=== PATIENT | female | born 1945 | race African-American/Black ===

== ENCOUNTER 2018-07-13 09:32 | Inpatient (IN) | payer MEDICARE, MEDICAID ==
[2018-07-13] VITALS (13 sets, daily range): BP systolic 98–134; BP diastolic 43–71
[~2018-07-13] VITALS: Ht 170.2 cm; Wt 46.8 kg
--- NOTE | 2018-07-13 | NUR ---
NURSE NOTES: more awake and alert at this time, blood sugar 124 and on insulin drip at 1.5 units/hr, on algorithm 2,urine output improved
--- NOTE | 2018-07-13 09:40 | NUR ---
ED Nurse Note: Pt BIBA from [facility] due to ALOC since this morning. According to EMS, pt is nonverbal but is able to sit up usually. Pt skin warm to touch. On continuous O2 via NC at 2lpm. Hx of DM and schizo. Pt presents in the ER calm and looking lethargic.
[2018-07-13] MEDS ORDERED: AMLODIPINE BESY10 MG ORAL (09:44)
[2018-07-13] MEDS ORDERED: MULTIVITAMINS1 EAC2 ORAL (09:44)
[2018-07-13] MEDS ORDERED: GLIPIZIDE5 MG ORAL (09:44)
[2018-07-13] MEDS ORDERED: FLEET ENEMA133 ML RECTAL (09:44)
[2018-07-13] MEDS ORDERED: KLONOPIN1 MG ORAL (09:44)
[2018-07-13] MEDS ORDERED: GLUCAGON HCL1 MG IJ (09:44)
[2018-07-13] MEDS ORDERED: SEROQUEL50 MG ORAL (09:44)
[2018-07-13] MEDS ORDERED: CATAPRES0.1 MG ORAL (09:44)
[2018-07-13] MEDS ORDERED: ASPIR-LOW81 MG ORAL (09:44)
[2018-07-13] MEDS ORDERED: COLACE100 MG ORAL (09:44)
[2018-07-13] MEDS ORDERED: BISACODYL5 MG ORAL (09:44)
[2018-07-13] MEDS ORDERED: SENNA8.6 M2 PO (09:44)
[2018-07-13] MEDS ORDERED: MILK OF MA400 MG/51 ORAL (09:44)
[2018-07-13] MEDS ORDERED: LEXAPRO10 MG ORAL (09:44)
[2018-07-13] MEDS ORDERED: BENZTROPINE ME0.5 MG PO (09:44)
[2018-07-13] MEDS ORDERED: ACETAMINOPHEN325 M1 ORAL (09:44)
--- NOTE | 2018-07-13 09:49 | Emergency Room Report ---
History of Present Illness General Chief Complaint: Altered Mental Status Source: Medical Record, EMS Present Illness HPI Patient has multiple medical problems including dementia currently stays at a long-term. Patient apparently is nonverbal but is able to smile. Patient today was noted to be more confused than usual. Be dehydrated with dry mucous membranes. Patient appear to be staring off into space. No further history is available as time. Symptoms noted to be highly severe patient was brought here further evaluation. There is no advanced directive on this patient. Patient's primary care physician is Dr. Dave Dugan.No other modifying factors. No other associated signs and symptoms. No other complaints were noted. Allergies: Coded Allergies: No Known Allergies (Unverified , 07/13/18) Patient History Past Medical History: DM, HTN, CAD, psych hx - Schizophren, other - Dysphagia Past Surgical History: unable to obtain Social History Narrative staying in long-term Last Menstrual Period: n/a Now: No Reviewed Nursing Documentation: PMH: Agreed; PSxH: Agreed Nursing Documentation-PMH Hx Cardiac Problems: Yes Hx Hypertension: Yes Hx Diabetes: Yes History Of Psychiatric Problem: Yes - schizophrenia Hx Neurological Problems: Yes - dysphagia Review of Systems All Other Systems: limited - Poor mental status Physical Exam Vital Signs Date Time Temp Pulse Resp B/P (MAP) Pulse Ox O2 Delivery O2 Flow Rate FiO2 07/13/18 09:29 98.2 106 16 136/74 97 Room Air 07/13/18 09:32 2.0 Sp02 EP Interpretation: reviewed, normal General Appearance: mild distress, thin, other - Staring off into space. Appears ill. unable to answer questions., Chronically Ill Head: atraumatic Eyes: bilateral eye normal inspection ENT: normal ENT inspection, hearing grossly normal, dry mucus membranes Neck: normal inspection, supple, no bony tend Respiratory: normal inspection, lungs clear, normal breath sounds, no respiratory distress, no retraction, no wheezing Cardiovascular #1: regular rate, rhythm, no edema Gastrointestinal: soft, decreased bowel sounds Genitourinary: no CVA tenderness Musculoskeletal: normal inspection, back normal Neurologic: other - Unable to full assess, appears generally confused Psychiatric: depressed affect Skin: warm/dry Procedures Critical Care Time Critical Care Time Patient had a critical medical condition which untreated could potentially result in life or limb threatening injury. Total critical care time excluding procedures was approximately 65 minutes. Medical Decision Making Diagnostic Impression: Primary Impression: Altered mental status Additional Impressions: Hyperglycemia Severe sepsis Dehydration Hypernatremia ER Course Patient presents emergency department today with acute altered mental status. Difficult considerations include acute electrolyte abnormality, acute infection , acute CVA just to name a few.Given the severity of the patient's presentation I felt this is a highly complex patient. This patient required extensive workup. Patient's laboratory workup shows evidence of severely elevated glucose. Lactic acid level and white blood cell count also elevated as well as elevated sodium. This is consistent with severe hypernatremia. Patient was started on fluid boluses for hydration patient appears to be severely dehydrated. Patient was also started an insulin drip because of the elevated glucose. Patient was started on IV antibiotics as well. Zosyn was ordered. Blood cultures were obtained. Patient will be admitted for further treatment. Case was discussed in detail with Dr. Bryant. Labs Test 07/13/18 10:10 07/13/18 10:37 07/13/18 11:20 White Blood Count 14.1 K/UL (4.8-10.8) Red Blood Count 5.37 M/UL (4.20-5.40) Hemoglobin 14.3 G/DL (12.0-16.0) Hematocrit 46.9 % (37.0-47.0) Mean Corpuscular Volume 87 FL (80-99) Mean Corpuscular Hemoglobin 26.6 PG (27.0-31.0) Mean Corpuscular Hemoglobin Concent 30.4 G/DL (32.0-36.0) Red Cell Distribution Width 13.0 % (11.6-14.8) Platelet Count 398 K/UL (150-450) Mean Platelet Volume 6.9 FL (6.5-10.1) Neutrophils (%) (Auto) % (45.0-75.0) Lymphocytes (%) (Auto) % (20.0-45.0) Monocytes (%) (Auto) % (1.0-10.0) Eosinophils (%) (Auto) % (0.0-3.0) Basophils (%) (Auto) % (0.0-2.0) Differential Total Cells Counted 100 Neutrophils % (Manual) 91 % (45-75) Lymphocytes % (Manual) 6 % (20-45) Monocytes % (Manual) 3 % (1-10) Eosinophils % (Manual) 0 % (0-3) Basophils % (Manual) 0 % (0-2) Band Neutrophils 0 % (0-8) Platelet Estimate Adequate Platelet Morphology Normal Hypochromasia 1+ Urine Color Pale yellow Urine Appearance Slightly cloudy Urine pH 5 (4.5-8.0) Urine Specific [place] 1.015 (1.005-1.035) Urine Protein 1+ (NEGATIVE) Urine Glucose (UA) 4+ (NEGATIVE) Urine Ketones Negative (NEGATIVE) Urine Blood 2+ (NEGATIVE) Urine Nitrite Negative (NEGATIVE) Urine Bilirubin Negative (NEGATIVE) Urine Urobilinogen Normal MG/DL (0.0-1.0) Urine Leukocyte Esterase Negative (NEGATIVE) Urine RBC 0-2 /HPF (0 - 2) Urine WBC 0-2 /HPF (0 - 2) Urine Squamous Epithelial Cells Few /LPF (NONE/OCC) Urine Bacteria Many /HPF (NONE) Sodium Level 157 MMOL/L (136-145) Potassium Level 4.2 MMOL/L (3.5-5.1) Chloride Level 118 MMOL/L (98-107) Carbon Dioxide Level 26 MMOL/L (21-32) Anion Gap 13 mmol/L (5-15) Blood Urea Nitrogen 74 mg/dL (7-18) Creatinine 2.0 MG/DL (0.55-1.30) Estimat Glomerular Filtration Rate mL/min (>60) Glucose Level 852 MG/DL (74-106) Calcium Level 10.4 MG/DL (8.5-10.1) Total Bilirubin 0.4 MG/DL (0.2-1.0) Aspartate Amino Transf (AST/SGOT) 68 U/L (15-37) Alanine Aminotransferase (ALT/SGPT) 36 U/L (12-78) Alkaline Phosphatase 42 U/L (46-116) Troponin I 0.000 ng/mL (0.000-0.056) Pro-B-Type Natriuretic Peptide 658 pg/mL (0-125) Total Protein 8.9 G/DL (6.4-8.2) Albumin 2.6 G/DL (3.4-5.0) Globulin 6.3 g/dL Albumin/Globulin Ratio 0.4 (1.0-2.7) Lipase 58 U/L (73-393) Lactic Acid Level 4.60 mmol/L (0.4-2.0) EKG Diagnostic Results Rate: tachycardiac Rhythm: NSR ST Segments: no acute changes Rhythm Strip Diag. Results EP Interpretation: yes Rate: 115 Rhythm: NSR, no PVC's, no ectopy Chest X-Ray Diagnostic Results Chest X-Ray Diagnostic Results : Chest X-Ray Ordered: Yes # of Views/Limited/Complete: 1 View Indication: Chest Pain EP Interpretation: Yes Interpretation: no consolidation, no effusion, no pneumothorax, no acute cardiopulmonary disease Impression: No acute disease Electronically Signed by: Electronically signed by Avelino Wells MD CT/MRI/US Diagnostic Results CT/MRI/US Diagnostic Results : Imaging Test Ordered: CT head: Negative Last Vital Signs Date Time Temp Pulse Resp B/P (MAP) Pulse Ox O2 Delivery O2 Flow Rate FiO2 07/13/18 09:32 98.2 113 18 131/78 97 Nasal Cannula 2.0 Status: improved Disposition: ADMITTED INPATIENT Condition: Critical Avelino Wells MD Jul 13, 2018 09:49
--- NOTE | 2018-07-13 10:15 | NUR ---
ED Nurse Note: Pt went down to CT.
[2018-07-13 10:19] LABS: HEMATOCRIT 46.9 % (37.0-47.0); HEMOGLOBIN 14.3 G/DL (12.0-16.0); MEAN CORPUSCULAR VOLUME 87 FL (80-99); PLATELET COUNT 398 K/UL (150-450); RED BLOOD COUNT 5.37 M/UL (4.20-5.40); WHITE BLOOD COUNT 14.1 K/UL (4.8-10.8)
--- NOTE | 2018-07-13 10:27 | NUR ---
ED Nurse Note: Pt came back from CT.
--- NOTE | 2018-07-13 10:33 | NUR ---
ED Nurse Note: Xray at the bedside.
[2018-07-13 10:37] LABS: ANION GAP 13 mmol/L (5-15); BLOOD UREA NITROGEN 74 mg/dL (7-18); CALCIUM 10.4 MG/DL (8.5-10.1); CARBON DIOXIDE 26 MMOL/L (21-32); CHLORIDE 118 MMOL/L (98-107); POTASSIUM 4.2 MMOL/L (3.5-5.1); SODIUM 157 MMOL/L (136-145)
[2018-07-13 10:43] LABS: APPEARANCE,URINE SLIGHTLY CLOUDY; BILIRUBIN, URINE NEGATIVE (NEGATIVE); COLOR,URINE PALE YELLOW; GLUCOSE, URINE (UA) 4+ (NEGATIVE); KETONES,URINE NEGATIVE (NEGATIVE); LEUKOCYTE ESTERASE ,URINE NEGATIVE (NEGATIVE); NITRITE,URINE NEGATIVE (NEGATIVE); PH,URINE 5 (4.5-8.0); PROTEIN,URINE 1+ (NEGATIVE); UROBILINOGEN,URINE NORMAL MG/DL (0.0-1.0)
[2018-07-13 10:45] LABS: ALANINE AMINOTRANSFERASE 36 U/L (12-78); ALBUMIN 2.6 G/DL (3.4-5.0); ALBUMIN/GLOBULIN RATIO 0.4 (1.0-2.7); ALKALINE PHOSPHATASE 42 U/L (46-116); ASPARTATE AMINO TRANSFERASE 68 U/L (15-37); BILIRUBIN,TOTAL 0.4 MG/DL (0.2-1.0)
--- NOTE | 2018-07-13 10:50 | NUR ---
ED Nurse Note: Notified pharmacy of insulin drip order. Awaiting for med to arrive.
--- NOTE | 2018-07-13 10:55 | Diagnostic Imaging Report ---
Indications: Altered mental status Technique: Spiral acquisitions obtained through the brain. Angled axial and coronal 5 x 5 mm slices were reconstructed. Total dose length product 1397.2 mGycm. CTDI vol(s) 70.38 mGy. Dose reduction achieved using automated exposure control Comparison: None. Findings: There is age-related enlargement of the ventricles and extra axial CSF spaces. There is periventricular deep white matter low-attenuation, consistent with chronic ischemic changes. No acute intracranial hemorrhage or edema, mass effect, nor midline shift. Visualized orbits and sinuses are unremarkable. The calvarium is intact, hyperostotic. There is some encephalomalacia of the left cerebellar hemisphere. Likely old lacunar infarct is seen in the left posterior internal capsule extending into the hippocampus. Impression: Chronic and age-related changes as described, including evidence of old infarcts Negative for acute intracranial bleed or mass effect The CT scanner at [facility] is accredited by the [employer] and the scans are performed using protocols designed to limit radiation exposure to as low as reasonably achievable to attain images of sufficient resolution adequate for diagnostic evaluation.
--- NOTE | 2018-07-13 10:59 | NUR ---
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
[2018-07-13] MEDS ORDERED: Insulin Rate Change 1 Each MISC PRN (11:30)
[2018-07-13] MEDS ORDERED: Insulin Human Regular 100units/ml 3ml IV PRN ×4 (11:30→18:15)
[2018-07-13] MEDS ORDERED: Albuterol/Ipratropium 3ml neb HHN PRN (11:30)
[2018-07-13] MEDS ORDERED: Miralax 17gm pkt ORAL PRN (11:30)
[2018-07-13] MEDS ORDERED: LORazepam Inj 2mg/ml 1ml IV PRN (11:30)
[2018-07-13] MEDS ORDERED: Morphine Sulfate 4mg/ml Inj (IV USE ONLY) IVP PRN (11:30)
[2018-07-13] MEDS ORDERED: Nitroglycerin Subl 0.4mg tab SL PRN (11:30)
--- NOTE | 2018-07-13 12:02 | NUR ---
ED Nurse Note: Lactic acid reflex sent to lab.
--- NOTE | 2018-07-13 12:08 | NUR ---
ED Nurse Note: Gave telephone report to MARYBETH Davis.
--- NOTE | 2018-07-13 12:10 | NUR ---
ED Nurse Note: Pt transferred to unit. No acute distress noted. Pt had no belongings.
--- NOTE | 2018-07-13 12:15 | NUR ---
NURSE NOTES: Received patient from MARYBETH Torres. Patient is nonverbal, admitted for DKA, VSS, on 2 L nasal cannula, 2 peripheral IV's dry and intact, no skin issues noted, vasquez draining to gravity, safety measures in place. Insulin drip at 6 units/hr at the moment, checked BS and says "critically high." Will continue plan of care.
[2018-07-13] MEDS ORDERED: Piperacillin/Tazobactam 4.5 GM in NS 110 ML IVPB ONE (12:45)
[2018-07-13] MEDS: Zoysn 3.37gm in NS 100ML IVPB SCH ×2 (13:10→22:06)
--- NOTE | 2018-07-13 14:00 | Pulmonolgy Critical Care Note ---
Critical Care - Asmt/Plan Problems: (1) Acute metabolic encephalopathy (2) DKA, type 1 (3) Alzheimer's dementia (4) History of CVA (cerebrovascular accident) Respiratory: monitor respiratory rate, adjust FIO2, CXR Cardiac: continue to monitor HR/BP Renal: F/U I&O Infectious Disease: check cultures, continue antibiotics Gastrointestinal: continue feedings/current rate Endocrine: monitor blood sugar Hematologic: monitor H/H Neurologic: PRN Ativan Prophylaxis: Protonix Notes Reviewed: renal Critical Care - Objective Last 24 Hour Vital Signs Date Time Temp Pulse Resp B/P (MAP) Pulse Ox O2 Delivery O2 Flow Rate FiO2 07/13/18 13:06 97.2 100 20 130/45 98 Nasal Cannula 2.0 07/13/18 12:43 Nasal Cannula 2.0 07/13/18 12:11 98.2 94 16 129/52 100 Nasal Cannula 2.0 100 07/13/18 12:00 Nasal Cannula 2.0 07/13/18 10:18 98.2 109 21 126/71 100 Nasal Cannula 2.0 07/13/18 10:18 109 21 Nasal Cannula 2.0 100 07/13/18 09:32 98.2 113 18 131/78 97 Nasal Cannula 2.0 07/13/18 09:29 98.2 106 16 136/74 97 Room Air Status: sedated Lungs: clear Heart: HR/BP stable Abdomen: soft Extremities: no C/C/E Micro: Microbiology Date/Time Source Procedure Growth Status 07/13/18 12:05 Rectum Received Critical Care - Subjective ROS Limited/Unobtainable: Yes Interval Events: 73 year old female with hx of dementia, [facility] resident, nonverbal brought in by paramedics with CC of more confused than usual. Patient looked dehydrated with dry mucous membranes. No other associated signs and symptoms. No other complaints were noted. Pt was found to be in DKA and admitted to ICU. She looks awake, doesn't follow simple commands. FI02: 100 Sputum Amount: None Fluids: NS at 150 cc/hour Labs: Laboratory Tests Test 07/13/18 10:10 07/13/18 10:37 07/13/18 11:20 White Blood Count 14.1 K/UL (4.8-10.8) H Red Blood Count 5.37 M/UL (4.20-5.40) Hemoglobin 14.3 G/DL (12.0-16.0) Hematocrit 46.9 % (37.0-47.0) Mean Corpuscular Volume 87 FL (80-99) Mean Corpuscular Hemoglobin 26.6 PG (27.0-31.0) L Mean Corpuscular Hemoglobin Concent 30.4 G/DL (32.0-36.0) L Red Cell Distribution Width 13.0 % (11.6-14.8) Platelet Count 398 K/UL (150-450) Mean Platelet Volume 6.9 FL (6.5-10.1) Neutrophils (%) (Auto) % (45.0-75.0) Lymphocytes (%) (Auto) % (20.0-45.0) Monocytes (%) (Auto) % (1.0-10.0) Eosinophils (%) (Auto) % (0.0-3.0) Basophils (%) (Auto) % (0.0-2.0) Differential Total Cells Counted 100 Neutrophils % (Manual) 91 % (45-75) H Lymphocytes % (Manual) 6 % (20-45) L Monocytes % (Manual) 3 % (1-10) Eosinophils % (Manual) 0 % (0-3) Basophils % (Manual) 0 % (0-2) Band Neutrophils 0 % (0-8) Platelet Estimate Adequate Platelet Morphology Normal Hypochromasia 1+ Urine Color Pale yellow Urine Appearance Slightly cloudy Urine pH 5 (4.5-8.0) Urine Specific [place] 1.015 (1.005-1.035) Urine Protein 1+ (NEGATIVE) H Urine Glucose (UA) 4+ (NEGATIVE) H Urine Ketones Negative (NEGATIVE) Urine Blood 2+ (NEGATIVE) H Urine Nitrite Negative (NEGATIVE) Urine Bilirubin Negative (NEGATIVE) Urine Urobilinogen Normal MG/DL (0.0-1.0) Urine Leukocyte Esterase Negative (NEGATIVE) Urine RBC 0-2 /HPF (0 - 2) Urine WBC 0-2 /HPF (0 - 2) Urine Squamous Epithelial Cells Few /LPF (NONE/OCC) Urine Bacteria Many /HPF (NONE) H Sodium Level 157 MMOL/L (136-145) H Potassium Level 4.2 MMOL/L (3.5-5.1) Chloride Level 118 MMOL/L (98-107) H Carbon Dioxide Level 26 MMOL/L (21-32) Anion Gap 13 mmol/L (5-15) Blood Urea Nitrogen 74 mg/dL (7-18) H Creatinine 2.0 MG/DL (0.55-1.30) H Estimat Glomerular Filtration Rate mL/min (>60) Glucose Level 852 MG/DL (74-106) *H Calcium Level 10.4 MG/DL (8.5-10.1) H Total Bilirubin 0.4 MG/DL (0.2-1.0) Aspartate Amino Transf (AST/SGOT) 68 U/L (15-37) H Alanine Aminotransferase (ALT/SGPT) 36 U/L (12-78) Alkaline Phosphatase 42 U/L (46-116) L Troponin I 0.000 ng/mL (0.000-0.056) Pro-B-Type Natriuretic Peptide 658 pg/mL (0-125) H Total Protein 8.9 G/DL (6.4-8.2) H Albumin 2.6 G/DL (3.4-5.0) L Globulin 6.3 g/dL Albumin/Globulin Ratio 0.4 (1.0-2.7) L Lipase 58 U/L (73-393) L Lactic Acid Level 4.60 mmol/L (0.4-2.0) H 2.50 mmol/L (0.66-2.22) H Maisha Bryant MD Jul 13, 2018 14:00
--- NOTE | 2018-07-13 14:00 | NUR ---
NURSE NOTES: Pt blood sugar 197, more alert and oriented, pt able to smile and nod
--- NOTE | 2018-07-13 14:29 | Diagnostic Imaging Report ---
Indication: Cough Technique: One view of the chest Comparison: none Findings: Surgical clips are seen in the left axilla. Lungs and pleural spaces are clear. The heart size is normal. The aorta is calcified Impression: No acute process
--- NOTE | 2018-07-13 15:33 | Consultation ---
History of Present Illness General Date patient seen: Jul 13, 2018 Chief Complaint: Altered Mental Status Present Illness HPI 73 y/o F with hx of Dementia, HTN, CAD, schizophrenia, dysphagia, NH resident presents to ED on 07/13 with worsening confusion, dehydration Allergies: Coded Allergies: No Known Allergies (Unverified , 07/13/18) Medication History Scheduled Amlodipine Besylate* (Amlodipine Besylate*), 10 MG ORAL DAILY, (Reported) Aspirin* (Aspir-Low*), 81 MG ORAL DAILY, (Reported) Bisacodyl* (Dulcolax*), 10 MG ORAL DAILY, (Reported) Clonazepam* (Klonopin*), 1 MG ORAL Q6H, (Reported) Clonidine Hcl* (Catapres*), 0.1 MG ORAL EVERY 6 HOURS, (Reported) Docusate Sodium* (Colace*), 100 MG ORAL DAILY, (Reported) Escitalopram Oxalate* (Lexapro*), 5 MG ORAL DAILY, (Reported) Glipizide* (Glipizide*), 2.5 MG ORAL BIDAC, (Reported) Magnesium Hydroxide* (Milk Of Magnesia*), 30 ML ORAL DAILY, (Reported) Multivitamins* (Multivitamins*), 1 TAB ORAL DAILY, (Reported) Na Phos,M-B/Na Phos,Di-Ba* (Fleet Enema*), 133 ML RECTAL DAILY, (Reported) Quetiapine Fumarate (Seroquel), 50 MG ORAL DAILY, (Reported) Scheduled PRN Acetaminophen* (Acetaminophen 325MG Tablet*), 650 MG ORAL Q6H PRN for For Pain, (Reported) Miscellaneous Medications Benztropine Mesylate* (Cogentin*), 0.5 MG PO, (Reported) Glucagon HCl (Glucagon HCl), 1 MG IJ, (Reported) Sennosides (Senna), 8.6 MG PO, (Reported) Patient History Healthcare decision maker Resuscitation status Advanced Directive on File Patient History Narrative Pmhx: as above Shx: reviewed Fhx: non contributory Review of Systems All Other Systems: negative except mentioned in HPI Physical Exam Physical Exam Narrative General Appearance: mild distress, thin, other - Staring off into space. Appears ill. unable to answer questions., Chronically Ill HEENT: atraumatic, dry mucus membranes Neck: normal inspection, supple, no bony tend Respiratory: normal inspection, lungs clear, normal breath sounds, no respiratory distress, no retraction, no wheezing Cardiovascular regular rate, rhythm, no edema Gastrointestinal: soft, decreased bowel sounds Musculoskeletal: normal inspection, back normal Neurologic: other - Unable to full assess, appears generally confused Skin: warm/dry Last 24 Hour Vital Signs Date Time Temp Pulse Resp B/P (MAP) Pulse Ox O2 Delivery O2 Flow Rate FiO2 07/13/18 13:06 97.2 100 20 130/45 98 Nasal Cannula 2.0 07/13/18 12:43 Nasal Cannula 2.0 07/13/18 12:11 98.2 94 16 129/52 100 Nasal Cannula 2.0 100 07/13/18 12:00 Nasal Cannula 2.0 07/13/18 10:18 98.2 109 21 126/71 100 Nasal Cannula 2.0 07/13/18 10:18 109 21 Nasal Cannula 2.0 100 07/13/18 09:32 98.2 113 18 131/78 97 Nasal Cannula 2.0 07/13/18 09:29 98.2 106 16 136/74 97 Room Air Laboratory Tests Test 07/13/18 10:10 07/13/18 10:37 07/13/18 11:20 White Blood Count 14.1 K/UL (4.8-10.8) H Red Blood Count 5.37 M/UL (4.20-5.40) Hemoglobin 14.3 G/DL (12.0-16.0) Hematocrit 46.9 % (37.0-47.0) Mean Corpuscular Volume 87 FL (80-99) Mean Corpuscular Hemoglobin 26.6 PG (27.0-31.0) L Mean Corpuscular Hemoglobin Concent 30.4 G/DL (32.0-36.0) L Red Cell Distribution Width 13.0 % (11.6-14.8) Platelet Count 398 K/UL (150-450) Mean Platelet Volume 6.9 FL (6.5-10.1) Neutrophils (%) (Auto) % (45.0-75.0) Lymphocytes (%) (Auto) % (20.0-45.0) Monocytes (%) (Auto) % (1.0-10.0) Eosinophils (%) (Auto) % (0.0-3.0) Basophils (%) (Auto) % (0.0-2.0) Differential Total Cells Counted 100 Neutrophils % (Manual) 91 % (45-75) H Lymphocytes % (Manual) 6 % (20-45) L Monocytes % (Manual) 3 % (1-10) Eosinophils % (Manual) 0 % (0-3) Basophils % (Manual) 0 % (0-2) Band Neutrophils 0 % (0-8) Platelet Estimate Adequate Platelet Morphology Normal Hypochromasia 1+ Urine Color Pale yellow Urine Appearance Slightly cloudy Urine pH 5 (4.5-8.0) Urine Specific [place] 1.015 (1.005-1.035) Urine Protein 1+ (NEGATIVE) H Urine Glucose (UA) 4+ (NEGATIVE) H Urine Ketones Negative (NEGATIVE) Urine Blood 2+ (NEGATIVE) H Urine Nitrite Negative (NEGATIVE) Urine Bilirubin Negative (NEGATIVE) Urine Urobilinogen Normal MG/DL (0.0-1.0) Urine Leukocyte Esterase Negative (NEGATIVE) Urine RBC 0-2 /HPF (0 - 2) Urine WBC 0-2 /HPF (0 - 2) Urine Squamous Epithelial Cells Few /LPF (NONE/OCC) Urine Bacteria Many /HPF (NONE) H Sodium Level 157 MMOL/L (136-145) H Potassium Level 4.2 MMOL/L (3.5-5.1) Chloride Level 118 MMOL/L (98-107) H Carbon Dioxide Level 26 MMOL/L (21-32) Anion Gap 13 mmol/L (5-15) Blood Urea Nitrogen 74 mg/dL (7-18) H Creatinine 2.0 MG/DL (0.55-1.30) H Estimat Glomerular Filtration Rate mL/min (>60) Glucose Level 852 MG/DL (74-106) *H Calcium Level 10.4 MG/DL (8.5-10.1) H Total Bilirubin 0.4 MG/DL (0.2-1.0) Aspartate Amino Transf (AST/SGOT) 68 U/L (15-37) H Alanine Aminotransferase (ALT/SGPT) 36 U/L (12-78) Alkaline Phosphatase 42 U/L (46-116) L Troponin I 0.000 ng/mL (0.000-0.056) Pro-B-Type Natriuretic Peptide 658 pg/mL (0-125) H Total Protein 8.9 G/DL (6.4-8.2) H Albumin 2.6 G/DL (3.4-5.0) L Globulin 6.3 g/dL Albumin/Globulin Ratio 0.4 (1.0-2.7) L Lipase 58 U/L (73-393) L Lactic Acid Level 4.60 mmol/L (0.4-2.0) H 2.50 mmol/L (0.66-2.22) H Microbiology Date/Time Source Procedure Growth Status 07/13/18 12:05 Rectum Received Height (Feet): 5 Height (Inches): 7.00 Weight (Pounds): 145 Medications Current Medications Medications (Trade) Dose Ordered Sig/Elizabeth Route PRN Reason Start Time Stop Time Status Last Admin Dose Admin Acetaminophen (Tylenol) 650 mg Q4H PRN ORAL Fever 07/13/18 11:30 08/12/18 11:29 Albuterol/ Ipratropium (Albuterol/ Ipratropium) 3 ml Q4H PRN HHN Shortness of Breath 07/13/18 11:30 07/18/18 11:29 Dextrose (Dextrose 50%) 25 ml Q30M PRN IV HYPOGLYCEMIA 07/13/18 11:30 08/12/18 11:29 Dextrose (Dextrose 50%) 50 ml Q30M PRN IV Hypoglycemia 07/13/18 11:30 08/12/18 11:29 Escitalopram Oxalate (Lexapro) 5 mg DAILY ORAL 07/14/18 09:00 08/13/18 08:59 Heparin Sodium (Porcine) (Heparin 5000 units/ml) 5,000 units EVERY 12 HOURS SUBQ 07/13/18 21:00 08/12/18 20:59 Insulin Human Regular (NovoLIN R) 5 units PRN PRN IV BS 200-299 07/13/18 11:30 08/12/18 11:29 Insulin Human Regular (NovoLIN R) 10 units PRN PRN IV BS=>300 07/13/18 11:30 08/12/18 11:29 07/13/18 13:27 Insulin Human Regular 100 units/ Sodium Chloride 101 ml @ 0 mls/hr Q24H IV 07/13/18 13:15 08/12/18 11:29 07/13/18 13:15 Lorazepam (Ativan 2mg/ml 1ml) 2 mg Q2H PRN IV agitation 07/13/18 11:30 07/20/18 11:29 Miscellaneous Medication (Insulin Rate Change) 1 ea PRN PRN MISC To Patient Comfort 07/13/18 11:30 08/12/18 11:29 Morphine Sulfate (Morphine Sulfate) 4 mg Q4H PRN IVP Severe Pain (Pain Scale 7-10) 07/13/18 11:30 07/20/18 11:29 Nitroglycerin (Ntg) 0.4 mg Q5M PRN SL Prn Chest Pain 07/13/18 11:30 08/12/18 11:29 Ondansetron HCl (Zofran) 4 mg Q6H PRN IVP Nausea & Vomiting 07/13/18 11:30 08/12/18 11:29 Piperacillin Sod/ Tazobactam Sod 3.375 gm/Sodium Chloride 110 ml @ 27.5 mls/hr EVERY 8 HOURS IVPB 07/13/18 14:00 07/18/18 13:59 Polyethylene Glycol (Miralax) 17 gm DAILYPRN PRN ORAL Constipation 07/13/18 11:30 08/12/18 11:29 Sodium Chloride 1,000 ml @ 150 mls/hr Q6H40M IV 07/13/18 11:20 08/12/18 11:19 07/13/18 12:00 Assessment/Plan Assessment/Plan Abx: Zosyn 07/13- Assessment: SIRS- ?sepsis vs reactive to hyperglycemia/dehydration -u/a no pyuria -CXR: Chronic and age-related changes as described, including evidence of old infarcts Negative for acute intracranial bleed or mass effect -07/13 BCx p Afebrile Leukocytosis Lactic acidosis, improving Hyperglycemia Acute on chronic encephalopathy -CT head: Chronic and age-related changes as described, including evidence of old infarcts. Negative for acute intracranial bleed or mass effect Dementia HTN CAD schizophrenia dysphagia NH resident Plan: -Continue empiric Zosyn #1 for now pending cultures -f/u cx -MOnitor CBC/CMP, temperatures Thank you for this consultation. Will continue to follow along with you. Discussed with Maricarmen Ballard M.D. Jul 13, 2018 15:33
--- NOTE | 2018-07-13 15:39 | Consultation ---
Consult Note Consult Note asked to eval for renal failure Seen in ICU on insulin drip Patient has multiple medical problems including dementia currently stays at a fpc. Patient apparently is nonverbal but is able to smile. Patient today was noted to be more confused than usual. Be dehydrated with dry mucous membranes. Patient appear to be staring off into space. No further history is available as time. Symptoms noted to be highly severe patient was brought here further evaluation. There is no advanced directive on this patient. Patient's primary care physician is Dr. Dave Dugan.No other modifying factors. No other associated signs and symptoms. No other complaints were noted. No Known Allergies (Unverified , 07/13/18) Past Medical History: DM, HTN, CAD, psych hx - Schizophren, other - Dysphagia Hx Cardiac Problems: Yes Hx Hypertension: Yes Hx Diabetes: Yes History Of Psychiatric Problem: Yes - schizophrenia Hx Neurological Problems: Yes - dysphagia examined data reviewed discussed with finished goods planner/Plan Renal failure, mainly pre renal, partly renal? Sepsis: High lactate and High WBCs and Tachycardia Previoes CVAs Encephalopathy Hyperglycemia + Proteinuria Hydrate BS control BP control Monitor renal parameters Urine studies avoid Nephrotoxics 2D echo NPO for now Nima Greenfield MD Jul 13, 2018 15:39
--- NOTE | 2018-07-13 16:00 | NUR ---
NURSE NOTES: Pt resting in bed, blood sugar 77- insulim drip turned off.
[2018-07-13 16:24] LABS: ANION GAP 13 mmol/L (5-15); BLOOD UREA NITROGEN 50 mg/dL (7-18); CALCIUM 8.3 MG/DL (8.5-10.1); CARBON DIOXIDE 24 MMOL/L (21-32); CHLORIDE 134 MMOL/L (98-107); CREATININE 1.1 MG/DL (0.55-1.30)
[2018-07-13 16:27] LABS: POTASSIUM 2.6 MMOL/L (3.5-5.1); SODIUM 172 MMOL/L (136-145)
--- NOTE | 2018-07-13 18:00 | NUR ---
NURSE NOTES: Spoke to Dr. Gaona, changed insulin drip to algorithm 2. VSS, will continue plan of care.
--- NOTE | 2018-07-13 18:42 | NUR ---
CASE MANAGEMENT: REVIEW 73/F BIBA FROM [facility] CC: AMS SI: AMS T 98.2 HR 113 RR 21 BP 129/52 SAT 98% NC/2L WBC 14.1 NA 157 BUN 74 CR 2.0 GLUCOSE 852 IS: NS IVF BOLUS X1 NOVOLIN R 100 UNITS IV X1 PATIENT ADMITTED TO ICU 07/13/2018 DCP: PATIENT IS FROM [facility]
--- NOTE | 2018-07-13 19:12 | NUR ---
HAND-OFF: Report given to MARYBETH Aquino.
--- NOTE | 2018-07-13 19:15 | History and Physical Report ---
DATE OF ADMISSION: 07/13/2018 TIME SEEN: 2 p.m. CONSULTANTS: 1. Maisha Bryant M.D. 2. Shyam Gaona M.D. 3. Sascha Tom M.D. 4. Katie Walker M.D. 5. Nima Greenfield M.D. 6. Chalo Mcgraw M.D. 7. Reagan Morales M.D. CHIEF COMPLAINT: Altered mental status, DKA, renal failure. BRIEF HISTORY: This is a 73-year-old female from [facility] presented with the above-mentioned diagnosis, was found to be altered. Blood sugar in the ER was found to be 852. The patient was put on insulin drip and admitted to ICU for further care. Currently, O2 NC, confused in bed, lethargic, not talking, not responding to questions. REVIEW OF SYSTEMS: Unavailable. PAST MEDICAL HISTORY: Diabetes, possible renal failure. PAST SURGICAL HISTORY: Unknown. MEDICATIONS: Lexapro, heparin, Zosyn, insulin, IV fluids, lorazepam, Zofran, morphine, nitroglycerin, albuterol. ALLERGIES: Denies. SOCIAL HISTORY: Unable to obtain secondary to the patient's condition. PHYSICAL EXAMINATION: GENERAL: Lethargic in bed, oriented x3, no acute distress. VITAL SIGNS: Temperature is 97 degrees, pulse 100, respirations 20, and blood pressure 130/45. CARDIOVASCULAR: No murmur. LUNGS: Poor air exchange. ABDOMEN: Bowel sounds distant. EXTREMITIES: No cyanosis, clubbing, or edema. NEUROLOGIC: The patient moves all extremities, slightly weak. LABORATORY AND DIAGNOSTIC DATA: White count 14, otherwise CBC is normal. BMP shows sodium 157, chloride 118, BUN and creatinine 74 and 2.0, glucose 850. Lactic acid 4.6 and 2.5. AST 65. Troponin 0.00. Alkaline phosphatase 42. Albumin 2.6. Lipase 58. Urinalysis show 2+ blood, otherwise normal. ASSESSMENT: 1. DKA, hyperglycemia. 2. Altered mental status. 3. Diabetes. 4. Tachycardia. 5. Renal failure. 6. Malnutrition. PLAN: 1. O2 and pulmonary treatment. 2. Antibiotics per Infectious Diseases. 3. Blood pressure and blood sugar control. 4. Dietary followup. 5. Nephrology followup. 6. CBC and BMP in morning. Dave Dugan D.O. DR: Tavo JOB#: [id number] CC:
[2018-07-13] MEDS ORDERED: Potassium Phosphate 30 MM in NS 275 ML IV SCH (20:00)
--- NOTE | 2018-07-13 20:00 | NUR ---
NURSE NOTES: received in no acute distress, personnel monitor shows nsr, o2 sat 100% on o2 2lnc, lethargic at this time but able to follow simple commands, non verbal at this time, on insulin drip following algorithm 2 at this time, will do accucheck every hour, iv sites good to left hand and right hand,repositioned, both lower extremities contracted, vasquez cath intact and patent with cloudy,straw colored urine, scanty urine output at this time.
[2018-07-13] MEDS: Insulin Rate Change 1 Each MISC PRN ×2 (20:10→22:12)
--- NOTE | 2018-07-13 20:31 | Cardiology Progress Note ---
Assessment/Plan Assessment/Plan [id number] Objective Last 24 Hour Vital Signs Date Time Temp Pulse Resp B/P (MAP) Pulse Ox O2 Delivery O2 Flow Rate FiO2 07/13/18 19:00 84 16 107/50 (69) 100 07/13/18 18:00 87 16 103/43 (63) 100 07/13/18 17:00 95 16 110/62 (78) 100 07/13/18 16:00 Nasal Cannula 2.0 07/13/18 16:00 98 07/13/18 16:00 97.9 98 16 98/51 (67) 100 07/13/18 15:00 98 16 122/62 (82) 100 07/13/18 14:00 99 16 134/59 (84) 100 07/13/18 13:06 97.2 100 20 130/45 98 Nasal Cannula 2.0 07/13/18 13:00 98.0 100 16 116/59 (78) 100 07/13/18 12:43 Nasal Cannula 2.0 07/13/18 12:11 98.2 94 16 129/52 100 Nasal Cannula 2.0 100 07/13/18 12:00 Nasal Cannula 2.0 07/13/18 10:18 98.2 109 21 126/71 100 Nasal Cannula 2.0 07/13/18 10:18 109 21 Nasal Cannula 2.0 100 07/13/18 09:32 98.2 113 18 131/78 97 Nasal Cannula 2.0 07/13/18 09:29 98.2 106 16 136/74 97 Room Air Laboratory Tests Test 07/13/18 10:10 07/13/18 10:37 07/13/18 11:20 07/13/18 15:57 White Blood Count 14.1 K/UL (4.8-10.8) H Red Blood Count 5.37 M/UL (4.20-5.40) Hemoglobin 14.3 G/DL (12.0-16.0) Hematocrit 46.9 % (37.0-47.0) Mean Corpuscular Volume 87 FL (80-99) Mean Corpuscular Hemoglobin 26.6 PG (27.0-31.0) L Mean Corpuscular Hemoglobin Concent 30.4 G/DL (32.0-36.0) L Red Cell Distribution Width 13.0 % (11.6-14.8) Platelet Count 398 K/UL (150-450) Mean Platelet Volume 6.9 FL (6.5-10.1) Neutrophils (%) (Auto) % (45.0-75.0) Lymphocytes (%) (Auto) % (20.0-45.0) Monocytes (%) (Auto) % (1.0-10.0) Eosinophils (%) (Auto) % (0.0-3.0) Basophils (%) (Auto) % (0.0-2.0) Differential Total Cells Counted 100 Neutrophils % (Manual) 91 % (45-75) H Lymphocytes % (Manual) 6 % (20-45) L Monocytes % (Manual) 3 % (1-10) Eosinophils % (Manual) 0 % (0-3) Basophils % (Manual) 0 % (0-2) Band Neutrophils 0 % (0-8) Platelet Estimate Adequate Platelet Morphology Normal Hypochromasia 1+ Urine Color Pale yellow Urine Appearance Slightly cloudy Urine pH 5 (4.5-8.0) Urine Specific [place] 1.015 (1.005-1.035) Urine Protein 1+ (NEGATIVE) H Urine Glucose (UA) 4+ (NEGATIVE) H Urine Ketones Negative (NEGATIVE) Urine Blood 2+ (NEGATIVE) H Urine Nitrite Negative (NEGATIVE) Urine Bilirubin Negative (NEGATIVE) Urine Urobilinogen Normal MG/DL (0.0-1.0) Urine Leukocyte Esterase Negative (NEGATIVE) Urine RBC 0-2 /HPF (0 - 2) Urine WBC 0-2 /HPF (0 - 2) Urine Squamous Epithelial Cells Few /LPF (NONE/OCC) Urine Bacteria Many /HPF (NONE) H Sodium Level 157 MMOL/L (136-145) H 172 MMOL/L (136-145) #*H Potassium Level 4.2 MMOL/L (3.5-5.1) 2.6 MMOL/L (3.5-5.1) *L Chloride Level 118 MMOL/L (98-107) H 134 MMOL/L (98-107) H Carbon Dioxide Level 26 MMOL/L (21-32) 24 MMOL/L (21-32) Anion Gap 13 mmol/L (5-15) 13 mmol/L (5-15) Blood Urea Nitrogen 74 mg/dL (7-18) H 50 mg/dL (7-18) H Creatinine 2.0 MG/DL (0.55-1.30) H 1.1 MG/DL (0.55-1.30) Estimat Glomerular Filtration Rate mL/min (>60) mL/min (>60) Glucose Level 852 MG/DL (74-106) *H 77 MG/DL (74-106) # Calcium Level 10.4 MG/DL (8.5-10.1) H 8.3 MG/DL (8.5-10.1) #L Total Bilirubin 0.4 MG/DL (0.2-1.0) Aspartate Amino Transf (AST/SGOT) 68 U/L (15-37) H Alanine Aminotransferase (ALT/SGPT) 36 U/L (12-78) Alkaline Phosphatase 42 U/L (46-116) L Troponin I 0.000 ng/mL (0.000-0.056) Pro-B-Type Natriuretic Peptide 658 pg/mL (0-125) H Total Protein 8.9 G/DL (6.4-8.2) H Albumin 2.6 G/DL (3.4-5.0) L Globulin 6.3 g/dL Albumin/Globulin Ratio 0.4 (1.0-2.7) L Lipase 58 U/L (73-393) L Lactic Acid Level 4.60 mmol/L (0.4-2.0) H 2.50 mmol/L (0.66-2.22) H C-Reactive Protein, Quantitative 18.0 mg/dL (0.00-0.90) H Microbiology Date/Time Source Procedure Growth Status 07/13/18 12:05 Rectum Received Chalo Mcgraw MD Jul 13, 2018 20:31
[2018-07-13] MEDS: Pantoprazole Inj IVP SCH (20:52)
[2018-07-13] MEDS: Heparin 5000 units/ml inj SUBQ SCH (20:55)
--- NOTE | 2018-07-13 22:00 | NUR ---
NURSE NOTES: in no distress, continue to monitor accucheck blood sugar every hour
--- NOTE | 2018-07-13 22:30 | Consultation ---
DATE OF CONSULTATION: 07/13/2018 CARDIOLOGY CONSULTATION CONSULTING PHYSICIAN: Chalo Mcgraw M.D. REFERRING PHYSICIAN: Dave Dugan D.O. REASON FOR REFERRAL: Hypotension. HISTORY OF PRESENT ILLNESS: This is a elderly female, who is not able to provide any meaningful history whatsoever. The patient's information is obtained from review of the patient's records. Ditcher run sheet indicating the patient was fine, but also altered level of consciousness more than normal [facility] The patient usually apparently is nonverbal, but today the main concern was that she was more lethargic and not wanting to perform her usual activities. No visible sign of trauma. Positive incontinence of the urine and the patient was noted to have a blood pressure of 116/74, subsequently in the 120s to 140s/78 with heart rates in the 115s. The patient was transferred from the convalescent facility to [facility]. She is not febrile at this time. 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 ALLERGIES: There have been no reports of any allergies according to the chart and the records. SOCIAL HISTORY: She is a resident of a convalescent facility. MEDICATIONS: Medications at the [facility] facility includes aspirin 81 mg a day, clonidine as needed, Cogentin, Colace, Dulcolax, Fleet Enema, glipizide, Klonopin, Lexapro, milk of magnesia, multivitamins, Norvasc 10 mg daily, senna, Seroquel, and Tylenol tablets. REVIEW OF SYSTEMS: Unable to obtain. PHYSICAL EXAMINATION: GENERAL: Shows to be elderly female, contracted, in no respiratory distress, in left lateral decubitus position. NECK: Supple. LUNGS: Appear to be clear. CARDIAC: Regular rhythm. No heaves or thrills. ABDOMEN: Soft. EXTREMITIES: Contracted. NEUROLOGICAL: Noncommunicative or responsive. LABORATORY AND DIAGNOSTIC DATA: Sodium 172, potassium 2.2, chloride 134, bicarb of 24, BUN 50, creatinine 1.1, and glucose of 77. Glucose at the time of admission was 852. Calcium is 8.3. CRP of 18. Her troponin was 0.0 at the time of admission. Sodium was 157 earlier with BUN of 74, creatinine 2.0, and proBNP is 689. Total protein is 8.9. Urinalysis 0 to [address] reportedly showed chronic age-related changes, described evidence of old infarction, negative for acute bleed. A chest x-ray performed showed no acute processes. The patient's EKG shows sinus rhythm, normal QRS axis, and no ST or T-wave abnormalities. ASSESSMENT AND PLAN: 1. Diabetes mellitus, uncontrolled with hyperosmolar nonketotic state. 2. Schizophrenia history. 3. Altered mentation, superimposed . 4. History of hypertension. Dr. Dugan, this patient was seen in cardiac consultation. The patient is noncommunicative of any kind. Laboratory values, as noted, the patient's blood pressure improved from 98/51 to 134/51. Continue IV hydration. She needs free water and diabetic control. Use of insulin and hydration. Watch potassium supplement as needed and I will follow the patient. Chalo Mcgraw M.D. DR: MARTA JOB#: [id number] CC:
--- NOTE | 2018-07-13 23:39 | Physician Query ---
Dear Dr. Danielle GREENFIELD Date: __07/13/2018_ Gynecological Assistant/CDS Name: __Alyse PEREZ Gynecological Assistant/CDS Phone No.: Exercise your independent professional judgment when responding to the query. Questions asked do not imply a particular answer is desired or expected. We greatly appreciate your clarification on this issue. CLINICAL DOCUMENTATION STATES: "RENAL FAILURE" - documented in Dr. Greenfield's Consultation note CLINICAL FINDINGS SHOW: Creatinine - 2.0 mg/dl MANAGEMENT/Treatment = Hydration, monitor renal parameter NEPHROLOGY CONSULTATION Please specify the ACUITY of the RENAL FAILURE: [] ACUTE [] CHRONIC [*] ACUTE ON CHRONIC [] OTHER Condition Present on Admission: [*] Yes [] No []Clinically Undeterminable Please also document in your Progress Notes and/or Discharge Summary and indicate if the condition was present on admission. MONTSERRAT GREENFIELD M.D. DATE & TIME [facility]
[2018-07-14] VITALS (20 sets, daily range): BP systolic 100–142; BP diastolic 37–77
[2018-07-14] MEDS: Insulin Rate Change 1 Each MISC PRN (00:10)
--- NOTE | 2018-07-14 01:00 | NUR ---
HAND-OFF: Report given to alva clements.
--- NOTE | 2018-07-14 01:10 | NUR ---
NURSE NOTES: Recvd.quiet in bed occ.moans,stiff and contracted.See Phy.assessment.Insulin drip in progress R/T Hyperglycemia adjusted ff.protocol,FSBS q 1hr.Pos. chg.See V/s Scope SR-ST.On close monitoring.
[2018-07-14 05:44] LABS: BASOPHILS % (AUTO) 0.4 % (0.0-2.0); EOSINOPHILS % (AUTO) 0.4 % (0.0-3.0); HEMOGLOBIN 10.7 G/DL (12.0-16.0); LYMPHOCYTES % (AUTO) 14.5 % (20.0-45.0); MEAN CORPUSCULAR VOLUME 85 FL (80-99); MONOCYTES % (AUTO) 5.6 % (1.0-10.0); NEUTROPHILS % (AUTO) 79.1 % (45.0-75.0); PLATELET COUNT 248 K/UL (150-450); RED BLOOD COUNT 3.99 M/UL (4.20-5.40); RED CELL DISTRIBUTION WIDTH 12.7 % (11.6-14.8); WHITE BLOOD COUNT 14.9 K/UL (4.8-10.8)
[2018-07-14] MEDS: Zoysn 3.37gm in NS 100ML IVPB SCH ×2 (05:50→14:31)
[2018-07-14 06:09] LABS: ANION GAP 13 mmol/L (5-15); BLOOD UREA NITROGEN 40 mg/dL (7-18); CALCIUM 8.8 MG/DL (8.5-10.1); CARBON DIOXIDE 23 MMOL/L (21-32); CHLORIDE 128 MMOL/L (98-107); CREATININE 1.1 MG/DL (0.55-1.30)
[2018-07-14 06:11] LABS: INR 1.1 (0.9-1.1)
[2018-07-14 06:25] LABS: ALANINE AMINOTRANSFERASE 38 U/L (12-78); ALBUMIN 1.9 G/DL (3.4-5.0); ALKALINE PHOSPHATASE 30 U/L (46-116); ASPARTATE AMINO TRANSFERASE 119 U/L (15-37); BILIRUBIN,DIRECT < 0.1 MG/DL (0.0-0.3); BILIRUBIN,TOTAL 0.4 MG/DL (0.2-1.0); CHOLESTEROL 164 MG/DL (< 200); HDL CHOLESTEROL 39 MG/DL (40-60); PHOSPHORUS 5.2 MG/DL (2.5-4.9); TRIGLYCERIDES 78 MG/DL (30-150)
[2018-07-14 06:29] LABS: SODIUM 164 MMOL/L (136-145)
[2018-07-14 06:30] LABS: CREATINE KINASE 3603 U/L (26-308); GAMMA GLUTAMYL TRANSPEPTIDASE 10 U/L (5-85)
--- NOTE | 2018-07-14 07:40 | NUR ---
NURSE NOTES: Report received from MARYBETH Acosta
--- NOTE | 2018-07-14 08:00 | NUR ---
NURSE NOTES: Awake when received. Patient afebrile and responsive to verbal and tactile stimuli.Alert to name and insulin drip discontinue.Started on insulin sliding scale and Levemir at 12 units.On NC at 2LPM and saturate at 99% at this time.No s/s acute distress.Peripheral line left hand /22G and Right hand 20 running D5W at 75cc/hr. No s/s infiltration,line patent.Turned and repositioned. Kept clean and dry.HOB elevated to prevent aspiration.Will continue to monitor.
[2018-07-14] MEDS: Pantoprazole Inj IVP SCH ×2 (09:40→21:20)
[2018-07-14] MEDS: Heparin 5000 units/ml inj SUBQ SCH ×2 (09:42→21:21)
[2018-07-14] MEDS: Levemir Flexpen SUBQ SCH ×2 (09:57→17:12)
[2018-07-14] MEDS: NovoLOG Insulin Flexpen SUBQ SCH ×4 (09:58→21:00)
--- NOTE | 2018-07-14 10:34 | NUR ---
NURSE NOTES: Seen by Dr Bryant and Dr Greenfield, will follow up with new orders. Order to transfer pt to Tele, charge nurse made aware.Kept o close monitoring.
--- NOTE | 2018-07-14 11:02 | Pulmonolgy Critical Care Note ---
Critical Care - Asmt/Plan Problems: (1) Hyperosmolar coma (2) Acute metabolic encephalopathy (3) Alzheimer's dementia (4) History of CVA (cerebrovascular accident) Respiratory: monitor respiratory rate, adjust FIO2, CXR Cardiac: continue pressors, continue to monitor HR/BP Renal: F/U I&O, keep IV fluid, decrease IV fluid, check electrolytes Infectious Disease: check cultures, continue antibiotics Gastrointestinal: hold feedings Endocrine: monitor blood sugar, start insulin drip, continue sliding scale insulin Hematologic: monitor H/H, transfuse if hgb<8.5 Neurologic: PRN Ativan, PRN Morphine, keep patient comfortable Affect: PRN ativan Notes 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, 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, 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 Critical Care - Objective Last 24 Hour Vital Signs Date Time Temp Pulse Resp B/P (MAP) Pulse Ox O2 Delivery O2 Flow Rate FiO2 07/14/18 10:00 122 12 142/47 (78) 99 07/14/18 09:00 115 10 132/45 (74) 99 07/14/18 08:00 Nasal Cannula 2.0 07/14/18 08:00 115 07/14/18 08:00 98.7 104 10 133/46 (75) 99 07/14/18 07:00 108 19 136/63 (87) 100 07/14/18 06:00 105 19 121/49 (73) 100 07/14/18 05:00 97 16 100/37 (58) 100 07/14/18 04:00 Nasal Cannula 2.0 07/14/18 04:00 97.2 104 18 117/55 (75) 100 07/14/18 03:00 105 17 115/55 (75) 100 07/14/18 02:00 103 16 123/58 (79) 100 07/14/18 01:00 97.6 105 16 107/59 (75) 100 07/14/18 00:25 88 07/14/18 00:23 Nasal Cannula 2.0 07/14/18 00:00 87 16 105/77 (86) 100 07/13/18 23:00 90 16 115/64 (81) 100 07/13/18 22:00 88 16 118/54 (75) 100 07/13/18 21:00 84 18 116/47 (70) 100 07/13/18 20:00 Nasal Cannula 2.0 07/13/18 20:00 97.2 95 18 124/47 (72) 100 07/13/18 20:00 95 07/13/18 19:00 84 16 107/50 (69) 100 07/13/18 18:00 87 16 103/43 (63) 100 07/13/18 17:00 95 16 110/62 (78) 100 07/13/18 16:00 Nasal Cannula 2.0 07/13/18 16:00 98 07/13/18 16:00 97.9 98 16 98/51 (67) 100 07/13/18 15:00 98 16 122/62 (82) 100 07/13/18 14:00 99 16 134/59 (84) 100 07/13/18 13:06 97.2 100 20 130/45 98 Nasal Cannula 2.0 07/13/18 13:00 98.0 100 16 116/59 (78) 100 07/13/18 12:43 Nasal Cannula 2.0 07/13/18 12:11 98.2 94 16 129/52 100 Nasal Cannula 2.0 100 07/13/18 12:00 Nasal Cannula 2.0 Status: awake Condition: critical, improving HEENT: atraumatic Lungs: clear Heart: HR/BP stable Abdomen: soft, non-tender Extremities: no C/C/E Decubiti: location Micro: Microbiology Date/Time Source Procedure Growth Status 07/13/18 10:10 Urine,Clean Catch Urine Culture - Preliminary Gram Negative Bacillus 1 Resulted 07/13/18 12:05 Rectum Received Accucheck: 182 Critical Care - Subjective ROS Limited/Unobtainable: Yes Condition: critical EKG Rhythm: Sinus Rhythm FI02: 100 Sputum Amount: None I&O: Intake and Output 07/13/18 07/14/18 19:00 07:00 Intake Total 1450 ml 1541.5 ml Output Total 61 ml 485 ml Balance 1389 ml 1056.5 ml Intake IV Total 1450 ml 1541.5 ml Output Urine Total 61 ml 485 ml # Voids 1 CXR: RAÚL Labs: Laboratory Tests Test 07/13/18 11:20 07/13/18 15:57 07/13/18 18:00 07/14/18 04:50 Lactic Acid Level 2.50 mmol/L (0.66-2.22) H 1.80 mmol/L (0.4-2.0) Sodium Level 172 MMOL/L (136-145) #*H 164 MMOL/L (136-145) *H Potassium Level 2.6 MMOL/L (3.5-5.1) *L 4.0 MMOL/L (3.5-5.1) # Chloride Level 134 MMOL/L (98-107) H 128 MMOL/L (98-107) H Carbon Dioxide Level 24 MMOL/L (21-32) 23 MMOL/L (21-32) Anion Gap 13 mmol/L (5-15) 13 mmol/L (5-15) Blood Urea Nitrogen 50 mg/dL (7-18) H 40 mg/dL (7-18) H Creatinine 1.1 MG/DL (0.55-1.30) 1.1 MG/DL (0.55-1.30) Estimat Glomerular Filtration Rate mL/min (>60) mL/min (>60) Glucose Level 77 MG/DL (74-106) # 153 MG/DL (74-106) H Calcium Level 8.3 MG/DL (8.5-10.1) #L 8.8 MG/DL (8.5-10.1) C-Reactive Protein, Quantitative 18.0 mg/dL (0.00-0.90) H Urine Random Sodium < 20 mmol/L (20-110) L White Blood Count 14.9 K/UL (4.8-10.8) H Red Blood Count 3.99 M/UL (4.20-5.40) L Hemoglobin 10.7 G/DL (12.0-16.0) L Hematocrit 34.0 % (37.0-47.0) L Mean Corpuscular Volume 85 FL (80-99) Mean Corpuscular Hemoglobin 26.9 PG (27.0-31.0) L Mean Corpuscular Hemoglobin Concent 31.6 G/DL (32.0-36.0) L Red Cell Distribution Width 12.7 % (11.6-14.8) Platelet Count 248 K/UL (150-450) Mean Platelet Volume 7.8 FL (6.5-10.1) Neutrophils (%) (Auto) 79.1 % (45.0-75.0) H Lymphocytes (%) (Auto) 14.5 % (20.0-45.0) L Monocytes (%) (Auto) 5.6 % (1.0-10.0) Eosinophils (%) (Auto) 0.4 % (0.0-3.0) Basophils (%) (Auto) 0.4 % (0.0-2.0) Prothrombin Time 11.6 SEC (9.30-11.50) H Prothromb Time International Ratio 1.1 (0.9-1.1) Activated Partial Thromboplast Time 33 SEC (23-33) Hemoglobin A1c 10.5 % (4.3-6.0) H Uric Acid 6.4 MG/DL (2.6-7.2) Phosphorus Level 5.2 MG/DL (2.5-4.9) H Magnesium Level 2.1 MG/DL (1.8-2.4) Total Bilirubin 0.4 MG/DL (0.2-1.0) Direct Bilirubin < 0.1 MG/DL (0.0-0.3) Gamma Glutamyl Transpeptidase 10 U/L (5-85) Aspartate Amino Transf (AST/SGOT) 119 U/L (15-37) H Alanine Aminotransferase (ALT/SGPT) 38 U/L (12-78) Alkaline Phosphatase 30 U/L (46-116) L Total Creatine Kinase 3603 U/L (26-308) H Pro-B-Type Natriuretic Peptide 401 pg/mL (0-125) H Total Protein 6.2 G/DL (6.4-8.2) #L Albumin 1.9 G/DL (3.4-5.0) L Triglycerides Level 78 MG/DL (30-150) Cholesterol Level 164 MG/DL (< 200) LDL Cholesterol 100 mg/dL (<100) HDL Cholesterol 39 MG/DL (40-60) L Cholesterol/HDL Ratio 4.2 (3.3-4.4) Vitamin B12 Level 1429 PG/ML (193-986) H Folate 8.0 NG/ML (8.6-58.9) L Thyroid Stimulating Hormone (TSH) 0.686 uiU/mL (0.358-3.740) Maisha Bryant MD Jul 14, 2018 11:02
--- NOTE | 2018-07-14 11:50 | NUR ---
NURSE NOTES: Bedside swallow done and per ST recommendation,keep patient NPO due to level of awareness and reevaluation tomorrow.Pt clean and dry.
--- NOTE | 2018-07-14 12:01 | NUR ---
NURSE NOTES: Patient turned and repositioned.Kept clean and dry.Will continue to monitor.
--- NOTE | 2018-07-14 12:08 | Nephrology Progress Note ---
Assessment/Plan Problem List: (1) Dehydration (2) Hypernatremia (3) Hyperglycemia (4) Acute metabolic encephalopathy Assessment Renal failure, mainly pre renal, partly renal? Sepsis: High lactate and High WBCs and Tachycardia Previoes CVAs Encephalopathy Hyperglycemia + Proteinuria Plan Hydrate BS control BP control Monitor renal parameters Urine studies avoid Nephrotoxics 2D echo NPO for now Subjective ROS Limited/Unobtainable: No Constitutional: Reports: malaise, weakness Objective Objective Last 24 Hour Vital Signs Date Time Temp Pulse Resp B/P (MAP) Pulse Ox O2 Delivery O2 Flow Rate FiO2 07/14/18 12:00 Nasal Cannula 2.0 07/14/18 11:00 120 12 140/55 (83) 99 07/14/18 10:00 122 12 142/47 (78) 99 07/14/18 09:00 115 10 132/45 (74) 99 07/14/18 08:00 Nasal Cannula 2.0 07/14/18 08:00 115 07/14/18 08:00 98.7 104 10 133/46 (75) 99 07/14/18 07:00 108 19 136/63 (87) 100 07/14/18 06:00 105 19 121/49 (73) 100 07/14/18 05:00 97 16 100/37 (58) 100 07/14/18 04:00 Nasal Cannula 2.0 07/14/18 04:00 97.2 104 18 117/55 (75) 100 07/14/18 03:00 105 17 115/55 (75) 100 07/14/18 02:00 103 16 123/58 (79) 100 07/14/18 01:00 97.6 105 16 107/59 (75) 100 07/14/18 00:25 88 07/14/18 00:23 Nasal Cannula 2.0 07/14/18 00:00 87 16 105/77 (86) 100 07/13/18 23:00 90 16 115/64 (81) 100 07/13/18 22:00 88 16 118/54 (75) 100 07/13/18 21:00 84 18 116/47 (70) 100 07/13/18 20:00 Nasal Cannula 2.0 07/13/18 20:00 97.2 95 18 124/47 (72) 100 07/13/18 20:00 95 07/13/18 19:00 84 16 107/50 (69) 100 07/13/18 18:00 87 16 103/43 (63) 100 07/13/18 17:00 95 16 110/62 (78) 100 07/13/18 16:00 Nasal Cannula 2.0 07/13/18 16:00 98 07/13/18 16:00 97.9 98 16 98/51 (67) 100 07/13/18 15:00 98 16 122/62 (82) 100 07/13/18 14:00 99 16 134/59 (84) 100 07/13/18 13:06 97.2 100 20 130/45 98 Nasal Cannula 2.0 07/13/18 13:00 98.0 100 16 116/59 (78) 100 07/13/18 12:43 Nasal Cannula 2.0 07/13/18 12:11 98.2 94 16 129/52 100 Nasal Cannula 2.0 100 Intake and Output 07/13/18 07/14/18 19:00 07:00 Intake Total 1450 ml 1541.5 ml Output Total 61 ml 485 ml Balance 1389 ml 1056.5 ml Intake IV Total 1450 ml 1541.5 ml Output Urine Total 61 ml 485 ml # Voids 1 Laboratory Tests 07/13/18 15:57: Sodium Level 172#*H, Potassium Level 2.6*L, Chloride Level 134H, Carbon Dioxide Level 24, Anion Gap 13, Blood Urea Nitrogen 50H, Creatinine 1.1, Estimat Glomerular Filtration Rate , Glucose Level 77#, Calcium Level 8.3#L, C-Reactive Protein, Quantitative 18.0H 07/13/18 18:00: Urine Random Sodium < 20L 07/14/18 04:50: Sodium Level 164*H, Potassium Level 4.0#, Chloride Level 128H, Carbon Dioxide Level 23, Anion Gap 13, Blood Urea Nitrogen 40H, Creatinine 1.1, Estimat Glomerular Filtration Rate , Glucose Level 153H, Calcium Level 8.8, White Blood Count 14.9H, Red Blood Count 3.99L, Hemoglobin 10.7L, Hematocrit 34.0L, Mean Corpuscular Volume 85, Mean Corpuscular Hemoglobin 26.9L, Mean Corpuscular Hemoglobin Concent 31.6L, Red Cell Distribution Width 12.7, Platelet Count 248, Mean Platelet Volume 7.8, Neutrophils (%) (Auto) 79.1H, Lymphocytes (%) (Auto) 14.5L, Monocytes (%) (Auto) 5.6, Eosinophils (%) (Auto) 0.4, Basophils (%) (Auto ) 0.4, Prothrombin Time 11.6H, Prothromb Time International Ratio 1.1, Activated Partial Thromboplast Time 33, Hemoglobin A1c 11.1H, Lactic Acid Level 1.80, Uric Acid 6.4, Phosphorus Level 5.2H, Magnesium Level 2.1, Total Bilirubin 0.4, Direct Bilirubin < 0.1, Gamma Glutamyl Transpeptidase 10, Aspartate Amino Transf (AST/SGOT) 119H, Alanine Aminotransferase (ALT/SGPT) 38, Alkaline Phosphatase 30L, Total Creatine Kinase 3603H, Pro-B-Type Natriuretic Peptide 401H, Total Protein 6.2#L, Albumin 1.9L, Triglycerides Level 78, Cholesterol Level 164, LDL Cholesterol 100, HDL Cholesterol 39L, Cholesterol/ HDL Ratio 4.2, Vitamin B12 Level 1429H, Folate 8.0L, Thyroid Stimulating Hormone (TSH) 0.686 Height (Feet): 5 Height (Inches): 7.00 Weight (Pounds): 123 General Appearance: no apparent distress, lethargic Cardiovascular: tachycardia Respiratory/Chest: decreased breath sounds Abdomen: distended Nima Greenfield MD Jul 14, 2018 12:08
--- NOTE | 2018-07-14 13:36 | NUR ---
ST NOTE: BEDSIDE SWALLOW EVAL RECEIVED BEDSIDE SWALLOW EVAL ORDER CHART REVIEWED PRIOR THE EVALUATION PT IS A 73-YEAR-OLD FEMALE WHO WAS ADMITTED DUE TO ALOC. DYSPHAGIA RISK FACTORS: METABOLIC ENCEPHALOPATHY, H/O DYSPHAGIA, ALZHEIMER'S DEMENTIA, H/O CVA(PER HEAD CT:LIKELY OLD LACUNAR INFARCT IS SEEN IN THE L POSTERIOR INTERNAL CAPSULE EXTENDING INTO THE HIPPOCAMP[facility]), HTN, DMII, PSYCH(SCHIZOPHRENIA, DEPRESSIVE DISORDER, ANXIETY), PER SNF NOTE, PT HAS POCKETING/RESIDUE(REQUIRED PT TO USE LINGUAL SWEEP OR LIQUID WASH). PER CXR: NO ACUTE PROCESS PLOF: PT RESIDES AT [facility]. PER CHART, PT WAS ON PUREE MISBAH CCHO WITH THIN LIQUIDS DIET. PER NOTE FROM RESIDENTIAL, PT HAS POCKETING OR RESIDUE ISSUES. NO POLST WAS NOTED IN THE CHART REGARDING TUBE FEEDING IF INDICATED. CURRENT STATUS: PT SEEN AT BEDSIDE, AWAKE WITH CUES, OTHERWISE, PT IS NOT LIKELY MAINTAINING ALERTNESS. PER ANN RUEDA, PT SOMETIMES SPIT OUT THE CRUSHED MED WITH PUREED, BUT TOLERATED WITHOUT OVERT S/S OF ASPIRATION. PT DID NOT FOLLOW DIRECTIONS, SOFT AND BREATHY VOICE, MUMBLING. PT WITH NC(2L). 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 DUE TO PT HAS H/O CVA, DEMENTIA, SCHIZOPHRENIA, PT HAS RISK FOR SILENT ASPIRATION. RECOMMENDATIONS: 1. DUE TO PT IS LETHARGIC AND REQUIRED VERBAL INSTRUCTION TO KEEP HER AWAKE, KEEP PT NPO FOR NOW. 2. VIDEOSWALLOW STUDY WHEN PT IS MORE ALERT. 3. CONSIDER TEMPORARILY NONORAL FEEDING MEANS IF NEEDED D/W ANN RUEDA AND SPOKE TO DR. DIXON BOWER RE:PT'S CONDITIONS. PER PUSHPA BOWER FOR VIDEOSWALLOW STUDY. WILL FOLLOW UP. POSTED NPO SIGN.
--- NOTE | 2018-07-14 14:12 | NUR ---
NURSE NOTES: Patient mouth care done. HOB elevated to prevent aspiration.Kept clean and dry. Will continue to monitor.
--- NOTE | 2018-07-14 14:23 | General Progress Note ---
Assessment/Plan Problem List: (1) Dehydration ICD Codes: E86.0 - Dehydration SNOMED: 21645864 (2) Hyperglycemia ICD Codes: R73.9 - Hyperglycemia, unspecified SNOMED: 59746660 (3) Hypernatremia ICD Codes: E87.0 - Hyperosmolality and hypernatremia SNOMED: 58389367 (4) Altered mental status ICD Codes: R41.82 - Altered mental status, unspecified SNOMED: 800476979 (5) DKA, type 1 ICD Codes: E10.10 - Type 1 diabetes mellitus with ketoacidosis without coma SNOMED: 65248140, 055500057 (6) Acute metabolic encephalopathy ICD Codes: G93.41 - Metabolic encephalopathy SNOMED: 22981237, 701677634 Status: unchanged Assessment/Plan bs control pt diet neph f/u cbc bmp am ltach eval Subjective Constitutional: Reports: weakness Allergies: Coded Allergies: No Known Allergies (Unverified , 07/13/18) All Systems: reviewed and negative except above Subjective o2nc confused in icu Objective Last 24 Hour Vital Signs Date Time Temp Pulse Resp B/P (MAP) Pulse Ox O2 Delivery O2 Flow Rate FiO2 07/14/18 13:00 115 14 128/56 (80) 99 07/14/18 12:00 116 07/14/18 12:00 98.4 116 12 141/57 (85) 100 07/14/18 12:00 Nasal Cannula 2.0 07/14/18 11:00 120 12 140/55 (83) 99 07/14/18 10:00 122 12 142/47 (78) 99 07/14/18 09:00 115 10 132/45 (74) 99 07/14/18 08:00 Nasal Cannula 2.0 07/14/18 08:00 115 07/14/18 08:00 98.7 104 10 133/46 (75) 99 07/14/18 07:00 108 19 136/63 (87) 100 07/14/18 06:00 105 19 121/49 (73) 100 07/14/18 05:00 97 16 100/37 (58) 100 07/14/18 04:00 Nasal Cannula 2.0 07/14/18 04:00 97.2 104 18 117/55 (75) 100 07/14/18 03:00 105 17 115/55 (75) 100 07/14/18 02:00 103 16 123/58 (79) 100 07/14/18 01:00 97.6 105 16 107/59 (75) 100 07/14/18 00:25 88 07/14/18 00:23 Nasal Cannula 2.0 07/14/18 00:00 87 16 105/77 (86) 100 07/13/18 23:00 90 16 115/64 (81) 100 07/13/18 22:00 88 16 118/54 (75) 100 07/13/18 21:00 84 18 116/47 (70) 100 07/13/18 20:00 Nasal Cannula 2.0 07/13/18 20:00 97.2 95 18 124/47 (72) 100 07/13/18 20:00 95 07/13/18 19:00 84 16 107/50 (69) 100 07/13/18 18:00 87 16 103/43 (63) 100 07/13/18 17:00 95 16 110/62 (78) 100 07/13/18 16:00 Nasal Cannula 2.0 07/13/18 16:00 98 07/13/18 16:00 97.9 98 16 98/51 (67) 100 07/13/18 15:00 98 16 122/62 (82) 100 Intake and Output 07/13/18 07/14/18 19:00 07:00 Intake Total 1450 ml 1541.5 ml Output Total 61 ml 485 ml Balance 1389 ml 1056.5 ml Intake IV Total 1450 ml 1541.5 ml Output Urine Total 61 ml 485 ml # Voids 1 Laboratory Tests 07/13/18 15:57: Sodium Level 172#*H, Potassium Level 2.6*L, Chloride Level 134H, Carbon Dioxide Level 24, Anion Gap 13, Blood Urea Nitrogen 50H, Creatinine 1.1, Estimat Glomerular Filtration Rate , Glucose Level 77#, Calcium Level 8.3#L, C-Reactive Protein, Quantitative 18.0H 07/13/18 18:00: Urine Random Sodium < 20L 07/14/18 04:50: Sodium Level 164*H, Potassium Level 4.0#, Chloride Level 128H, Carbon Dioxide Level 23, Anion Gap 13, Blood Urea Nitrogen 40H, Creatinine 1.1, Estimat Glomerular Filtration Rate , Glucose Level 153H, Calcium Level 8.8, White Blood Count 14.9H, Red Blood Count 3.99L, Hemoglobin 10.7L, Hematocrit 34.0L, Mean Corpuscular Volume 85, Mean Corpuscular Hemoglobin 26.9L, Mean Corpuscular Hemoglobin Concent 31.6L, Red Cell Distribution Width 12.7, Platelet Count 248, Mean Platelet Volume 7.8, Neutrophils (%) (Auto) 79.1H, Lymphocytes (%) (Auto) 14.5L, Monocytes (%) (Auto) 5.6, Eosinophils (%) (Auto) 0.4, Basophils (%) (Auto ) 0.4, Prothrombin Time 11.6H, Prothromb Time International Ratio 1.1, Activated Partial Thromboplast Time 33, Hemoglobin A1c 11.1H, Lactic Acid Level 1.80, Uric Acid 6.4, Phosphorus Level 5.2H, Magnesium Level 2.1, Total Bilirubin 0.4, Direct Bilirubin < 0.1, Gamma Glutamyl Transpeptidase 10, Aspartate Amino Transf (AST/SGOT) 119H, Alanine Aminotransferase (ALT/SGPT) 38, Alkaline Phosphatase 30L, Total Creatine Kinase 3603H, Pro-B-Type Natriuretic Peptide 401H, Total Protein 6.2#L, Albumin 1.9L, Triglycerides Level 78, Cholesterol Level 164, LDL Cholesterol 100, HDL Cholesterol 39L, Cholesterol/ HDL Ratio 4.2, Vitamin B12 Level 1429H, Folate 8.0L, Thyroid Stimulating Hormone (TSH) 0.686 Height (Feet): 5 Height (Inches): 7.00 Weight (Pounds): 123 General Appearance: lethargic, confused EENT: normal ENT inspection Neck: normal alignment Cardiovascular: normal peripheral pulses, normal rate, regular rhythm Respiratory/Chest: chest wall non-tender, lungs clear, normal breath sounds Abdomen: normal bowel sounds, non tender, soft Edema: no edema noted Arm (L), no edema noted Arm (R), no edema noted Leg (L), no edema noted Leg (R), no edema noted Pedal (L), no edema noted Pedal (R), no edema noted Generalized Neurologic: motor weakness Skin: normal pigmentation, warm/dry Dave Dugan DO Jul 14, 2018 14:23
--- NOTE | 2018-07-14 15:15 | Consultation ---
DATE OF CONSULTATION: 07/14/2018 ENDOCRINOLOGY CONSULTATION CONSULTING PHYSICIAN: Shyam Gaona M.D. REFERRING PHYSICIAN: Dave Dugan D.O. REASON FOR CONSULTATION: Hyperglycemia and diabetic ketoacidosis. HISTORY OF PRESENT ILLNESS: The patient is a elderly female, not able to provide any meaningful history. The patient's information obtained from review of medical record and discussed with RN, presented to the hospital with extremely elevated glucose, started on insulin drip and admitted to the ICU with signs of diabetic ketoacidosis; therefore diversity intern was consulted. PAST MEDICAL HISTORY: 1. Diabetes. 2. Dementia. 3. Anxiety disorder. 4. Dysphagia. 5. Depression. 6. Psychotic syndrome. 7. Cataract. 8. Bradycardia. 9. Metabolic encephalopathy. 10. Atherosclerotic heart disease. 11. Schizophrenia. 12. Generalized weakness. 13. Hypertension. ALLERGIES: None. MEDICATIONS: Reviewed and reconciled. SOCIAL HISTORY: [facility] a [facility] facility. REVIEW OF SYSTEMS: Impossible to obtain. PHYSICAL EXAMINATION: GENERAL: Elderly female. VITAL SIGNS: Blood pressure is 132/80, pulse of 80, temperature 98.2. HEENT: Pupils are equal and reactive to light. Sclerae anicteric. NECK: No JVD. HEART: Regular. LUNGS: Clear anteriorly. ABDOMEN: Positive bowel sounds. EXTREMITIES: + edema. LABORATORY VALUES: Sodium 164, potassium 4.0, chloride 128, bicarb 22, BUN 40, creatinine 1.1, anion gap of 15. DIAGNOSES: 1. Diabetic ketoacidosis, resolved. 2. Altered mental status. 3. Hypernatremia DISCUSSION: 1. Hypernatremia managed by Dr. Greenfield. 2. Discontinue insulin drip. 3. Start Levemir 12 units twice a day. 4. Start NovoLog sliding scale every 4 hours. 5. Further adjustment according to her progress. 6. I will follow the patient closely during hospital stay. Thank you, Dr. Dugan, for the courtesy of this consultation. Shyam Gaona M.D. DR: MARYBETH/justin JOB#: [id number] CC: KANA
--- NOTE | 2018-07-14 15:25 | Infectious Diseases Prog Note ---
Assessment/Plan Assessment/Plan Abx: Zosyn 07/13- Assessment: SIRS- ?sepsis vs reactive to hyperglycemia/dehydration- ?UTI -u/a no pyuria; ucx >100k GNR -CXR: Chronic and age-related changes as described, including evidence of old infarcts Negative for acute intracranial bleed or mass effect -07/13 BCx p Afebrile Leukocytosis, stable Lactic acidosis, SP Hyperglycemia Acute on chronic encephalopathy -CT head: Chronic and age-related changes as described, including evidence of old infarcts. Negative for acute intracranial bleed or mass effect Dementia HTN CAD schizophrenia dysphagia NH resident Plan: -Continue empiric Zosyn #2 for now pending cultures -f/u cx -MOnitor CBC/CMP, temperatures Thank you for this consultation. Will continue to follow along with you. Discussed with RN. Subjective Allergies: Coded Allergies: No Known Allergies (Unverified , 07/13/18) Subjective afebrile at 2l NC wbc stable at 14 Objective Vital Signs Last 24 Hour Vital Signs Date Time Temp Pulse Resp B/P (MAP) Pulse Ox O2 Delivery O2 Flow Rate FiO2 07/14/18 15:00 108 12 129/55 (79) 99 07/14/18 14:00 108 12 129/57 (81) 99 07/14/18 13:00 115 14 128/56 (80) 99 07/14/18 12:00 116 07/14/18 12:00 98.4 116 12 141/57 (85) 100 07/14/18 12:00 Nasal Cannula 2.0 07/14/18 11:00 120 12 140/55 (83) 99 07/14/18 10:00 122 12 142/47 (78) 99 07/14/18 09:00 115 10 132/45 (74) 99 07/14/18 08:00 Nasal Cannula 2.0 07/14/18 08:00 115 07/14/18 08:00 98.7 104 10 133/46 (75) 99 07/14/18 07:00 108 19 136/63 (87) 100 07/14/18 06:00 105 19 121/49 (73) 100 07/14/18 05:00 97 16 100/37 (58) 100 07/14/18 04:00 Nasal Cannula 2.0 07/14/18 04:00 97.2 104 18 117/55 (75) 100 07/14/18 03:00 105 17 115/55 (75) 100 07/14/18 02:00 103 16 123/58 (79) 100 07/14/18 01:00 97.6 105 16 107/59 (75) 100 07/14/18 00:25 88 07/14/18 00:23 Nasal Cannula 2.0 07/14/18 00:00 87 16 105/77 (86) 100 07/13/18 23:00 90 16 115/64 (81) 100 07/13/18 22:00 88 16 118/54 (75) 100 07/13/18 21:00 84 18 116/47 (70) 100 07/13/18 20:00 Nasal Cannula 2.0 07/13/18 20:00 97.2 95 18 124/47 (72) 100 07/13/18 20:00 95 07/13/18 19:00 84 16 107/50 (69) 100 07/13/18 18:00 87 16 103/43 (63) 100 07/13/18 17:00 95 16 110/62 (78) 100 07/13/18 16:00 Nasal Cannula 2.0 07/13/18 16:00 98 07/13/18 16:00 97.9 98 16 98/51 (67) 100 Height (Feet): 5 Height (Inches): 7.00 Weight (Pounds): 123 Objective General Appearance: mild distress, thin, other - Staring off into space. Appears ill. unable to answer questions., Chronically Ill HEENT: atraumatic, dry mucus membranes Neck: normal inspection, supple, no bony tend Respiratory: normal inspection, lungs clear, normal breath sounds, no respiratory distress, no retraction, no wheezing Cardiovascular regular rate, rhythm, no edema Gastrointestinal: soft, decreased bowel sounds Musculoskeletal: normal inspection, back normal Neurologic: other - Unable to full assess, appears generally confused Skin: warm/dry Microbiology Date/Time Source Procedure Growth Status 07/13/18 10:10 Urine,Clean Catch Urine Culture - Preliminary Gram Negative Bacillus 1 Resulted 07/13/18 12:05 Rectum Received Laboratory Tests Test 07/13/18 15:57 07/13/18 18:00 07/14/18 04:50 Sodium Level 172 MMOL/L (136-145) #*H 164 MMOL/L (136-145) *H Potassium Level 2.6 MMOL/L (3.5-5.1) *L 4.0 MMOL/L (3.5-5.1) # Chloride Level 134 MMOL/L (98-107) H 128 MMOL/L (98-107) H Carbon Dioxide Level 24 MMOL/L (21-32) 23 MMOL/L (21-32) Anion Gap 13 mmol/L (5-15) 13 mmol/L (5-15) Blood Urea Nitrogen 50 mg/dL (7-18) H 40 mg/dL (7-18) H Creatinine 1.1 MG/DL (0.55-1.30) 1.1 MG/DL (0.55-1.30) Estimat Glomerular Filtration Rate mL/min (>60) mL/min (>60) Glucose Level 77 MG/DL (74-106) # 153 MG/DL (74-106) H Calcium Level 8.3 MG/DL (8.5-10.1) #L 8.8 MG/DL (8.5-10.1) C-Reactive Protein, Quantitative 18.0 mg/dL (0.00-0.90) H 15.0 mg/dL (0.00-0.90) H Urine Random Sodium < 20 mmol/L (20-110) L White Blood Count 14.9 K/UL (4.8-10.8) H Red Blood Count 3.99 M/UL (4.20-5.40) L Hemoglobin 10.7 G/DL (12.0-16.0) L Hematocrit 34.0 % (37.0-47.0) L Mean Corpuscular Volume 85 FL (80-99) Mean Corpuscular Hemoglobin 26.9 PG (27.0-31.0) L Mean Corpuscular Hemoglobin Concent 31.6 G/DL (32.0-36.0) L Red Cell Distribution Width 12.7 % (11.6-14.8) Platelet Count 248 K/UL (150-450) Mean Platelet Volume 7.8 FL (6.5-10.1) Neutrophils (%) (Auto) 79.1 % (45.0-75.0) H Lymphocytes (%) (Auto) 14.5 % (20.0-45.0) L Monocytes (%) (Auto) 5.6 % (1.0-10.0) Eosinophils (%) (Auto) 0.4 % (0.0-3.0) Basophils (%) (Auto) 0.4 % (0.0-2.0) Prothrombin Time 11.6 SEC (9.30-11.50) H Prothromb Time International Ratio 1.1 (0.9-1.1) Activated Partial Thromboplast Time 33 SEC (23-33) Hemoglobin A1c 11.1 % (4.3-6.0) H Lactic Acid Level 1.80 mmol/L (0.4-2.0) Uric Acid 6.4 MG/DL (2.6-7.2) Phosphorus Level 5.2 MG/DL (2.5-4.9) H Magnesium Level 2.1 MG/DL (1.8-2.4) Total Bilirubin 0.4 MG/DL (0.2-1.0) Direct Bilirubin < 0.1 MG/DL (0.0-0.3) Gamma Glutamyl Transpeptidase 10 U/L (5-85) Aspartate Amino Transf (AST/SGOT) 119 U/L (15-37) H Alanine Aminotransferase (ALT/SGPT) 38 U/L (12-78) Alkaline Phosphatase 30 U/L (46-116) L Total Creatine Kinase 3603 U/L (26-308) H Pro-B-Type Natriuretic Peptide 401 pg/mL (0-125) H Total Protein 6.2 G/DL (6.4-8.2) #L Albumin 1.9 G/DL (3.4-5.0) L Triglycerides Level 78 MG/DL (30-150) Cholesterol Level 164 MG/DL (< 200) LDL Cholesterol 100 mg/dL (<100) HDL Cholesterol 39 MG/DL (40-60) L Cholesterol/HDL Ratio 4.2 (3.3-4.4) Vitamin B12 Level 1429 PG/ML (193-986) H Folate 8.0 NG/ML (8.6-58.9) L Thyroid Stimulating Hormone (TSH) 0.686 uiU/mL (0.358-3.740) Current Medications Medications (Trade) Dose Ordered Sig/Elizabeth Route PRN Reason Start Time Stop Time Status Last Admin Dose Admin Acetaminophen (Tylenol) 650 mg Q4H PRN ORAL Fever 07/13/18 11:30 08/12/18 11:29 Albuterol/ Ipratropium (Albuterol/ Ipratropium) 3 ml Q4H PRN HHN Shortness of Breath 07/13/18 11:30 07/18/18 11:29 Dextrose 1,000 ml @ 75 mls/hr [id number] IV 07/14/18 12:00 08/13/18 11:59 07/14/18 12:33 Dextrose (Dextrose 50%) 25 ml Q30M PRN IV Hypoglycemia 07/14/18 06:45 08/13/18 06:44 Dextrose (Dextrose 50%) 50 ml Q30M PRN IV Hypoglycemia 07/14/18 06:45 08/13/18 06:44 Escitalopram Oxalate (Lexapro) 5 mg DAILY ORAL 07/14/18 09:00 08/13/18 08:59 07/14/18 09:41 Heparin Sodium (Porcine) (Heparin 5000 units/ml) 5,000 units EVERY 12 HOURS SUBQ 07/13/18 21:00 08/12/18 20:59 07/14/18 09:42 Insulin Aspart (NovoLOG) Q4HR SUBQ 07/14/18 09:00 08/13/18 08:59 07/14/18 12:31 Insulin Detemir (Levemir) 12 units BID SUBQ 07/14/18 09:00 08/13/18 08:59 07/14/18 09:57 Lorazepam (Ativan 2mg/ml 1ml) 2 mg Q2H PRN IV agitation 07/13/18 11:30 07/20/18 11:29 Morphine Sulfate (Morphine Sulfate) 4 mg Q4H PRN IVP Severe Pain (Pain Scale 7-10) 07/13/18 11:30 07/20/18 11:29 Nitroglycerin (Ntg) 0.4 mg Q5M PRN SL Prn Chest Pain 07/13/18 11:30 08/12/18 11:29 Ondansetron HCl (Zofran) 4 mg Q6H PRN IVP Nausea & Vomiting 07/13/18 11:30 08/12/18 11:29 Pantoprazole (Protonix) 40 mg EVERY 12 HOURS IVP 07/13/18 21:00 08/12/18 20:59 07/14/18 09:40 Piperacillin Sod/ Tazobactam Sod 3.375 gm/Sodium Chloride 110 ml @ 27.5 mls/hr EVERY 8 HOURS IVPB 07/13/18 14:00 07/18/18 13:59 07/14/18 14:31 Polyethylene Glycol (Miralax) 17 gm DAILYPRN PRN ORAL Constipation 07/13/18 11:30 08/12/18 11:29 Maricarmen Weiss M.D. Jul 14, 2018 15:25
--- NOTE | 2018-07-14 16:00 | NUR ---
NURSE NOTES: Adls done, kept clean and dry. Turned and repositioned.Will continue to monitor.
--- NOTE | 2018-07-14 17:04 | Cardiology Report ---
APPROVED REPORT EKG Measurement Heart [id number] Sinus tachycardia Otherwise normal ECG
--- NOTE | 2018-07-14 18:00 | NUR ---
NURSE NOTES: Patient Adls done, mouth care done.Ready for transfer to tele 207-1. Seen by Dr Weiss will follow up with new orders. Kept clean ,dry and comfortable.
[2018-07-14] MEDS ORDERED: Albuterol/Ipratropium 3ml neb HHN PRN (18:44)
[2018-07-14] MEDS ORDERED: LORazepam Inj 2mg/ml 1ml IV PRN (18:44)
[2018-07-14] MEDS ORDERED: Morphine Sulfate 4mg/ml Inj (IV USE ONLY) IVP PRN (18:44)
[2018-07-14] MEDS ORDERED: Miralax 17gm pkt ORAL PRN (18:45)
[2018-07-14] MEDS ORDERED: Nitroglycerin Subl 0.4mg tab SL PRN (18:45)
--- NOTE | 2018-07-14 19:00 | NUR ---
HAND-OFF: Report given to MARYBETH Bashir.Report given to KrystenRN
--- NOTE | 2018-07-14 19:10 | NUR ---
NURSE NOTES: Report received from MARYBETH Moctezuma. Patient AOx1. IV L hand 22g patent. Patient has FC, intact and draining. Patient doesn't have any belongings. Bed on lowest position, side rails upx2, brakes engaged. Call light within easy reach.
--- NOTE | 2018-07-14 19:15 | NUR ---
NURSE NOTES: Received report from Daniella Padron, RN and Andra Velasquez RN. Pt is resting in the bed w/o distress in RA, no pain at all at this time. Safety measures are applied with bed alarm on, bed in lowest position, side rails up x2, and breaks are engaged. Call light and side table are within reach. SR in the monitor. IV is at LH 22G, asymptomatic. Marshall cath. is applied, draining and patent. Will follow plans of care.
--- NOTE | 2018-07-14 19:30 | NUR ---
HAND-OFF: Report given to SONJA RUEDA. PT IN STABLE CONDITION.
[2018-07-14] MEDS: Piperacillin/Tazobactam 3.375 GM in NS 110 ML IVPB SCH (21:29)
--- NOTE | 2018-07-14 22:58 | NUR ---
NURSE NOTES: Called pharmacy for Insulin pen 3 times at 2030, at 2130, at 2220. Novolog is ready now in the med room. Will be administer it now.
[2018-07-15] VITALS: BP 120/57
[2018-07-15] MEDS: NovoLOG Insulin Flexpen SUBQ SCH ×5 (00:48→21:52)
--- NOTE | 2018-07-15 01:30 | NUR ---
NURSE NOTES: Pt was resting in the bed w/o distress in RA. Will continue to monitor.
[2018-07-15 04:00] VITALS: BP_SYST 127; BP_SYST 138; BP_DIAS 61; BP_DIAS 73
[2018-07-15] MEDS: Piperacillin/Tazobactam 3.375 GM in NS 110 ML IVPB SCH ×3 (06:00→21:54)
--- NOTE | 2018-07-15 06:27 | General Progress Note ---
Assessment/Plan Problem List: (1) History of CVA (cerebrovascular accident) ICD Codes: Z86.73 - Personal history of transient ischemic attack (TIA), and cerebral infarction without residual deficits SNOMED: 940644664 (2) Hyperosmolar coma ICD Codes: E11.01 - Type 2 diabetes mellitus with hyperosmolarity with coma SNOMED: 85374846, 062732638 (3) Alzheimer's dementia ICD Codes: G30.9 - Alzheimer's disease, unspecified; F02.80 - Dementia in other diseases classified elsewhere without behavioral disturbance SNOMED: 26627799 (4) Altered mental status ICD Codes: R41.82 - Altered mental status, unspecified SNOMED: 474524102 (5) Hyperglycemia ICD Codes: R73.9 - Hyperglycemia, unspecified SNOMED: 14849626 Assessment/Plan change Levemir to 16 units qhs add Starlix 120 mg ac tid continue NISS ac / hs Subjective ROS Limited/Unobtainable: Yes Allergies: Coded Allergies: No Known Allergies (Unverified , 07/13/18) Subjective events noted transferred out of ICU glucose low this morning Item Value Date Time Bedside Blood Glucose 63 mg/dl L 07/15/18 0500 Bedside Blood Glucose 115 mg/dl 07/15/18 0048 Bedside Blood Glucose 128 mg/dl H 07/14/18 2100 Bedside Blood Glucose 149 mg/dl H 07/14/18 1712 Bedside Blood Glucose 214 mg/dl H 07/14/18 1231 Bedside Blood Glucose 182 mg/dl H 07/14/18 0958 Objective Last 24 Hour Vital Signs Date Time Temp Pulse Resp B/P (MAP) Pulse Ox O2 Delivery O2 Flow Rate FiO2 07/15/18 00:00 97.7 94 18 120/57 (78) 98 07/14/18 23:24 96 07/14/18 21:00 Room Air 07/14/18 20:35 96 16 Nasal Cannula 2.0 28 07/14/18 20:35 Nasal Cannula 2.0 28 07/14/18 20:35 99 Nasal Cannula 2.0 28 07/14/18 20:00 97.9 98 18 122/60 (80) 97 07/14/18 19:36 98 07/14/18 18:00 95 12 116/53 (74) 99 07/14/18 17:00 96 12 127/55 (79) 99 07/14/18 16:00 106 07/14/18 16:00 Nasal Cannula 2.0 07/14/18 16:00 98.2 105 12 125/46 (72) 100 07/14/18 15:00 108 12 129/55 (79) 99 07/14/18 14:00 108 12 129/57 (81) 99 07/14/18 13:00 115 14 128/56 (80) 99 07/14/18 12:00 116 07/14/18 12:00 98.4 116 12 141/57 (85) 100 07/14/18 12:00 Nasal Cannula 2.0 07/14/18 11:00 120 12 140/55 (83) 99 07/14/18 10:00 122 12 142/47 (78) 99 07/14/18 09:00 115 10 132/45 (74) 99 07/14/18 08:00 Nasal Cannula 2.0 07/14/18 08:00 115 07/14/18 08:00 98.7 104 10 133/46 (75) 99 07/14/18 07:00 108 19 136/63 (87) 100 07/14/18 06:32 100 Nasal Cannula 2.0 28 07/14/18 06:32 Nasal Cannula 2.0 28 07/14/18 06:32 108 14 Nasal Cannula 2.0 28 Intake and Output 07/14/18 07/15/18 19:00 07:00 Intake Total 891.25 ml Output Total 485 ml Balance 406.25 ml Intake IV Total 891.25 ml Output Urine Total 485 ml Height (Feet): 5 Height (Inches): 7.00 Weight (Pounds): 123 General Appearance: no apparent distress Neck: normal alignment Cardiovascular: normal rate Respiratory/Chest: lungs clear Abdomen: normal bowel sounds Edema: no edema noted Arm (L), no edema noted Arm (R), no edema noted Leg (L), no edema noted Leg (R), no edema noted Pedal (L), no edema noted Pedal (R), no edema noted Generalized Objective Current Medications Medications (Trade) Dose Ordered Sig/Elizabeth Route PRN Reason Start Time Stop Time Status Last Admin Dose Admin Acetaminophen (Tylenol) 650 mg Q4H PRN ORAL Fever 07/14/18 18:43 08/12/18 18:42 Albuterol/ Ipratropium (Albuterol/ Ipratropium) 3 ml Q4H PRN HHN Shortness of Breath 07/14/18 18:44 07/18/18 18:43 Dextrose 1,000 ml @ 75 mls/hr [id number] IV 07/14/18 18:43 08/13/18 18:42 07/14/18 19:33 Dextrose (Dextrose 50%) 25 ml Q30M PRN IV Hypoglycemia 07/14/18 18:45 08/13/18 06:44 Dextrose (Dextrose 50%) 50 ml Q30M PRN IV Hypoglycemia 07/14/18 18:45 08/13/18 06:44 Escitalopram Oxalate (Lexapro) 5 mg DAILY ORAL 07/15/18 09:00 08/13/18 08:59 Heparin Sodium (Porcine) (Heparin 5000 units/ml) 5,000 units EVERY 12 HOURS SUBQ 07/14/18 21:00 08/12/18 20:59 07/14/18 21:21 Insulin Aspart (NovoLOG) Q4HR SUBQ 07/14/18 21:00 08/13/18 08:59 07/15/18 00:48 Insulin Detemir (Levemir) 12 units BID SUBQ 07/15/18 09:00 08/13/18 08:59 Lorazepam (Ativan 2mg/ml 1ml) 2 mg Q2H PRN IV agitation 07/14/18 18:44 07/21/18 18:43 Morphine Sulfate (Morphine Sulfate) 4 mg Q4H PRN IVP Severe Pain (Pain Scale 7-10) 07/14/18 18:44 07/21/18 18:43 Nitroglycerin (Ntg) 0.4 mg Q5M PRN SL Prn Chest Pain 07/14/18 18:45 08/12/18 11:29 Ondansetron HCl (Zofran) 4 mg Q6H PRN IVP Nausea & Vomiting 07/14/18 18:44 08/12/18 18:43 Pantoprazole (Protonix) 40 mg EVERY 12 HOURS IVP 07/14/18 21:00 08/12/18 20:59 07/14/18 21:20 Piperacillin Sod/ Tazobactam Sod 3.375 gm/Sodium Chloride 110 ml @ 27.5 mls/hr EVERY 8 HOURS IVPB 07/14/18 22:00 07/18/18 13:59 07/14/18 21:29 Polyethylene Glycol (Miralax) 17 gm DAILYPRN PRN ORAL Constipation 07/14/18 18:45 08/13/18 18:44 Shyam Gaona MD Jul 15, 2018 06:27
--- NOTE | 2018-07-15 06:40 | General Progress Note ---
Assessment/Plan Problem List: (1) Dehydration ICD Codes: E86.0 - Dehydration SNOMED: 45700952 (2) Hyperglycemia ICD Codes: R73.9 - Hyperglycemia, unspecified SNOMED: 22529407 (3) Hypernatremia ICD Codes: E87.0 - Hyperosmolality and hypernatremia SNOMED: 45314116 (4) Altered mental status ICD Codes: R41.82 - Altered mental status, unspecified SNOMED: 559157720 (5) DKA, type 1 ICD Codes: E10.10 - Type 1 diabetes mellitus with ketoacidosis without coma SNOMED: 14730382, 041524297 (6) Acute metabolic encephalopathy ICD Codes: G93.41 - Metabolic encephalopathy SNOMED: 21581916, 038187661 Status: stable, progressing Assessment/Plan bs control pt diet neph f/u cbc bmp am ltach transfer Subjective Constitutional: Reports: weakness Allergies: Coded Allergies: No Known Allergies (Unverified , 07/13/18) All Systems: reviewed and negative except above Subjective sleepy calm Objective Last 24 Hour Vital Signs Date Time Temp Pulse Resp B/P (MAP) Pulse Ox O2 Delivery O2 Flow Rate FiO2 07/15/18 00:00 97.7 94 18 120/57 (78) 98 07/14/18 23:24 96 07/14/18 21:00 Room Air 07/14/18 20:35 96 16 Nasal Cannula 2.0 28 07/14/18 20:35 Nasal Cannula 2.0 28 07/14/18 20:35 99 Nasal Cannula 2.0 28 07/14/18 20:00 97.9 98 18 122/60 (80) 97 07/14/18 19:36 98 07/14/18 18:00 95 12 116/53 (74) 99 07/14/18 17:00 96 12 127/55 (79) 99 07/14/18 16:00 106 07/14/18 16:00 Nasal Cannula 2.0 07/14/18 16:00 98.2 105 12 125/46 (72) 100 07/14/18 15:00 108 12 129/55 (79) 99 07/14/18 14:00 108 12 129/57 (81) 99 07/14/18 13:00 115 14 128/56 (80) 99 07/14/18 12:00 116 07/14/18 12:00 98.4 116 12 141/57 (85) 100 07/14/18 12:00 Nasal Cannula 2.0 07/14/18 11:00 120 12 140/55 (83) 99 07/14/18 10:00 122 12 142/47 (78) 99 07/14/18 09:00 115 10 132/45 (74) 99 07/14/18 08:00 Nasal Cannula 2.0 07/14/18 08:00 115 07/14/18 08:00 98.7 104 10 133/46 (75) 99 07/14/18 07:00 108 19 136/63 (87) 100 Intake and Output 07/14/18 07/15/18 19:00 07:00 Intake Total 891.25 ml Output Total 485 ml Balance 406.25 ml Intake IV Total 891.25 ml Output Urine Total 485 ml Height (Feet): 5 Height (Inches): 7.00 Weight (Pounds): 123 General Appearance: lethargic EENT: normal ENT inspection Neck: normal alignment Cardiovascular: normal peripheral pulses, normal rate, regular rhythm Respiratory/Chest: chest wall non-tender, lungs clear, normal breath sounds Abdomen: normal bowel sounds, non tender, soft Extremities: normal inspection Edema: no edema noted Arm (L), no edema noted Arm (R), no edema noted Leg (L), no edema noted Leg (R), no edema noted Pedal (L), no edema noted Pedal (R), no edema noted Generalized Neurologic: motor weakness Skin: normal pigmentation, warm/dry Dave Dugan DO Jul 15, 2018 06:40
--- NOTE | 2018-07-15 07:05 | NUR ---
HAND-OFF: Report given to Heladio Glover RN. Stable condition.
[2018-07-15 07:22] LABS: BASOPHILS % (AUTO) 0.4 % (0.0-2.0); EOSINOPHILS % (AUTO) 0.6 % (0.0-3.0); HEMATOCRIT 34.2 % (37.0-47.0); HEMOGLOBIN 10.9 G/DL (12.0-16.0); LYMPHOCYTES % (AUTO) 19.1 % (20.0-45.0); MEAN CORPUSCULAR VOLUME 85 FL (80-99); NEUTROPHILS % (AUTO) 73.9 % (45.0-75.0); PLATELET COUNT 195 K/UL (150-450); RED BLOOD COUNT 4.04 M/UL (4.20-5.40); RED CELL DISTRIBUTION WIDTH 12.5 % (11.6-14.8)
[2018-07-15 07:31] LABS: % IRON SATURATION 52 % (15-50); IRON 48 ug/dL (50-175); TOTAL IRON BINDING CAPACITY 92 ug/dL (250-450)
[2018-07-15 08:00] VITALS: BP 121/53
[2018-07-15 08:01] LABS: ALANINE AMINOTRANSFERASE 45 U/L (12-78); ALBUMIN/GLOBULIN RATIO 0.4 (1.0-2.7); ALKALINE PHOSPHATASE 29 U/L (46-116); ANION GAP 10 mmol/L (5-15); ASPARTATE AMINO TRANSFERASE 139 U/L (15-37); BILIRUBIN,TOTAL 0.4 MG/DL (0.2-1.0); BLOOD UREA NITROGEN 19 mg/dL (7-18); CALCIUM 8.5 MG/DL (8.5-10.1); CARBON DIOXIDE 27 MMOL/L (21-32); CHLORIDE 122 MMOL/L (98-107); PHOSPHORUS 3.3 MG/DL (2.5-4.9); POTASSIUM 3.2 MMOL/L (3.5-5.1); SODIUM 159 MMOL/L (136-145)
--- NOTE | 2018-07-15 08:13 | NUR ---
NURSE NOTES: Pt in bed low position, HOb in semi fowlers, pt is verbal but makes no sense, dysphagia present, evaluation for swallow will be done today, IV on left forearm seems infiltrated will continue to monitor, Ox1 name only but only looks at you and may verbalized a sound, pt is bed bound and will need to be turned Q2hrs, vasquez placed in ED for retention, pt has a discharge order but clearance needs to be by ID. no s/s of distress or sob noted.
[2018-07-15 08:32] LABS: FERRITIN > 2000 NG/ML (8-388)
[2018-07-15] MEDS ORDERED: Levemir Flexpen SUBQ SCH ×2 (09:00→21:00)
[2018-07-15] MEDS: Pantoprazole Inj IVP SCH ×2 (10:09→21:50)
[2018-07-15] MEDS: Heparin 5000 units/ml inj SUBQ SCH ×2 (10:10→21:50)
--- NOTE | 2018-07-15 10:13 | NUR ---
Social Service Note Patient is a resident of [facility] 12/2017. faxed referral to [facility], (f) [phone] (p). Patient continues to require medical intervention. Patient is a full code and will continue to require prison placement upon discharge. Will monitor and follow up as needed.
--- NOTE | 2018-07-15 10:41 | NUR ---
ST NOTE: VIDEOSWALLOW STUDY COMPLETED VIDEOSWALLOW STUDY FULL REPORT WILL FOLLOW IN ST NOTE UNDER CARE ACTIVITY PT AWAKE, COOPERATIVE, CONFUSED, DID NOT FOLLOW DIRECTIONS EVEN GIVEN MAX CUES GIVEN PO TRIALS: THIN(TSPX2/STRAW-SEQUENTIAL), NECTAR THICK(TSP/MED CUP/STRAW-SEQUENTIAL), HONEY THICK(TSP) WITH H2O LIQUID WASH X 3, PUDDING(TSP) WITH H2O LIQUID WASH. IMPRESSION: PT PRESENTS WITH MODERATELY SEVERE OROPHARYNGEAL DYSPHAGIA CHARACTERIZED BY PROLONG ORAL TRANSIT TIME WITH HONEY THICK AND PUDDING(PT HELD THE BOLUS IN MOUTH), AND INCREASED OROPHARYNGEAL TRANSIT TIME DUE TO SENSORIMOTOR DEFICITS AND ORAL APRAXIA. MILD TO MODERATE TONGUE BASE AND VALLECULAR RESIDUE WAS NOTED DUE TO REDUCED TONGUE BASE RETRACTION; AND MILD PHARYNGEAL RESIDUE IN PYRIFORM SINUSES DUE TO REDUCED LARYNGEAL ELEVATION. MILD ESOPHAGEAL DYSPHAGIA CHARACTERIZED BY ESOPHAGEAL RETENTION WITH RETROGRADE WITH FLOW THROUGH PHARYNGO-ESOPHAGEAL SEGMENT(PES). NO SIGNIFICANT ASPIRATION WITH ALL CONSISTENCIES WAS NOTED BUT HAS HIGH RISK SECONDARY TO PT IS COGNITIVELY IMPAIRED. LIMITED SWALLOW TECHNIQUES WERE ABLE TO USE DUE TO PT IS COGNITIVELY IMPAIRED. RECOMMENDATIONS: 1. CONSERVATIVELY, LONG-TERM NONORAL FEEDING MEANS SHOULD BE CONSIDERED TO MEET NUTRITION AND HYDRATION NEEDS. 2. IF PO IS GIVEN FOR QUALITY OF LIFE, DIET IS RECOMMENDED LIQUIFIED PUREED, LIKE NECTAR THICK SOUP CONSISTENCY WITH NECTAR THICK LIQUIDS 3. STRICT ASPIRATION/REFLUX PRECAUTIONS WITH 1TO1 FEEDING D/W JOELLEN RUEDA. WILL DISCUSSED WITH MD FOR THE PLAN. HOLD PO DIET FOR NOW. Addendum: 07/15/18 at 1043 by [employer] 4. CONSIDER COMFORT MEASURE IF PO IS GIVEN.
--- NOTE | 2018-07-15 11:15 | Pulmonology Progress Note ---
Assessment/Plan Problems: (1) Acute metabolic encephalopathy (2) Hyperosmolar coma (3) Diabetes mellitus (4) Alzheimer's dementia (5) History of CVA (cerebrovascular accident) Assessment/Plan improving more awake Na lower K supplement swallow evaluation pt/ot check electrolytes dvt prophylaxis. Subjective Interval Events: more awake Allergies: Coded Allergies: No Known Allergies (Unverified , 07/13/18) Objective Last 24 Hour Vital Signs Date Time Temp Pulse Resp B/P (MAP) Pulse Ox O2 Delivery O2 Flow Rate FiO2 07/15/18 08:39 Room Air 07/15/18 08:00 98.2 92 20 121/53 (75) 100 07/15/18 07:45 Room Air 21 07/15/18 07:44 92 16 Room Air 21 07/15/18 07:44 92 07/15/18 07:44 98 Room Air 21 07/15/18 04:00 98.4 100 18 127/61 (83) 100 07/15/18 03:20 97 07/15/18 00:00 97.7 94 18 120/57 (78) 98 07/14/18 23:24 96 07/14/18 21:00 Room Air 07/14/18 20:35 96 16 Nasal Cannula 2.0 28 07/14/18 20:35 Nasal Cannula 2.0 28 07/14/18 20:35 99 Nasal Cannula 2.0 28 07/14/18 20:00 97.9 98 18 122/60 (80) 97 07/14/18 19:36 98 07/14/18 18:00 95 12 116/53 (74) 99 07/14/18 17:00 96 12 127/55 (79) 99 07/14/18 16:00 106 07/14/18 16:00 Nasal Cannula 2.0 07/14/18 16:00 98.2 105 12 125/46 (72) 100 07/14/18 15:00 108 12 129/55 (79) 99 07/14/18 14:00 108 12 129/57 (81) 99 07/14/18 13:00 115 14 128/56 (80) 99 07/14/18 12:00 116 07/14/18 12:00 98.4 116 12 141/57 (85) 100 07/14/18 12:00 Nasal Cannula 2.0 Intake and Output 07/14/18 07/15/18 19:00 07:00 Intake Total 891.25 ml Output Total 485 ml 350 ml Balance 406.25 ml -350 ml Intake IV Total 891.25 ml Output Urine Total 485 ml 350 ml General Appearance: WD/WN HEENT: normocephalic, atraumatic Respiratory/Chest: chest wall non-tender, lungs clear Breasts: no masses Cardiovascular: normal peripheral pulses Abdomen: normal bowel sounds, soft, non tender Genitourinary: normal external genitalia Skin: no rash Neurologic/Psychiatric: lag 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 Complete 07/13/18 12:05 Rectum Received Laboratory Tests 07/15/18 06:06: White Blood Count 9.0, Red Blood Count 4.04L, Hemoglobin 10.9L, Hematocrit 34.2L , Mean Corpuscular Volume 85, Mean Corpuscular Hemoglobin 26.9L, Mean Corpuscular Hemoglobin Concent 31.7L, Red Cell Distribution Width 12.5, Platelet Count 195, Mean Platelet Volume 7.6, Neutrophils (%) (Auto) 73.9, Lymphocytes (%) (Auto) 19.1L, Monocytes (%) (Auto) 6.0, Eosinophils (%) (Auto) 0.6, Basophils (%) (Auto) 0.4, Erythrocyte Sedimentation Rate 102H, Sodium Level 159H, Potassium Level 3.2L, Chloride Level 122H, Carbon Dioxide Level 27, Anion Gap 10, Blood Urea Nitrogen 19H, Creatinine 1.0, Estimat Glomerular Filtration Rate , Glucose Level 59L, Calcium Level 8.5, Phosphorus Level 3.3, Magnesium Level 2.1, Iron Level 48L, Total Iron Binding Capacity 92L, Percent Iron Saturation 52H, Unsaturated Iron Binding 44L, Ferritin > 2000H, Total Bilirubin 0.4, Aspartate Amino Transf (AST/SGOT) 139H, Alanine Aminotransferase (ALT/SGPT) 45, Alkaline Phosphatase 29L, C-Reactive Protein, Quantitative 9.0H, Pro-B-Type Natriuretic Peptide 403H, Total Protein 6.5, Albumin 2.0L, Globulin 4.5, Albumin/Globulin Ratio 0.4L Current Medications Medications (Trade) Dose Ordered Sig/Elizabeth Route PRN Reason Start Time Stop Time Status Last Admin Dose Admin Acetaminophen (Tylenol) 650 mg Q4H PRN ORAL Fever 07/14/18 18:43 08/12/18 18:42 Albuterol/ Ipratropium (Albuterol/ Ipratropium) 3 ml Q4H PRN HHN Shortness of Breath 07/14/18 18:44 07/18/18 18:43 Dextrose 1,000 ml @ 75 mls/hr [id number] IV 07/14/18 18:43 08/13/18 18:42 07/15/18 06:40 Dextrose (Dextrose 50%) 25 ml Q30M PRN IV Hypoglycemia 07/14/18 18:45 08/13/18 06:44 Dextrose (Dextrose 50%) 50 ml Q30M PRN IV Hypoglycemia 07/14/18 18:45 08/13/18 06:44 Escitalopram Oxalate (Lexapro) 5 mg DAILY ORAL 07/15/18 09:00 08/13/18 08:59 07/15/18 10:09 Heparin Sodium (Porcine) (Heparin 5000 units/ml) 5,000 units EVERY 12 HOURS SUBQ 07/14/18 21:00 08/12/18 20:59 07/15/18 10:10 Insulin Aspart (NovoLOG) AC+HS SUBQ 07/15/18 06:30 08/13/18 08:59 Insulin Detemir (Levemir) 16 units QHS SUBQ 07/15/18 21:00 08/13/18 08:59 Lorazepam (Ativan 2mg/ml 1ml) 2 mg Q2H PRN IV agitation 07/14/18 18:44 07/21/18 18:43 Morphine Sulfate (Morphine Sulfate) 4 mg Q4H PRN IVP Severe Pain (Pain Scale 7-10) 07/14/18 18:44 07/21/18 18:43 Nateglinide (Starlix) 120 mg TIAC ORAL 07/15/18 06:30 08/14/18 06:29 Nitroglycerin (Ntg) 0.4 mg Q5M PRN SL Prn Chest Pain 07/14/18 18:45 08/12/18 11:29 Ondansetron HCl (Zofran) 4 mg Q6H PRN IVP Nausea & Vomiting 07/14/18 18:44 08/12/18 18:43 Pantoprazole (Protonix) 40 mg EVERY 12 HOURS IVP 07/14/18 21:00 08/12/18 20:59 07/15/18 10:09 Piperacillin Sod/ Tazobactam Sod 3.375 gm/Sodium Chloride 110 ml @ 27.5 mls/hr EVERY 8 HOURS IVPB 07/14/18 22:00 07/18/18 13:59 07/15/18 06:00 Polyethylene Glycol (Miralax) 17 gm DAILYPRN PRN ORAL Constipation 07/14/18 18:45 08/13/18 18:44 Potassium Chloride 100 ml @ 100 mls/hr Q1H IVPB 07/15/18 10:30 07/15/18 14:29 07/15/18 10:43 Maisha Bryant MD Jul 15, 2018 11:14
--- NOTE | 2018-07-15 11:51 | NUR ---
ST NOTE: SWALLOW STATUS DISCUSSED WITH , DR. METCALF RE:PT'S CONDITIONS AND VIDEOSWALLOW STUDY RESULTS. DUE TO PT HAS ADVANCED DEMENTIA, MD, AGREED WITH MEAL TRIALS AND TO ASSESS PT'S PO INTAKE IF G-TUBE IS NEEDED. PUT PT ON LIQUIFIED PUREED, LIKE NECTAR THICK SOUP CONSISTENCY WITH NECTAR THICK SOUP CONSISTENCY WITH STRICT ASPIRATION PRECAUTIONS WITH 1TO1 FEEDING CONSIDER COMFORT MEASURE. POSTED ASPIRATION/REFLUX PRECAUTIONS SIGN.
[2018-07-15 12:00] VITALS: BP 133/66
--- NOTE | 2018-07-15 13:39 | Nephrology Progress Note ---
Assessment/Plan Problem List: (1) Hypernatremia (2) Hyperglycemia (3) Acute metabolic encephalopathy Assessment Renal failure, mainly pre renal, partly renal? Sepsis: High lactate and High WBCs and Tachycardia Previoes CVAs Encephalopathy Hyperglycemia + Proteinuria Plan Hydrate BS control BP control Monitor renal parameters Urine studies avoid Nephrotoxics 2D echo NPO for now Subjective ROS Limited/Unobtainable: No Constitutional: Reports: malaise Objective Objective Last 24 Hour Vital Signs Date Time Temp Pulse Resp B/P (MAP) Pulse Ox O2 Delivery O2 Flow Rate FiO2 07/15/18 12:00 98.1 66 18 133/66 (88) 100 07/15/18 08:39 Room Air 07/15/18 08:00 98.2 92 20 121/53 (75) 100 07/15/18 07:45 Room Air 21 07/15/18 07:44 92 16 Room Air 21 07/15/18 07:44 92 07/15/18 07:44 98 Room Air 21 07/15/18 04:00 98.4 100 18 127/61 (83) 100 07/15/18 03:20 97 07/15/18 00:00 97.7 94 18 120/57 (78) 98 07/14/18 23:24 96 07/14/18 21:00 Room Air 07/14/18 20:35 96 16 Nasal Cannula 2.0 28 07/14/18 20:35 Nasal Cannula 2.0 28 07/14/18 20:35 99 Nasal Cannula 2.0 28 07/14/18 20:00 97.9 98 18 122/60 (80) 97 07/14/18 19:36 98 07/14/18 18:00 95 12 116/53 (74) 99 07/14/18 17:00 96 12 127/55 (79) 99 07/14/18 16:00 106 07/14/18 16:00 Nasal Cannula 2.0 07/14/18 16:00 98.2 105 12 125/46 (72) 100 07/14/18 15:00 108 12 129/55 (79) 99 07/14/18 14:00 108 12 129/57 (81) 99 Intake and Output 07/14/18 07/15/18 19:00 07:00 Intake Total 891.25 ml Output Total 485 ml 350 ml Balance 406.25 ml -350 ml Intake IV Total 891.25 ml Output Urine Total 485 ml 350 ml Laboratory Tests 07/15/18 06:06: White Blood Count 9.0, Red Blood Count 4.04L, Hemoglobin 10.9L, Hematocrit 34.2L , Mean Corpuscular Volume 85, Mean Corpuscular Hemoglobin 26.9L, Mean Corpuscular Hemoglobin Concent 31.7L, Red Cell Distribution Width 12.5, Platelet Count 195, Mean Platelet Volume 7.6, Neutrophils (%) (Auto) 73.9, Lymphocytes (%) (Auto) 19.1L, Monocytes (%) (Auto) 6.0, Eosinophils (%) (Auto) 0.6, Basophils (%) (Auto) 0.4, Erythrocyte Sedimentation Rate 102H, Sodium Level 159H, Potassium Level 3.2L, Chloride Level 122H, Carbon Dioxide Level 27, Anion Gap 10, Blood Urea Nitrogen 19H, Creatinine 1.0, Estimat Glomerular Filtration Rate , Glucose Level 59L, Calcium Level 8.5, Phosphorus Level 3.3, Magnesium Level 2.1, Iron Level 48L, Total Iron Binding Capacity 92L, Percent Iron Saturation 52H, Unsaturated Iron Binding 44L, Ferritin > 2000H, Total Bilirubin 0.4, Aspartate Amino Transf (AST/SGOT) 139H, Alanine Aminotransferase (ALT/SGPT) 45, Alkaline Phosphatase 29L, C-Reactive Protein, Quantitative 9.0H, Pro-B-Type Natriuretic Peptide 403H, Total Protein 6.5, Albumin 2.0L, Globulin 4.5, Albumin/Globulin Ratio 0.4L Height (Feet): 5 Height (Inches): 7.00 Weight (Pounds): 123 General Appearance: no apparent distress Cardiovascular: normal rate Respiratory/Chest: decreased breath sounds Abdomen: soft Objective no change Nima Greenfield MD Jul 15, 2018 13:39
[2018-07-15] MEDS ORDERED: Vancomycin 1 GM in NS 275 ML IVPB SCH (15:00)
[2018-07-15] MEDS ORDERED: Vancomycin 1gm/D5W 275ml IVPB SCH ×2 (15:00)
--- NOTE | 2018-07-15 15:00 | Infectious Diseases Prog Note ---
Assessment/Plan Assessment/Plan Abx: Zosyn 07/13- Assessment: SIRS- ?sepsis vs reactive to hyperglycemia/dehydration- ?UTI -u/a no pyuria; ucx >100k E.coli (R Ancef, CTX; S Zosyn, cipro/levo) -CXR: Chronic and age-related changes as described, including evidence of old infarcts Negative for acute intracranial bleed or mass effect Gram positive bacteremia- real vs contaminant -07/13 BCx 1/4 GPC Afebrile Leukocytosis, SP Lactic acidosis, SP Hyperglycemia, likely NKHH Acute on chronic encephalopathy -CT head: Chronic and age-related changes as described, including evidence of old infarcts. Negative for acute intracranial bleed or mass effect Dementia HTN CAD schizophrenia dysphagia NH resident Plan: -Continue empiric Zosyn #3/5-7 for possible UTI and add IV Vancomycin for GPC bacteremia -repeat 2 sets of Bcx -f/u cx -MOnitor CBC/CMP, temperatures Thank you for this consultation. Will continue to follow along with you. Discussed with RN. Subjective Allergies: Coded Allergies: No Known Allergies (Unverified , 07/13/18) Subjective afebrile at 2l NC leukocytosis resolved transferred out of ICU to tele bacteremic Objective Vital Signs Last 24 Hour Vital Signs Date Time Temp Pulse Resp B/P (MAP) Pulse Ox O2 Delivery O2 Flow Rate FiO2 07/15/18 12:00 98.1 66 18 133/66 (88) 100 07/15/18 08:39 Room Air 07/15/18 08:00 98.2 92 20 121/53 (75) 100 07/15/18 07:45 Room Air 21 07/15/18 07:44 92 16 Room Air 21 07/15/18 07:44 92 07/15/18 07:44 98 Room Air 21 07/15/18 04:00 98.4 100 18 127/61 (83) 100 07/15/18 03:20 97 07/15/18 00:00 97.7 94 18 120/57 (78) 98 07/14/18 23:24 96 07/14/18 21:00 Room Air 07/14/18 20:35 96 16 Nasal Cannula 2.0 28 07/14/18 20:35 Nasal Cannula 2.0 28 07/14/18 20:35 99 Nasal Cannula 2.0 28 07/14/18 20:00 97.9 98 18 122/60 (80) 97 07/14/18 19:36 98 07/14/18 18:00 95 12 116/53 (74) 99 07/14/18 17:00 96 12 127/55 (79) 99 07/14/18 16:00 106 07/14/18 16:00 Nasal Cannula 2.0 07/14/18 16:00 98.2 105 12 125/46 (72) 100 07/14/18 15:00 108 12 129/55 (79) 99 Height (Feet): 5 Height (Inches): 7.00 Weight (Pounds): 123 Objective General Appearance: mild distress, thin, other - Staring off into space. Appears ill. unable to answer questions., Chronically Ill HEENT: atraumatic, dry mucus membranes Neck: normal inspection, supple, no bony tend Respiratory: normal inspection, lungs clear, normal breath sounds, no respiratory distress, no retraction, no wheezing Cardiovascular regular rate, rhythm, no edema Gastrointestinal: soft, decreased bowel sounds Musculoskeletal: normal inspection, back normal Neurologic: other - Unable to full assess, appears generally confused Skin: warm/dry Microbiology Date/Time Source Procedure Growth Status 07/13/18 09:50 Blood Blood Culture - Preliminary NO GROWTH AFTER 48 HOURS Resulted 07/13/18 09:35 Blood Blood Culture - Preliminary Gram Positive Cocci Resulted 07/13/18 12:05 Nasal Nares MRSA Culture - Final NO METHICILLIN RESISTANT STAPH AUREUS... Complete 07/13/18 10:10 Urine,Clean Catch Urine Culture - Final Escherichia Coli Complete 07/13/18 12:05 Rectum VRE Culture - Final NO VANCOMYCIN RESISTANT ENTEROCOCCUS ... Complete 07/13/18 12:05 Rectum Received Laboratory Tests Test 07/15/18 06:06 White Blood Count 9.0 K/UL (4.8-10.8) Red Blood Count 4.04 M/UL (4.20-5.40) L Hemoglobin 10.9 G/DL (12.0-16.0) L Hematocrit 34.2 % (37.0-47.0) L Mean Corpuscular Volume 85 FL (80-99) Mean Corpuscular Hemoglobin 26.9 PG (27.0-31.0) L Mean Corpuscular Hemoglobin Concent 31.7 G/DL (32.0-36.0) L Red Cell Distribution Width 12.5 % (11.6-14.8) Platelet Count 195 K/UL (150-450) Mean Platelet Volume 7.6 FL (6.5-10.1) Neutrophils (%) (Auto) 73.9 % (45.0-75.0) Lymphocytes (%) (Auto) 19.1 % (20.0-45.0) L Monocytes (%) (Auto) 6.0 % (1.0-10.0) Eosinophils (%) (Auto) 0.6 % (0.0-3.0) Basophils (%) (Auto) 0.4 % (0.0-2.0) Erythrocyte Sedimentation Rate 102 MM/HR (0-30) H Sodium Level 159 MMOL/L (136-145) H Potassium Level 3.2 MMOL/L (3.5-5.1) L Chloride Level 122 MMOL/L (98-107) H Carbon Dioxide Level 27 MMOL/L (21-32) Anion Gap 10 mmol/L (5-15) Blood Urea Nitrogen 19 mg/dL (7-18) H Creatinine 1.0 MG/DL (0.55-1.30) Estimat Glomerular Filtration Rate mL/min (>60) Glucose Level 59 MG/DL (74-106) L Calcium Level 8.5 MG/DL (8.5-10.1) Phosphorus Level 3.3 MG/DL (2.5-4.9) Magnesium Level 2.1 MG/DL (1.8-2.4) Iron Level 48 ug/dL (50-175) L Total Iron Binding Capacity 92 ug/dL (250-450) L Percent Iron Saturation 52 % (15-50) H Unsaturated Iron Binding 44 ug/dL (112-346) L Ferritin > 2000 NG/ML (8-388) H Total Bilirubin 0.4 MG/DL (0.2-1.0) Aspartate Amino Transf (AST/SGOT) 139 U/L (15-37) H Alanine Aminotransferase (ALT/SGPT) 45 U/L (12-78) Alkaline Phosphatase 29 U/L (46-116) L C-Reactive Protein, Quantitative 9.0 mg/dL (0.00-0.90) H Pro-B-Type Natriuretic Peptide 403 pg/mL (0-125) H Total Protein 6.5 G/DL (6.4-8.2) Albumin 2.0 G/DL (3.4-5.0) L Globulin 4.5 g/dL Albumin/Globulin Ratio 0.4 (1.0-2.7) L Current Medications Medications (Trade) Dose Ordered Sig/Elizabeth Route PRN Reason Start Time Stop Time Status Last Admin Dose Admin Acetaminophen (Tylenol) 650 mg Q4H PRN ORAL Fever 07/14/18 18:43 08/12/18 18:42 Albuterol/ Ipratropium (Albuterol/ Ipratropium) 3 ml Q4H PRN HHN Shortness of Breath 07/14/18 18:44 07/18/18 18:43 Dextrose 1,000 ml @ 75 mls/hr [id number] IV 07/14/18 18:43 08/13/18 18:42 07/15/18 06:40 Dextrose (Dextrose 50%) 25 ml Q30M PRN IV Hypoglycemia 07/14/18 18:45 08/13/18 06:44 Dextrose (Dextrose 50%) 50 ml Q30M PRN IV Hypoglycemia 07/14/18 18:45 08/13/18 06:44 Escitalopram Oxalate (Lexapro) 5 mg DAILY ORAL 07/15/18 09:00 08/13/18 08:59 07/15/18 10:09 Heparin Sodium (Porcine) (Heparin 5000 units/ml) 5,000 units EVERY 12 HOURS SUBQ 07/14/18 21:00 08/12/18 20:59 07/15/18 10:10 Insulin Aspart (NovoLOG) AC+HS SUBQ 07/15/18 06:30 08/13/18 08:59 Insulin Detemir (Levemir) 16 units QHS SUBQ 07/15/18 21:00 08/13/18 08:59 Lorazepam (Ativan 2mg/ml 1ml) 2 mg Q2H PRN IV agitation 07/14/18 18:44 07/21/18 18:43 Morphine Sulfate (Morphine Sulfate) 4 mg Q4H PRN IVP Severe Pain (Pain Scale 7-10) 07/14/18 18:44 07/21/18 18:43 Nateglinide (Starlix) 120 mg TIAC ORAL 07/15/18 06:30 08/14/18 06:29 07/15/18 11:53 Nitroglycerin (Ntg) 0.4 mg Q5M PRN SL Prn Chest Pain 07/14/18 18:45 08/12/18 11:29 Ondansetron HCl (Zofran) 4 mg Q6H PRN IVP Nausea & Vomiting 07/14/18 18:44 08/12/18 18:43 Pantoprazole (Protonix) 40 mg EVERY 12 HOURS IVP 07/14/18 21:00 08/12/18 20:59 07/15/18 10:09 Piperacillin Sod/ Tazobactam Sod 3.375 gm/Sodium Chloride 110 ml @ 27.5 mls/hr EVERY 8 HOURS IVPB 07/14/18 22:00 07/18/18 13:59 07/15/18 14:31 Polyethylene Glycol (Miralax) 17 gm DAILYPRN PRN ORAL Constipation 07/14/18 18:45 08/13/18 18:44 Vancomycin HCl (Vanco rx to dose) 1 ea DAILY PRN MISC Per rx protocol 07/15/18 12:30 08/14/18 12:29 Vancomycin HCl 1 gm/Sodium Chloride 275 ml @ 183.708 mls/hr Q24H IVPB 07/15/18 15:00 07/20/18 14:59 Maricarmen Weiss M.D. Jul 15, 2018 15:00
--- NOTE | 2018-07-15 15:11 | NUR ---
NURSE NOTES: Patient transferred up to the floor from telemetry, report received from Fredy Glover RN, patient shows no distress, VSS, bed is locked and in lowest position, call light within reach, patient oriented to the room, belongings checked, patient has no belongings, all medications brought up with the patient, will continue to monitor.
[2018-07-15] MEDS ORDERED: Albuterol/Ipratropium 3ml neb HHN PRN (15:12)
[2018-07-15] MEDS ORDERED: Morphine Sulfate 4mg/ml Inj (IV USE ONLY) IVP PRN (15:13)
[2018-07-15] MEDS ORDERED: LORazepam Inj 2mg/ml 1ml IV PRN (15:13)
[2018-07-15] MEDS ORDERED: Nitroglycerin Subl 0.4mg tab SL PRN (15:15)
--- NOTE | 2018-07-15 15:19 | NUR ---
HAND-OFF: Report given to Bryan Jasso in 4E, pt calm and cooperative, IV was removed prior to transfer, all IV abx given to Rn along with insulin pen.
[2018-07-15] MEDS: Vancomycin 1 GM in NS 275 ML IVPB SCH (15:53)
[2018-07-15 16:00] VITALS: BP 148/77
[2018-07-15] MEDS: Memantine 5 MG TAB ORAL SCH (17:44)
[2018-07-15] MEDS ORDERED: Miralax 17gm pkt ORAL PRN (18:45)
--- NOTE | 2018-07-15 19:24 | NUR ---
HAND-OFF: Report given to Dany RUEDA.
--- NOTE | 2018-07-15 19:51 | NUR ---
NURSE NOTES: Patient in bed, awake, alert x 1. Bed in low position, provided safe environment. Skin is warm and dry to touch. Abdomen is soft and non distended. Iv site noted. No s/s of pain or discomfort noted. Frequent visual checks. Will continue plan of care.
[2018-07-15 20:00] VITALS: BP 127/65
[2018-07-15] MEDS: Levemir Flexpen SUBQ SCH (21:53)
[2018-07-16] VITALS: BP 130/77
--- NOTE | 2018-07-16 01:45 | Consultation ---
DATE OF CONSULTATION: 07/15/2018 HISTORY OF PRESENT ILLNESS: The patient is a 73-year-old female patient with altered mental status. This patient came into the hospital. She was transferred from [facility] because she had a bout of altered mental status and confusion. She is lightheaded. She was mostly alert and oriented x1 . Because her cognition has declined below baseline, they transferred her to the acute hospital because of sudden change in mental status, so she was admitted to the hospital. I saw and assessed at bedside today. She is very confused and disorganized. She was unable to respond as far as finding a logical reason why she is here in the hospital. She is unable to tell me why she came to the hospital or give me a good history, seemed to be unaware of her cognitive or medical condition at this time, so she was a very poor historian. Lot of information that I obtained had to be through chart review. PAST MEDICAL HISTORY: The patient has a history of diabetes, acute renal failure. She has tachycardia. ALLERGIES: The patient has no known drug allergies. MEDICATIONS: Psychotropic medications on admission, she is on Lexapro 5 mg daily and Ativan 2 mg intravenous q.2 hours p.r.n. anxiety and agitation. SUBSTANCE ABUSE HISTORY: Denies. PAIN ASSESSMENT: 0/10 pain. DEVELOPMENTAL PROBLEMS: Denies. FAMILY PSYCHIATRIC HISTORY: Denies. SOCIAL HISTORY: The patient lives in [facility]. She is financially supported by [employer] and Medicare. PSYCHIATRIC HISTORY: She has a history of anxiety and depression. No known previous psychiatric admissions. STRENGTHS: She is motivated to get better. She is healthy. WEAKNESSES: She is impulsive and no support system. MENTAL STATUS EXAMINATION: This is a 73-year-old female patient. Appearance is disheveled. Attitude, irritable and agitated. Affect, guarded and restricted. Intellect is poor. The patient has no logical plan. Mood, depressed and anxious. Motor activity, psychomotor agitation. Attention span is poor because she cannot do serial 7's or spell world backward. Orientation x2. She is oriented to person and place, but not to time or situation. Speech is minimally verbal, low volume and slurred. Thought process, disorganized and illogical. Thought content, she has paranoid delusions. Perception is poor because she has perceptual disturbances such as auditory hallucinations and paranoid delusion. Abstract reasoning is poor because she does not understand proverbs. She only has concrete thinking. Her insight is poor because she has no insight into her medical or psychiatric condition. Judgment is poor because she seems to be unable to make medical decisions for herself. She denies any current suicidal or homicidal ideation at this time. Short-term memory is 3/3 word recall with poor short-term memory. Long-term memory is poor because the patient does not recall long-term events in her life such as the high school that she went to. DIAGNOSES: 1. Major depressive disorder, severe, recurrent with paranoid features, rule out pseudodementia, rule out dementia with psychosis. 2. Medical, chronic renal disease and diabetes type 1. 3. Psychosocial stressors, financial. Functional impairment is severe. PLAN: Plan for this patient is treated with Ativan 2 mg IV q.4 hours p.r.n. anxiety and agitation and Lexapro 5 milligrams a day and also I am going to add Namenda 5 mg twice a day. Provided with 20 minutes of cognitive behavioral therapy to help this patient identify automatic negative thoughts and help convert those negative thoughts to more positive thoughts to reduce depression, anxiety, mood lability. Seen and assessed in her room. Chart was reviewed and discussed with staff. Katie Walker M.D. DR: Shimon JOB#: [id number] CC:
[2018-07-16 04:00] VITALS: BP 124/59
--- NOTE | 2018-07-16 05:00 | Consultation ---
DATE OF CONSULTATION: 07/15/2018 NOTE: POOR AUDIO PSYCHOTHERAPY CONSULTATION PROGRESS NOTE CONSULTING PHYSICIAN: Sherman Perez PsyD. TREATING ATTENDING PHYSICIAN: Dave Dugan D.O. HISTORY OF PRESENT ILLNESS: The patient is a 73-year-old female from [facility]. The patient was seen in the ICU. The patient was brought into the hospital for altered mental status, renal failure, DKA. The patient has an altered mental status and in ICU and confused. For these reasons, she was referred to psychotherapeutic services. This clinician assessed the patient. The patient is more responsive than admission. The patient is smiling, able to whisper words, mumble words. At this time, she is very confused and disorganized; however, responsive. She is a poor historian. Most of the information is processed by the records. . Denies suicidal or homicidal thoughts of ideations. Denies any auditory or visual hallucinations. The patient is smiling. Denies any depression or anxiety. She is confused about being in the hospital, at this time, she continues to . PAST MEDICAL HISTORY: Include history of renal failure, diabetes. ALLERGIES: The patient has no known drug allergies. SUBSTANCE ABUSE HISTORY: The patient denies history of alcohol use, illicit substance use, or smoking cigarettes. PSYCHIATRIC HISTORY: The patient has a past history of anxiety and depression. SOCIAL HISTORY: The patient is a 73-year-old female patient from [facility], financially sustained through [employer]. MENTAL STATUS EXAMINATION: The patient is alert and oriented to person. Mood is dysphoric. Affect is blunted. Thought process is disorganized. She has poor attention and concentration. Poor insight, judgment and impulse control. DIAGNOSIS: Major depressive disorder, recurrent, without psychotic features. PLAN: This clinician assessed this patient. Provided the patient with reality orientation, which is focused on improvement of her cognitive function. The patient is confused and disoriented. Oriented to person, place, time, and situation. We are also providing the patient with supportive psychotherapy, which is hospital setting, very confused, disorganized and attempted to as possible. Continue with orienting the patient, providing her with supportive psychotherapy as necessary. Continue with behavioral management. This clinician has reviewed the patient's chart. Discussed treatment with treatment team. Sherman Perez PsyD. DR: Halina JOB#: [id number] CC:
[2018-07-16] MEDS: Piperacillin/Tazobactam 3.375 GM in NS 110 ML IVPB SCH ×2 (06:24→13:20)
[2018-07-16] MEDS: NovoLOG Insulin Flexpen SUBQ SCH ×4 (06:25→21:33)
--- NOTE | 2018-07-16 06:53 | General Progress Note ---
Assessment/Plan Problem List: (1) History of CVA (cerebrovascular accident) ICD Codes: Z86.73 - Personal history of transient ischemic attack (TIA), and cerebral infarction without residual deficits SNOMED: 714450452 (2) Hyperosmolar coma ICD Codes: E11.01 - Type 2 diabetes mellitus with hyperosmolarity with coma SNOMED: 88495396, 431743540 (3) Alzheimer's dementia ICD Codes: G30.9 - Alzheimer's disease, unspecified; F02.80 - Dementia in other diseases classified elsewhere without behavioral disturbance SNOMED: 73453264 (4) Hyperglycemia ICD Codes: R73.9 - Hyperglycemia, unspecified SNOMED: 96747702 Assessment/Plan continue Levemir to 16 units qhs continue Starlix 120 mg ac tid continue NISS ac / hs Subjective Allergies: Coded Allergies: No Known Allergies (Unverified , 07/13/18) All Systems: reviewed and negative except above Subjective events noted Item Value Date Time Bedside Blood Glucose 101 mg/dl 07/16/18 0625 Bedside Blood Glucose 196 mg/dl H 07/15/18 2153 Bedside Blood Glucose 179 mg/dl H 07/15/18 1648 Bedside Blood Glucose 164 mg/dl H 07/15/18 1131 Bedside Blood Glucose 71 mg/dl 07/15/18 0719 Bedside Blood Glucose 63 mg/dl L 07/15/18 0630 Bedside Blood Glucose 115 mg/dl 07/15/18 0048 Objective Last 24 Hour Vital Signs Date Time Temp Pulse Resp B/P (MAP) Pulse Ox O2 Delivery O2 Flow Rate FiO2 07/16/18 04:00 99.6 96 20 124/59 (80) 96 07/16/18 00:00 98.2 104 20 130/77 (94) 97 07/15/18 21:00 Room Air 07/15/18 20:00 98.7 104 18 127/65 (85) 100 07/15/18 19:46 98 Room Air 21 07/15/18 19:46 103 16 Room Air 21 07/15/18 19:46 Room Air 21 07/15/18 16:00 98.8 106 18 148/77 (100) 98 07/15/18 12:00 98.1 66 18 133/66 (88) 100 07/15/18 08:39 Room Air 07/15/18 08:00 98.2 92 20 121/53 (75) 100 07/15/18 07:45 Room Air 21 07/15/18 07:44 92 16 Room Air 21 07/15/18 07:44 92 07/15/18 07:44 98 Room Air 21 Intake and Output 07/15/18 07/16/18 19:00 07:00 Intake Total 395 ml 185.0 ml Output Total 500 ml Balance -105 ml 185.0 ml Intake Oral 120 ml IV Total 275 ml 185.0 ml Output Urine Total 500 ml # Bowel Movements 1 Height (Feet): 5 Height (Inches): 7.00 Weight (Pounds): 124 General Appearance: no apparent distress Neck: normal alignment Cardiovascular: normal rate Respiratory/Chest: normal breath sounds Abdomen: normal bowel sounds Objective Current Medications Medications (Trade) Dose Ordered Sig/Elizabeth Route PRN Reason Start Time Stop Time Status Last Admin Dose Admin Acetaminophen (Tylenol) 650 mg Q4H PRN ORAL Fever 07/15/18 15:12 08/12/18 15:11 Albuterol/ Ipratropium (Albuterol/ Ipratropium) 3 ml Q4H PRN HHN Shortness of Breath 07/15/18 15:12 07/18/18 15:11 Dextrose 1,000 ml @ 75 mls/hr [id number] IV 07/15/18 15:12 08/14/18 15:11 07/16/18 06:25 Dextrose (Dextrose 50%) 25 ml Q30M PRN IV Hypoglycemia 07/15/18 15:15 08/13/18 06:44 Dextrose (Dextrose 50%) 50 ml Q30M PRN IV Hypoglycemia 07/15/18 15:15 08/13/18 06:44 Escitalopram Oxalate (Lexapro) 5 mg DAILY ORAL 07/16/18 09:00 08/13/18 08:59 Heparin Sodium (Porcine) (Heparin 5000 units/ml) 5,000 units EVERY 12 HOURS SUBQ 07/15/18 21:00 08/12/18 20:59 07/15/18 21:50 Insulin Aspart (NovoLOG) AC+HS SUBQ 07/15/18 16:30 08/13/18 08:59 07/15/18 21:52 Insulin Detemir (Levemir) 16 units QHS SUBQ 07/15/18 21:00 08/13/18 08:59 07/15/18 21:53 Lorazepam (Ativan 2mg/ml 1ml) 2 mg Q2H PRN IV agitation 07/15/18 15:13 07/21/18 15:12 Memantine (Namenda) 5 mg BID ORAL 07/15/18 18:00 08/14/18 17:59 07/15/18 17:44 Morphine Sulfate (Morphine Sulfate) 4 mg Q4H PRN IVP Severe Pain (Pain Scale 7-10) 07/15/18 15:13 07/21/18 15:12 Nateglinide (Starlix) 120 mg TIAC ORAL 07/15/18 16:30 08/14/18 06:29 07/16/18 06:24 Nitroglycerin (Ntg) 0.4 mg Q5M PRN SL Prn Chest Pain 07/15/18 15:15 08/12/18 11:29 Ondansetron HCl (Zofran) 4 mg Q6H PRN IVP Nausea & Vomiting 07/15/18 15:13 08/12/18 15:12 Pantoprazole (Protonix) 40 mg EVERY 12 HOURS IVP 07/15/18 21:00 08/12/18 20:59 07/15/18 21:50 Piperacillin Sod/ Tazobactam Sod 3.375 gm/Sodium Chloride 110 ml @ 27.5 mls/hr EVERY 8 HOURS IVPB 07/15/18 22:00 07/18/18 13:59 07/16/18 06:24 Polyethylene Glycol (Miralax) 17 gm DAILYPRN PRN ORAL Constipation 07/15/18 18:45 08/13/18 18:44 Vancomycin HCl (Vanco rx to dose) 1 ea DAILY PRN MISC Per rx protocol 07/16/18 09:00 08/14/18 12:29 Vancomycin HCl 1 gm/Sodium Chloride 275 ml @ 183.708 mls/hr Q24H IVPB 07/15/18 15:00 07/20/18 14:59 07/15/18 15:53 Shyam Gaona MD Jul 16, 2018 06:53
[2018-07-16 07:40] LABS: ANION GAP 8 mmol/L (5-15); BLOOD UREA NITROGEN 9 mg/dL (7-18); CALCIUM 8.6 MG/DL (8.5-10.1); CARBON DIOXIDE 27 MMOL/L (21-32); CHLORIDE 117 MMOL/L (98-107); CREATININE 0.9 MG/DL (0.55-1.30); POTASSIUM 3.1 MMOL/L (3.5-5.1); SODIUM 152 MMOL/L (136-145)
[2018-07-16 08:00] VITALS: BP 135/57
--- NOTE | 2018-07-16 08:05 | NUR ---
NURSE NOTES: Received pt from [facility]ARYB[facility]. Pt is nonverbal and orient x1. No SOB or acute respiratory distress noted. pt has intact iv access LH 24g is running well. pt has vasquez cath in place is running well. all needs attended, bed is locked and is in the lowest position. call light within easy reach. will continue to monitor.
[2018-07-16 08:18] LABS: BASOPHILS % (AUTO) 0.5 % (0.0-2.0); EOSINOPHILS % (AUTO) 0.6 % (0.0-3.0); HEMATOCRIT 31.4 % (37.0-47.0); LYMPHOCYTES % (AUTO) 21.1 % (20.0-45.0); MEAN CORPUSCULAR VOLUME 84 FL (80-99); MONOCYTES % (AUTO) 7.7 % (1.0-10.0); NEUTROPHILS % (AUTO) 70.1 % (45.0-75.0); PLATELET COUNT 167 K/UL (150-450); RED BLOOD COUNT 3.72 M/UL (4.20-5.40); RED CELL DISTRIBUTION WIDTH 12.3 % (11.6-14.8)
[2018-07-16] MEDS: Memantine 5 MG TAB ORAL SCH ×2 (09:33→17:02)
[2018-07-16] MEDS: Pantoprazole Inj IVP SCH ×2 (09:33→21:31)
[2018-07-16] MEDS: Heparin 5000 units/ml inj SUBQ SCH ×2 (09:34→21:32)
--- NOTE | 2018-07-16 10:47 | NUR ---
Social Service Note Confirmed with LESLIE at [facility] [phone], patient declined acceptance.
[2018-07-16 12:00] VITALS: BP 127/61
--- NOTE | 2018-07-16 12:20 | General Progress Note ---
Assessment/Plan Problem List: (1) Hyperglycemia ICD Codes: R73.9 - Hyperglycemia, unspecified SNOMED: 06068773 (2) Hypernatremia ICD Codes: E87.0 - Hyperosmolality and hypernatremia SNOMED: 53767227 (3) Severe sepsis ICD Codes: A41.9 - Sepsis, unspecified organism; R65.20 - Severe sepsis without septic shock SNOMED: 75412279 (4) Acute metabolic encephalopathy ICD Codes: G93.41 - Metabolic encephalopathy SNOMED: 96561357, 482096327 (5) History of CVA (cerebrovascular accident) ICD Codes: Z86.73 - Personal history of transient ischemic attack (TIA), and cerebral infarction without residual deficits SNOMED: 626656331 (6) Alzheimer's dementia ICD Codes: G30.9 - Alzheimer's disease, unspecified; F02.80 - Dementia in other diseases classified elsewhere without behavioral disturbance SNOMED: 92541344 (7) Hyperosmolar coma ICD Codes: E11.01 - Type 2 diabetes mellitus with hyperosmolarity with coma SNOMED: 26695986, 149847154 (8) Diabetes mellitus ICD Codes: E11.9 - Type 2 diabetes mellitus without complications SNOMED: 46324299 Status: progressing Assessment/Plan confused hyperglycemia is persistent reviewed chart and labs and meds afebrile Subjective ROS Limited/Unobtainable: Yes Allergies: Coded Allergies: No Known Allergies (Unverified , 07/13/18) Objective Last 24 Hour Vital Signs Date Time Temp Pulse Resp B/P (MAP) Pulse Ox O2 Delivery O2 Flow Rate FiO2 07/16/18 08:00 97.8 89 18 135/57 (83) 100 07/16/18 04:00 99.6 96 20 124/59 (80) 96 07/16/18 00:00 98.2 104 20 130/77 (94) 97 07/15/18 21:00 Room Air 07/15/18 20:00 98.7 104 18 127/65 (85) 100 07/15/18 19:46 98 Room Air 21 07/15/18 19:46 103 16 Room Air 21 07/15/18 19:46 Room Air 21 07/15/18 16:00 98.8 106 18 148/77 (100) 98 Intake and Output 07/15/18 07/16/18 18:59 06:59 Intake Total 395 ml 185.0 ml Output Total 500 ml Balance -105 ml 185.0 ml Intake Oral 120 ml IV Total 275 ml 185.0 ml Output Urine Total 500 ml # Bowel Movements 1 Laboratory Tests 07/16/18 05:44: White Blood Count 8.0, Red Blood Count 3.72L, Hemoglobin 10.0L, Hematocrit 31.4L , Mean Corpuscular Volume 84, Mean Corpuscular Hemoglobin 26.9L, Mean Corpuscular Hemoglobin Concent 31.9L, Red Cell Distribution Width 12.3, Platelet Count 167, Mean Platelet Volume 8.2, Neutrophils (%) (Auto) 70.1, Lymphocytes (%) (Auto) 21.1, Monocytes (%) (Auto) 7.7, Eosinophils (%) (Auto) 0.6, Basophils (%) (Auto) 0.5, Sodium Level 152H, Potassium Level 3.1L, Chloride Level 117H, Carbon Dioxide Level 27, Anion Gap 8, Blood Urea Nitrogen 9 , Creatinine 0.9, Estimat Glomerular Filtration Rate , Glucose Level 99, Calcium Level 8.6 Height (Feet): 5 Height (Inches): 7.00 Weight (Pounds): 124 EENT: PERRL/EOMI Neck: supple Cardiovascular: normal rate Respiratory/Chest: lungs clear Edwin Barnard MD Jul 16, 2018 12:20
--- NOTE | 2018-07-16 13:13 | NUR ---
NURSE NOTES:WOUND CARE NOTES:Pt presents with DTPI Sacrum .Irregular shaped black discoloration sacrum without induration but is tender when minimally palpated(L)6cm x (W)7cm. L foot metatarsals (x5)black in colour. L foot warm to touch pedal pulse palpable but weak. Elongated blood blister laterally L foot (L)3.4cm x (W)12cm. Second Serous blister noted in close proximity to lateral malleolus (L)1.8cm x (W)1.7cm.L lateral malleolus black in colour without erythema or induration. DTPI noted to medial R heel (L)3cm x (W)4.2cm.Base of wound purple without fluctuance but is indurated with marginal erythema along edges periwound without erythema. Recommendations:Apply Moisture Barrier to sacrum.Cavilon Skin Barrier along borders .Cover with Optifoam drsg. Change daily and prn. Apply Benzoin Tincture to Blisters L foot. Cover with ABD pads and wrap with Kerlix every 3 days and prn. Apply Cavilon Skin Barrier to L heel.Cover with ABd and wrap with kerlix every 7 days and prn. APM/OLIVIA mattress. Reposition at least every 2hours or as tolerated. Off-load heels with pillow. Place pillow between knees.
--- NOTE | 2018-07-16 13:31 | Pulmonology Progress Note ---
Assessment/Plan Problems: (1) Acute metabolic encephalopathy (2) Hyperosmolar coma (3) Diabetes mellitus (4) Alzheimer's dementia (5) History of CVA (cerebrovascular accident) Assessment/Plan improving more awake Na lower K supplement swallow evaluation pt/ot check electrolytes arterial doppler of legs dvt prophylaxis. Subjective ROS Limited/Unobtainable: No Constitutional: Reports: no symptoms HEENT: Repors: no symptoms Respiratory: Reports: no symptoms Allergies: Coded Allergies: No Known Allergies (Unverified , 07/13/18) Objective Last 24 Hour Vital Signs Date Time Temp Pulse Resp B/P (MAP) Pulse Ox O2 Delivery O2 Flow Rate FiO2 07/16/18 12:00 98.4 79 18 127/61 (83) 99 07/16/18 08:00 97.8 89 18 135/57 (83) 100 07/16/18 04:00 99.6 96 20 124/59 (80) 96 07/16/18 00:00 98.2 104 20 130/77 (94) 97 07/15/18 21:00 Room Air 07/15/18 20:00 98.7 104 18 127/65 (85) 100 07/15/18 19:46 98 Room Air 21 07/15/18 19:46 103 16 Room Air 21 07/15/18 19:46 Room Air 21 07/15/18 16:00 98.8 106 18 148/77 (100) 98 Intake and Output 07/15/18 07/16/18 18:59 06:59 Intake Total 395 ml 185.0 ml Output Total 500 ml Balance -105 ml 185.0 ml Intake Oral 120 ml IV Total 275 ml 185.0 ml Output Urine Total 500 ml # Bowel Movements 1 General Appearance: WD/WN, no acute distress HEENT: atraumatic Respiratory/Chest: chest wall non-tender, no respiratory distress Cardiovascular: normal peripheral pulses, regularly irregular Abdomen: normal bowel sounds, no organomegaly, no scars Extremities: no cyanosis Skin: no rash Laboratory Tests 07/16/18 05:44: White Blood Count 8.0, Red Blood Count 3.72L, Hemoglobin 10.0L, Hematocrit 31.4L , Mean Corpuscular Volume 84, Mean Corpuscular Hemoglobin 26.9L, Mean Corpuscular Hemoglobin Concent 31.9L, Red Cell Distribution Width 12.3, Platelet Count 167, Mean Platelet Volume 8.2, Neutrophils (%) (Auto) 70.1, Lymphocytes (%) (Auto) 21.1, Monocytes (%) (Auto) 7.7, Eosinophils (%) (Auto) 0.6, Basophils (%) (Auto) 0.5, Sodium Level 152H, Potassium Level 3.1L, Chloride Level 117H, Carbon Dioxide Level 27, Anion Gap 8, Blood Urea Nitrogen 9 , Creatinine 0.9, Estimat Glomerular Filtration Rate , Glucose Level 99, Calcium Level 8.6 Current Medications Medications (Trade) Dose Ordered Sig/Elizabeth Route PRN Reason Start Time Stop Time Status Last Admin Dose Admin Acetaminophen (Tylenol) 650 mg Q4H PRN ORAL Fever 07/15/18 15:12 08/12/18 15:11 Albuterol/ Ipratropium (Albuterol/ Ipratropium) 3 ml Q4H PRN HHN Shortness of Breath 07/15/18 15:12 07/18/18 15:11 Dextrose 1,000 ml @ 75 mls/hr [id number] IV 07/15/18 15:12 08/14/18 15:11 07/16/18 06:25 Dextrose (Dextrose 50%) 25 ml Q30M PRN IV Hypoglycemia 07/15/18 15:15 08/13/18 06:44 Dextrose (Dextrose 50%) 50 ml Q30M PRN IV Hypoglycemia 07/15/18 15:15 08/13/18 06:44 Escitalopram Oxalate (Lexapro) 5 mg DAILY ORAL 07/16/18 09:00 08/13/18 08:59 07/16/18 09:33 Heparin Sodium (Porcine) (Heparin 5000 units/ml) 5,000 units EVERY 12 HOURS SUBQ 07/15/18 21:00 08/12/18 20:59 07/16/18 09:34 Insulin Aspart (NovoLOG) AC+HS SUBQ 07/15/18 16:30 08/13/18 08:59 07/16/18 11:56 Insulin Detemir (Levemir) 16 units QHS SUBQ 07/15/18 21:00 08/13/18 08:59 07/15/18 21:53 Lorazepam (Ativan 2mg/ml 1ml) 2 mg Q2H PRN IV agitation 07/15/18 15:13 07/21/18 15:12 Memantine (Namenda) 5 mg BID ORAL 07/15/18 18:00 08/14/18 17:59 07/16/18 09:33 Morphine Sulfate (Morphine Sulfate) 4 mg Q4H PRN IVP Severe Pain (Pain Scale 7-10) 07/15/18 15:13 07/21/18 15:12 Nateglinide (Starlix) 120 mg TIAC ORAL 07/15/18 16:30 08/14/18 06:29 07/16/18 11:48 Nitroglycerin (Ntg) 0.4 mg Q5M PRN SL Prn Chest Pain 07/15/18 15:15 08/12/18 11:29 Ondansetron HCl (Zofran) 4 mg Q6H PRN IVP Nausea & Vomiting 07/15/18 15:13 08/12/18 15:12 Pantoprazole (Protonix) 40 mg EVERY 12 HOURS IVP 07/15/18 21:00 08/12/18 20:59 07/16/18 09:33 Piperacillin Sod/ Tazobactam Sod 3.375 gm/Sodium Chloride 110 ml @ 27.5 mls/hr EVERY 8 HOURS IVPB 07/15/18 22:00 07/18/18 13:59 07/16/18 13:20 Polyethylene Glycol (Miralax) 17 gm DAILYPRN PRN ORAL Constipation 07/15/18 18:45 08/13/18 18:44 Potassium Chloride 100 ml @ 100 mls/hr Q1HR IVPB 07/16/18 10:00 07/16/18 13:59 07/16/18 13:18 Vancomycin HCl (Vanco rx to dose) 1 ea DAILY PRN MISC Per rx protocol 07/16/18 09:00 08/14/18 12:29 Vancomycin HCl 1 gm/Sodium Chloride 275 ml @ 183.708 mls/hr Q24H IVPB 07/15/18 15:00 07/20/18 14:59 07/15/18 15:53 Maisha Bryant MD Jul 16, 2018 13:31
--- NOTE | 2018-07-16 14:44 | Cardiology Report ---
APPROVED REPORT EXAM: Two-dimensional and M-mode echocardiogram with Doppler and color Doppler. INDICATION Congestive Heart Failure M-Mode DIMENSIONS IVSd1.4 (0.7-1.1cm)Left Atrium (MM)2.4 (1.6-4.0cm) LVDd3.1 (3.5-5.6cm)Aortic Root3.2 (2.0-3.7cm) PWd1.1 (0.7-1.1cm)Aortic Cusp Exc.1.5 (1.5-2.0cm) IVSs1.7 cm LVDs1.9 (2.5-4.0cm) PWs1.2 cm Normal left ventricular chamber size, systolic function and wall motion . Left ventricular ejection fraction estimated to be 55-60 %. Mild left ventricular hypertrophy. No evidence of pericardial fat or effusion. All other cardiac chamber sizes within normal limits . Mild aortic valve sclerosis with adequate cusp excursion. Thickened mitral valve leaflets with normal excursion. Mild mitral annulus and aortic root calcification. Pulmonic valve not well visualized. IVC at normal size with physiologic collapse . A color flow and spectral Doppler study was performed and revealed: No aortic regurgitation. Mitral diastolic velocities suggest reduced left ventricular relaxation c/w mild LV diastolic dysfunction (Grade I ) Trace mitral regurgitation. Mild tricuspid regurgitation. Tricuspid systolic velocities suggests peak right ventricular systolic pressure of 39mmHg,consistent with mild pulmonary hypertension .
[2018-07-16] MEDS: Vancomycin 1 GM in NS 275 ML IVPB SCH (15:59)
[2018-07-16 16:00] VITALS: BP 124/70
--- NOTE | 2018-07-16 17:04 | Infectious Diseases Prog Note ---
Assessment/Plan Assessment/Plan Abx: Zosyn 07/13- Assessment: SIRS- ?sepsis vs reactive to hyperglycemia/dehydration- ?UTI -u/a no pyuria; ucx >100k E.coli (R Ancef, CTX; S Zosyn, cipro/levo, bactrim) -CXR: Chronic and age-related changes as described, including evidence of old infarcts Negative for acute intracranial bleed or mass effect Gram positive bacteremia- real vs contaminant -07/13 BCx 1/4 GPC; 07/15 Bcx p Afebrile Leukocytosis, SP Lactic acidosis, SP Hyperglycemia, likely NKHH Acute on chronic encephalopathy -CT head: Chronic and age-related changes as described, including evidence of old infarcts. Negative for acute intracranial bleed or mass effect Dementia HTN CAD schizophrenia dysphagia NH resident Plan: -Switch empiric Zosyn #4/5-7 to PO Bactrim for possible UTI and continue IV Vancomycin #2 for GPC bacteremia -monitor Cr and K -f/u repeat 2 sets of Bcx -f/u cx -MOnitor CBC/CMP, temperatures Thank you for this consultation. Will continue to follow along with you. Discussed with RN. Subjective Allergies: Coded Allergies: No Known Allergies (Unverified , 07/13/18) Subjective afebrile at 2l NC leukocytosis resolved transferred out of ICU to tele bacteremic Objective Vital Signs Last 24 Hour Vital Signs Date Time Temp Pulse Resp B/P (MAP) Pulse Ox O2 Delivery O2 Flow Rate FiO2 07/16/18 16:00 97.9 74 18 124/70 (88) 98 07/16/18 12:00 98.4 79 18 127/61 (83) 99 07/16/18 09:00 Room Air 07/16/18 08:00 97.8 89 18 135/57 (83) 100 07/16/18 04:00 99.6 96 20 124/59 (80) 96 07/16/18 00:00 98.2 104 20 130/77 (94) 97 07/15/18 21:00 Room Air 07/15/18 20:00 98.7 104 18 127/65 (85) 100 07/15/18 19:46 98 Room Air 21 07/15/18 19:46 103 16 Room Air 21 07/15/18 19:46 Room Air 21 Height (Feet): 5 Height (Inches): 7.00 Weight (Pounds): 124 Objective General Appearance: mild distress, thin, other - Staring off into space. Appears ill. unable to answer questions., Chronically Ill HEENT: atraumatic, dry mucus membranes Neck: normal inspection, supple, no bony tend Respiratory: normal inspection, lungs clear, normal breath sounds, no respiratory distress, no retraction, no wheezing Cardiovascular regular rate, rhythm, no edema Gastrointestinal: soft, decreased bowel sounds Musculoskeletal: normal inspection, back normal Neurologic: other - Unable to full assess, appears generally confused Skin: warm/dry Laboratory Tests Test 07/16/18 05:44 White Blood Count 8.0 K/UL (4.8-10.8) Red Blood Count 3.72 M/UL (4.20-5.40) L Hemoglobin 10.0 G/DL (12.0-16.0) L Hematocrit 31.4 % (37.0-47.0) L Mean Corpuscular Volume 84 FL (80-99) Mean Corpuscular Hemoglobin 26.9 PG (27.0-31.0) L Mean Corpuscular Hemoglobin Concent 31.9 G/DL (32.0-36.0) L Red Cell Distribution Width 12.3 % (11.6-14.8) Platelet Count 167 K/UL (150-450) Mean Platelet Volume 8.2 FL (6.5-10.1) Neutrophils (%) (Auto) 70.1 % (45.0-75.0) Lymphocytes (%) (Auto) 21.1 % (20.0-45.0) Monocytes (%) (Auto) 7.7 % (1.0-10.0) Eosinophils (%) (Auto) 0.6 % (0.0-3.0) Basophils (%) (Auto) 0.5 % (0.0-2.0) Sodium Level 152 MMOL/L (136-145) H Potassium Level 3.1 MMOL/L (3.5-5.1) L Chloride Level 117 MMOL/L (98-107) H Carbon Dioxide Level 27 MMOL/L (21-32) Anion Gap 8 mmol/L (5-15) Blood Urea Nitrogen 9 mg/dL (7-18) Creatinine 0.9 MG/DL (0.55-1.30) Estimat Glomerular Filtration Rate mL/min (>60) Glucose Level 99 MG/DL (74-106) Calcium Level 8.6 MG/DL (8.5-10.1) Current Medications Medications (Trade) Dose Ordered Sig/Elizabeth Route PRN Reason Start Time Stop Time Status Last Admin Dose Admin Acetaminophen (Tylenol) 650 mg Q4H PRN ORAL Fever 07/15/18 15:12 08/12/18 15:11 Albuterol/ Ipratropium (Albuterol/ Ipratropium) 3 ml Q4H PRN HHN Shortness of Breath 07/15/18 15:12 07/18/18 15:11 Dextrose 1,000 ml @ 75 mls/hr [id number] IV 07/15/18 15:12 08/14/18 15:11 07/16/18 06:25 Dextrose (Dextrose 50%) 25 ml Q30M PRN IV Hypoglycemia 07/15/18 15:15 08/13/18 06:44 Dextrose (Dextrose 50%) 50 ml Q30M PRN IV Hypoglycemia 07/15/18 15:15 08/13/18 06:44 Escitalopram Oxalate (Lexapro) 5 mg DAILY ORAL 07/16/18 09:00 08/13/18 08:59 07/16/18 09:33 Heparin Sodium (Porcine) (Heparin 5000 units/ml) 5,000 units EVERY 12 HOURS SUBQ 07/15/18 21:00 08/12/18 20:59 07/16/18 09:34 Insulin Aspart (NovoLOG) AC+HS SUBQ 07/15/18 16:30 08/13/18 08:59 07/16/18 11:56 Insulin Detemir (Levemir) 16 units QHS SUBQ 07/15/18 21:00 08/13/18 08:59 07/15/18 21:53 Lorazepam (Ativan 2mg/ml 1ml) 2 mg Q2H PRN IV agitation 07/15/18 15:13 07/21/18 15:12 Memantine (Namenda) 5 mg BID ORAL 07/15/18 18:00 08/14/18 17:59 07/16/18 09:33 Morphine Sulfate (Morphine Sulfate) 4 mg Q4H PRN IVP Severe Pain (Pain Scale 7-10) 07/15/18 15:13 07/21/18 15:12 Nateglinide (Starlix) 120 mg TIAC ORAL 07/15/18 16:30 08/14/18 06:29 07/16/18 11:48 Nitroglycerin (Ntg) 0.4 mg Q5M PRN SL Prn Chest Pain 07/15/18 15:15 08/12/18 11:29 Ondansetron HCl (Zofran) 4 mg Q6H PRN IVP Nausea & Vomiting 07/15/18 15:13 08/12/18 15:12 Pantoprazole (Protonix) 40 mg EVERY 12 HOURS IVP 07/15/18 21:00 08/12/18 20:59 07/16/18 09:33 Piperacillin Sod/ Tazobactam Sod 3.375 gm/Sodium Chloride 110 ml @ 27.5 mls/hr EVERY 8 HOURS IVPB 07/15/18 22:00 07/18/18 13:59 07/16/18 13:20 Polyethylene Glycol (Miralax) 17 gm DAILYPRN PRN ORAL Constipation 07/15/18 18:45 08/13/18 18:44 Vancomycin HCl (Vanco rx to dose) 1 ea DAILY PRN MISC Per rx protocol 07/16/18 09:00 08/14/18 12:29 Vancomycin HCl 1 gm/Sodium Chloride 275 ml @ 183.708 mls/hr Q24H IVPB 07/15/18 15:00 07/20/18 14:59 07/16/18 15:59 Maricarmen Weiss M.D. Jul 16, 2018 17:04
--- NOTE | 2018-07-16 18:21 | Nephrology Progress Note ---
Assessment/Plan Problem List: (1) Hypernatremia (2) Hyperglycemia (3) Acute metabolic encephalopathy Assessment Renal failure, mainly pre renal, partly renal? Sepsis: High lactate and High WBCs and Tachycardia Previoes CVAs Encephalopathy Hyperglycemia + Proteinuria Plan Hydrate BS control BP control Monitor renal parameters Urine studies avoid Nephrotoxics 2D echo Left ventricular ejection fraction estimated to be 55-60 %. Subjective ROS Limited/Unobtainable: No Constitutional: Reports: malaise Objective Objective Last 24 Hour Vital Signs Date Time Temp Pulse Resp B/P (MAP) Pulse Ox O2 Delivery O2 Flow Rate FiO2 07/16/18 16:00 97.9 74 18 124/70 (88) 98 07/16/18 12:00 98.4 79 18 127/61 (83) 99 07/16/18 09:00 Room Air 07/16/18 08:00 97.8 89 18 135/57 (83) 100 07/16/18 04:00 99.6 96 20 124/59 (80) 96 07/16/18 00:00 98.2 104 20 130/77 (94) 97 07/15/18 21:00 Room Air 07/15/18 20:00 98.7 104 18 127/65 (85) 100 07/15/18 19:46 98 Room Air 21 07/15/18 19:46 103 16 Room Air 21 07/15/18 19:46 Room Air 21 Intake and Output 07/15/18 07/16/18 19:00 07:00 Intake Total 395 ml 185.0 ml Output Total 500 ml Balance -105 ml 185.0 ml Intake Oral 120 ml IV Total 275 ml 185.0 ml Output Urine Total 500 ml # Bowel Movements 1 Laboratory Tests 07/16/18 05:44: White Blood Count 8.0, Red Blood Count 3.72L, Hemoglobin 10.0L, Hematocrit 31.4L , Mean Corpuscular Volume 84, Mean Corpuscular Hemoglobin 26.9L, Mean Corpuscular Hemoglobin Concent 31.9L, Red Cell Distribution Width 12.3, Platelet Count 167, Mean Platelet Volume 8.2, Neutrophils (%) (Auto) 70.1, Lymphocytes (%) (Auto) 21.1, Monocytes (%) (Auto) 7.7, Eosinophils (%) (Auto) 0.6, Basophils (%) (Auto) 0.5, Sodium Level 152H, Potassium Level 3.1L, Chloride Level 117H, Carbon Dioxide Level 27, Anion Gap 8, Blood Urea Nitrogen 9 , Creatinine 0.9, Estimat Glomerular Filtration Rate , Glucose Level 99, Calcium Level 8.6 Height (Feet): 5 Height (Inches): 7.00 Weight (Pounds): 124 General Appearance: no apparent distress Objective no change Nima Greenfield MD Jul 16, 2018 18:21
[2018-07-16 20:00] VITALS: BP 141/56
--- NOTE | 2018-07-16 20:07 | NUR ---
HAND-OFF: Report given to MARYBETH COUGHLIN.
--- NOTE | 2018-07-16 20:21 | NUR ---
NURSE NOTES: Patient in bed, awake, confused. No s/s of pain or discomfort noted. Kept clean and comfortable. Provided safe environment. IV site is patent, iv fluid is infusing as ordered. Call light is at bedside. Will continue plan of care.
[2018-07-16] MEDS: Bactrim-DS 1 tab ORAL SCH (21:31)
[2018-07-16] MEDS: Levemir Flexpen SUBQ SCH (21:32)
[2018-07-17] VITALS: BP 119/71
[2018-07-17 04:00] VITALS: BP 132/58
[2018-07-17] MEDS: NovoLOG Insulin Flexpen SUBQ SCH ×4 (06:30→21:27)
[2018-07-17 07:07] LABS: BASOPHILS % (AUTO) 0.6 % (0.0-2.0); EOSINOPHILS % (AUTO) 1.1 % (0.0-3.0); HEMOGLOBIN 10.5 G/DL (12.0-16.0); LYMPHOCYTES % (AUTO) 12.4 % (20.0-45.0); MEAN CORPUSCULAR VOLUME 83 FL (80-99); MONOCYTES % (AUTO) 7.4 % (1.0-10.0); NEUTROPHILS % (AUTO) 78.5 % (45.0-75.0); PLATELET COUNT 153 K/UL (150-450); RED BLOOD COUNT 3.87 M/UL (4.20-5.40); WHITE BLOOD COUNT 7.1 K/UL (4.8-10.8)
--- NOTE | 2018-07-17 07:15 | NUR ---
HAND-OFF: Report given to MARYBETH Luciano.
[2018-07-17 07:25] LABS: ALANINE AMINOTRANSFERASE 60 U/L (12-78); ALBUMIN 1.8 G/DL (3.4-5.0); ALBUMIN/GLOBULIN RATIO 0.4 (1.0-2.7); ALKALINE PHOSPHATASE 33 U/L (46-116); ANION GAP 6 mmol/L (5-15); ASPARTATE AMINO TRANSFERASE 93 U/L (15-37); BILIRUBIN,TOTAL 0.6 MG/DL (0.2-1.0); BLOOD UREA NITROGEN 7 mg/dL (7-18); CALCIUM 8.6 MG/DL (8.5-10.1); CARBON DIOXIDE 29 MMOL/L (21-32); CHLORIDE 110 MMOL/L (98-107); CREATININE 0.9 MG/DL (0.55-1.30); PHOSPHORUS 2.7 MG/DL (2.5-4.9); POTASSIUM 3.4 MMOL/L (3.5-5.1); SODIUM 145 MMOL/L (136-145)
--- NOTE | 2018-07-17 07:34 | NUR ---
NURSE NOTES: Received pt from MARYBETH COUGHLIN. Pt is nonverbal and orient x1. No SOB or acute respiratory distress noted. pt has intact iv access LH 24G is running well. pt has Marshall cath in place is running well. all needs attended, bed is locked and is in the lowest position. call light within easy reach. will continue to monitor.
[2018-07-17 08:00] VITALS: BP 156/69
--- NOTE | 2018-07-17 08:01 | Infectious Diseases Prog Note ---
Assessment/Plan Assessment/Plan Abx: Zosyn 07/13- Assessment: SIRS- ?sepsis vs reactive to hyperglycemia/dehydration- ?UTI -u/a no pyuria; ucx >100k E.coli (R Ancef, CTX; S Zosyn, cipro/levo, bactrim) -CXR: Chronic and age-related changes as described, including evidence of old infarcts Negative for acute intracranial bleed or mass effect Gram positive bacteremia- real vs contaminant -07/13 BCx 1/4 GPC; 07/15 Bcx p Afebrile Leukocytosis, SP Lactic acidosis, SP Hyperglycemia, likely NKHH Acute on chronic encephalopathy -CT head: Chronic and age-related changes as described, including evidence of old infarcts. Negative for acute intracranial bleed or mass effect Dementia HTN CAD schizophrenia dysphagia NH resident Plan: Continue Bactrim #1/3 for UTI Continue IV Vancomycin #3 for GPC bacteremia - 07/16/18 SP Zosyn #4 -f/u repeat 2 sets of Bcx -f/u cx -MOnitor CBC/CMP, temperatures Thank you for this consultation. Will continue to follow along with you. Subjective Allergies: Coded Allergies: No Known Allergies (Unverified , 07/13/18) Subjective Afebrile No leukocytosis Objective Vital Signs Last 24 Hour Vital Signs Date Time Temp Pulse Resp B/P (MAP) Pulse Ox O2 Delivery O2 Flow Rate FiO2 07/17/18 04:00 97.7 87 17 132/58 (82) 100 07/17/18 00:00 98.6 95 18 119/71 (87) 100 07/16/18 21:00 Room Air 07/16/18 20:18 101 16 Room Air 21 07/16/18 20:18 97 Room Air 21 07/16/18 20:18 Room Air 21 07/16/18 20:00 99.4 94 17 141/56 (84) 99 07/16/18 16:00 97.9 74 18 124/70 (88) 98 07/16/18 12:00 98.4 79 18 127/61 (83) 99 07/16/18 09:00 Room Air 07/16/18 08:00 97.8 89 18 135/57 (83) 100 Height (Feet): 5 Height (Inches): 7.00 Weight (Pounds): 106 Objective General Appearance: NAD HEENT: NCAT, MMM Respiratory: CTAB, No W Cardiovascular regular rate, rhythm, no edema Gastrointestinal: soft, decreased bowel sounds Musculoskeletal: normal inspection, back normal Neurologic: Confused Microbiology Date/Time Source Procedure Growth Status 07/15/18 12:55 Blood Blood Culture - Preliminary NO GROWTH AFTER 24 HOURS Resulted 07/15/18 12:45 Blood Blood Culture - Preliminary NO GROWTH AFTER 24 HOURS Resulted Laboratory Tests Test 07/17/18 06:25 White Blood Count 7.1 K/UL (4.8-10.8) Red Blood Count 3.87 M/UL (4.20-5.40) L Hemoglobin 10.5 G/DL (12.0-16.0) L Hematocrit 32.0 % (37.0-47.0) L Mean Corpuscular Volume 83 FL (80-99) Mean Corpuscular Hemoglobin 27.2 PG (27.0-31.0) Mean Corpuscular Hemoglobin Concent 32.8 G/DL (32.0-36.0) Red Cell Distribution Width 12.0 % (11.6-14.8) Platelet Count 153 K/UL (150-450) Mean Platelet Volume 8.3 FL (6.5-10.1) Neutrophils (%) (Auto) 78.5 % (45.0-75.0) H Lymphocytes (%) (Auto) 12.4 % (20.0-45.0) L Monocytes (%) (Auto) 7.4 % (1.0-10.0) Eosinophils (%) (Auto) 1.1 % (0.0-3.0) Basophils (%) (Auto) 0.6 % (0.0-2.0) Sodium Level 145 MMOL/L (136-145) Potassium Level 3.4 MMOL/L (3.5-5.1) L Chloride Level 110 MMOL/L (98-107) H Carbon Dioxide Level 29 MMOL/L (21-32) Anion Gap 6 mmol/L (5-15) Blood Urea Nitrogen 7 mg/dL (7-18) Creatinine 0.9 MG/DL (0.55-1.30) Estimat Glomerular Filtration Rate mL/min (>60) Glucose Level 159 MG/DL (74-106) H Uric Acid 2.0 MG/DL (2.6-7.2) L Calcium Level 8.6 MG/DL (8.5-10.1) Phosphorus Level 2.7 MG/DL (2.5-4.9) Magnesium Level 2.0 MG/DL (1.8-2.4) Total Bilirubin 0.6 MG/DL (0.2-1.0) Aspartate Amino Transf (AST/SGOT) 93 U/L (15-37) H Alanine Aminotransferase (ALT/SGPT) 60 U/L (12-78) Alkaline Phosphatase 33 U/L (46-116) L C-Reactive Protein, Quantitative 12.9 mg/dL (0.00-0.90) H Pro-B-Type Natriuretic Peptide 423 pg/mL (0-125) H Total Protein 6.8 G/DL (6.4-8.2) Albumin 1.8 G/DL (3.4-5.0) L Globulin 5.0 g/dL Albumin/Globulin Ratio 0.4 (1.0-2.7) L Current Medications Medications (Trade) Dose Ordered Sig/Elizabeth Route PRN Reason Start Time Stop Time Status Last Admin Dose Admin Acetaminophen (Tylenol) 650 mg Q4H PRN ORAL Fever 07/15/18 15:12 08/12/18 15:11 Albuterol/ Ipratropium (Albuterol/ Ipratropium) 3 ml Q4H PRN HHN Shortness of Breath 07/15/18 15:12 07/18/18 15:11 Dextrose 1,000 ml @ 75 mls/hr [id number] IV 07/15/18 15:12 08/14/18 15:11 07/17/18 06:48 Dextrose (Dextrose 50%) 25 ml Q30M PRN IV Hypoglycemia 07/15/18 15:15 08/13/18 06:44 Dextrose (Dextrose 50%) 50 ml Q30M PRN IV Hypoglycemia 07/15/18 15:15 08/13/18 06:44 Escitalopram Oxalate (Lexapro) 5 mg DAILY ORAL 07/16/18 09:00 08/13/18 08:59 07/16/18 09:33 Heparin Sodium (Porcine) (Heparin 5000 units/ml) 5,000 units EVERY 12 HOURS SUBQ 07/15/18 21:00 08/12/18 20:59 07/16/18 21:32 Insulin Aspart (NovoLOG) AC+HS SUBQ 07/15/18 16:30 08/13/18 08:59 07/17/18 06:30 Insulin Detemir (Levemir) 16 units QHS SUBQ 07/15/18 21:00 08/13/18 08:59 07/16/18 21:32 Lorazepam (Ativan 2mg/ml 1ml) 2 mg Q2H PRN IV agitation 07/15/18 15:13 07/21/18 15:12 Memantine (Namenda) 5 mg BID ORAL 07/15/18 18:00 08/14/18 17:59 07/16/18 17:02 Morphine Sulfate (Morphine Sulfate) 4 mg Q4H PRN IVP Severe Pain (Pain Scale 7-10) 07/15/18 15:13 07/21/18 15:12 Nateglinide (Starlix) 120 mg TIAC ORAL 07/15/18 16:30 08/14/18 06:29 07/17/18 06:26 Nitroglycerin (Ntg) 0.4 mg Q5M PRN SL Prn Chest Pain 07/15/18 15:15 08/12/18 11:29 Ondansetron HCl (Zofran) 4 mg Q6H PRN IVP Nausea & Vomiting 07/15/18 15:13 08/12/18 15:12 Pantoprazole (Protonix) 40 mg EVERY 12 HOURS IVP 07/15/18 21:00 08/12/18 20:59 07/16/18 21:31 Polyethylene Glycol (Miralax) 17 gm DAILYPRN PRN ORAL Constipation 07/15/18 18:45 08/13/18 18:44 Trimethoprim/ Sulfamethoxazole (Bactrim-DS) 1 tab Q12HR ORAL 07/16/18 21:00 07/23/18 20:59 07/16/18 21:31 Vancomycin HCl (Vanco rx to dose) 1 ea DAILY PRN MISC Per rx protocol 07/16/18 09:00 08/14/18 12:29 Vancomycin HCl 1 gm/Sodium Chloride 275 ml @ 183.708 mls/hr Q24H IVPB 07/15/18 15:00 07/20/18 14:59 07/16/18 15:59 Alexandr Rincon MD Jul 17, 2018 08:01
--- NOTE | 2018-07-17 08:18 | General Progress Note ---
Assessment/Plan Problem List: (1) History of CVA (cerebrovascular accident) ICD Codes: Z86.73 - Personal history of transient ischemic attack (TIA), and cerebral infarction without residual deficits SNOMED: 628016516 (2) Hyperosmolar coma ICD Codes: E11.01 - Type 2 diabetes mellitus with hyperosmolarity with coma SNOMED: 94105169, 594242943 (3) Alzheimer's dementia ICD Codes: G30.9 - Alzheimer's disease, unspecified; F02.80 - Dementia in other diseases classified elsewhere without behavioral disturbance SNOMED: 30910236 (4) Hyperglycemia ICD Codes: R73.9 - Hyperglycemia, unspecified SNOMED: 98877105 Assessment/Plan continue Levemir to 16 units qhs continue Starlix 120 mg ac tid continue NISS ac / hs Subjective Allergies: Coded Allergies: No Known Allergies (Unverified , 07/13/18) All Systems: reviewed and negative except above Subjective events noted Item Value Date Time Bedside Blood Glucose 131 mg/dl H 07/17/18 0630 Bedside Blood Glucose 123 mg/dl H 07/16/18 2133 Bedside Blood Glucose 199 mg/dl H 07/16/18 1706 Bedside Blood Glucose 151 mg/dl H 07/16/18 1156 Objective Last 24 Hour Vital Signs Date Time Temp Pulse Resp B/P (MAP) Pulse Ox O2 Delivery O2 Flow Rate FiO2 07/17/18 04:00 97.7 87 17 132/58 (82) 100 07/17/18 00:00 98.6 95 18 119/71 (87) 100 07/16/18 21:00 Room Air 07/16/18 20:18 101 16 Room Air 21 07/16/18 20:18 97 Room Air 21 07/16/18 20:18 Room Air 21 07/16/18 20:00 99.4 94 17 141/56 (84) 99 07/16/18 16:00 97.9 74 18 124/70 (88) 98 07/16/18 12:00 98.4 79 18 127/61 (83) 99 07/16/18 09:00 Room Air Intake and Output 07/16/18 07/17/18 19:00 07:00 Intake Total 75 ml 825 ml Output Total 750 ml Balance 75 ml 75 ml IV Total 75 ml 825 ml Output Urine Total 750 ml # Bowel Movements 1 Laboratory Tests 07/17/18 06:25: White Blood Count 7.1, Red Blood Count 3.87L, Hemoglobin 10.5L, Hematocrit 32.0L , Mean Corpuscular Volume 83, Mean Corpuscular Hemoglobin 27.2, Mean Corpuscular Hemoglobin Concent 32.8, Red Cell Distribution Width 12.0, Platelet Count 153, Mean Platelet Volume 8.3, Neutrophils (%) (Auto) 78.5H, Lymphocytes ( %) (Auto) 12.4L, Monocytes (%) (Auto) 7.4, Eosinophils (%) (Auto) 1.1, Basophils (%) (Auto) 0.6, Sodium Level 145, Potassium Level 3.4L, Chloride Level 110H, Carbon Dioxide Level 29, Anion Gap 6, Blood Urea Nitrogen 7, Creatinine 0.9, Estimat Glomerular Filtration Rate , Glucose Level 159H, Uric Acid 2.0L, Calcium Level 8.6, Phosphorus Level 2.7, Magnesium Level 2.0, Total Bilirubin 0.6, Aspartate Amino Transf (AST/SGOT) 93H, Alanine Aminotransferase ( ALT/SGPT) 60, Alkaline Phosphatase 33L, C-Reactive Protein, Quantitative 12.9H, Pro-B-Type Natriuretic Peptide 423H, Total Protein 6.8, Albumin 1.8L, Globulin 5.0, Albumin/Globulin Ratio 0.4L Height (Feet): 5 Height (Inches): 7.00 Weight (Pounds): 106 General Appearance: no apparent distress Neck: normal alignment Cardiovascular: normal rate Respiratory/Chest: normal breath sounds Abdomen: normal bowel sounds Edema: no edema noted Arm (L), no edema noted Arm (R), no edema noted Leg (L), no edema noted Leg (R), no edema noted Pedal (L), no edema noted Pedal (R), no edema noted Generalized Objective Current Medications Medications (Trade) Dose Ordered Sig/Elizabeth Route PRN Reason Start Time Stop Time Status Last Admin Dose Admin Acetaminophen (Tylenol) 650 mg Q4H PRN ORAL Fever 07/15/18 15:12 08/12/18 15:11 Albuterol/ Ipratropium (Albuterol/ Ipratropium) 3 ml Q4H PRN HHN Shortness of Breath 07/15/18 15:12 07/18/18 15:11 Dextrose 1,000 ml @ 75 mls/hr [id number] IV 07/15/18 15:12 08/14/18 15:11 07/17/18 06:48 Dextrose (Dextrose 50%) 25 ml Q30M PRN IV Hypoglycemia 07/15/18 15:15 08/13/18 06:44 Dextrose (Dextrose 50%) 50 ml Q30M PRN IV Hypoglycemia 07/15/18 15:15 08/13/18 06:44 Escitalopram Oxalate (Lexapro) 5 mg DAILY ORAL 07/16/18 09:00 08/13/18 08:59 07/16/18 09:33 Heparin Sodium (Porcine) (Heparin 5000 units/ml) 5,000 units EVERY 12 HOURS SUBQ 07/15/18 21:00 08/12/18 20:59 07/16/18 21:32 Insulin Aspart (NovoLOG) AC+HS SUBQ 07/15/18 16:30 08/13/18 08:59 07/17/18 06:30 Insulin Detemir (Levemir) 16 units QHS SUBQ 07/15/18 21:00 08/13/18 08:59 07/16/18 21:32 Lorazepam (Ativan 2mg/ml 1ml) 2 mg Q2H PRN IV agitation 07/15/18 15:13 07/21/18 15:12 Memantine (Namenda) 5 mg BID ORAL 07/15/18 18:00 08/14/18 17:59 07/16/18 17:02 Morphine Sulfate (Morphine Sulfate) 4 mg Q4H PRN IVP Severe Pain (Pain Scale 7-10) 07/15/18 15:13 07/21/18 15:12 Nateglinide (Starlix) 120 mg TIAC ORAL 07/15/18 16:30 08/14/18 06:29 07/17/18 06:26 Nitroglycerin (Ntg) 0.4 mg Q5M PRN SL Prn Chest Pain 07/15/18 15:15 08/12/18 11:29 Ondansetron HCl (Zofran) 4 mg Q6H PRN IVP Nausea & Vomiting 07/15/18 15:13 08/12/18 15:12 Pantoprazole (Protonix) 40 mg EVERY 12 HOURS IVP 07/15/18 21:00 08/12/18 20:59 07/16/18 21:31 Polyethylene Glycol (Miralax) 17 gm DAILYPRN PRN ORAL Constipation 07/15/18 18:45 08/13/18 18:44 Trimethoprim/ Sulfamethoxazole (Bactrim-DS) 1 tab Q12HR ORAL 07/16/18 21:00 07/23/18 20:59 07/16/18 21:31 Vancomycin HCl (Vanco rx to dose) 1 ea DAILY PRN MISC Per rx protocol 07/16/18 09:00 08/14/18 12:29 Vancomycin HCl 1 gm/Sodium Chloride 275 ml @ 183.708 mls/hr Q24H IVPB 07/15/18 15:00 07/20/18 14:59 07/16/18 15:59 Shyam Gaona MD Jul 17, 2018 08:18
[2018-07-17] MEDS: Bactrim-DS 1 tab ORAL SCH ×2 (09:11→21:42)
[2018-07-17] MEDS: Memantine 5 MG TAB ORAL SCH ×2 (09:11→17:06)
[2018-07-17] MEDS: Pantoprazole Inj IVP SCH ×2 (09:12→21:24)
[2018-07-17] MEDS: Heparin 5000 units/ml inj SUBQ SCH ×2 (09:25→21:26)
--- NOTE | 2018-07-17 10:35 | NUR ---
NURSE NOTES: Dr foley is aware k 3.4' order noted and carried out. will continue to monitor.
--- NOTE | 2018-07-17 10:54 | Pulmonology Progress Note ---
Assessment/Plan Problems: (1) Acute metabolic encephalopathy (2) Hyperosmolar coma (3) Diabetes mellitus (4) Alzheimer's dementia (5) History of CVA (cerebrovascular accident) Assessment/Plan improving more awake Na lower K supplement swallow evaluation pt/ot check electrolytes arterial doppler of legs still pending dvt prophylaxis. Subjective ROS Limited/Unobtainable: No Constitutional: Reports: no symptoms HEENT: Repors: no symptoms Respiratory: Reports: no symptoms Allergies: Coded Allergies: No Known Allergies (Unverified , 07/13/18) Objective Last 24 Hour Vital Signs Date Time Temp Pulse Resp B/P (MAP) Pulse Ox O2 Delivery O2 Flow Rate FiO2 07/17/18 09:00 Room Air 07/17/18 08:00 98.5 79 17 156/69 (98) 98 07/17/18 04:00 97.7 87 17 132/58 (82) 100 07/17/18 00:00 98.6 95 18 119/71 (87) 100 07/16/18 21:00 Room Air 07/16/18 20:18 101 16 Room Air 21 07/16/18 20:18 97 Room Air 21 07/16/18 20:18 Room Air 21 07/16/18 20:00 99.4 94 17 141/56 (84) 99 07/16/18 16:00 97.9 74 18 124/70 (88) 98 07/16/18 12:00 98.4 79 18 127/61 (83) 99 Intake and Output 07/16/18 07/17/18 18:59 06:59 Intake Total 900 ml Output Total 750 ml Balance 150 ml IV Total 900 ml Output Urine Total 750 ml # Bowel Movements 1 HEENT: normocephalic, atraumatic Respiratory/Chest: chest wall non-tender, normal breath sounds Breasts: no masses Cardiovascular: normal peripheral pulses Abdomen: normal bowel sounds, no organomegaly Genitourinary: normal external genitalia Extremities: no clubbing Skin: no rash Microbiology Date/Time Source Procedure Growth Status 07/15/18 12:55 Blood Blood Culture - Preliminary NO GROWTH AFTER 24 HOURS Resulted 07/15/18 12:45 Blood Blood Culture - Preliminary NO GROWTH AFTER 24 HOURS Resulted Laboratory Tests 07/17/18 06:25: White Blood Count 7.1, Red Blood Count 3.87L, Hemoglobin 10.5L, Hematocrit 32.0L , Mean Corpuscular Volume 83, Mean Corpuscular Hemoglobin 27.2, Mean Corpuscular Hemoglobin Concent 32.8, Red Cell Distribution Width 12.0, Platelet Count 153, Mean Platelet Volume 8.3, Neutrophils (%) (Auto) 78.5H, Lymphocytes ( %) (Auto) 12.4L, Monocytes (%) (Auto) 7.4, Eosinophils (%) (Auto) 1.1, Basophils (%) (Auto) 0.6, Sodium Level 145, Potassium Level 3.4L, Chloride Level 110H, Carbon Dioxide Level 29, Anion Gap 6, Blood Urea Nitrogen 7, Creatinine 0.9, Estimat Glomerular Filtration Rate , Glucose Level 159H, Uric Acid 2.0L, Calcium Level 8.6, Phosphorus Level 2.7, Magnesium Level 2.0, Total Bilirubin 0.6, Aspartate Amino Transf (AST/SGOT) 93H, Alanine Aminotransferase ( ALT/SGPT) 60, Alkaline Phosphatase 33L, C-Reactive Protein, Quantitative 12.9H, Pro-B-Type Natriuretic Peptide 423H, Total Protein 6.8, Albumin 1.8L, Globulin 5.0, Albumin/Globulin Ratio 0.4L Current Medications Medications (Trade) Dose Ordered Sig/Elizabeth Route PRN Reason Start Time Stop Time Status Last Admin Dose Admin Acetaminophen (Tylenol) 650 mg Q4H PRN ORAL Fever 07/15/18 15:12 08/12/18 15:11 Albuterol/ Ipratropium (Albuterol/ Ipratropium) 3 ml Q4H PRN HHN Shortness of Breath 07/15/18 15:12 07/18/18 15:11 Dextrose 1,000 ml @ 75 mls/hr [id number] IV 07/15/18 15:12 08/14/18 15:11 07/17/18 06:48 Dextrose (Dextrose 50%) 25 ml Q30M PRN IV Hypoglycemia 07/15/18 15:15 08/13/18 06:44 Dextrose (Dextrose 50%) 50 ml Q30M PRN IV Hypoglycemia 07/15/18 15:15 08/13/18 06:44 Escitalopram Oxalate (Lexapro) 5 mg DAILY ORAL 07/16/18 09:00 08/13/18 08:59 07/17/18 09:12 Heparin Sodium (Porcine) (Heparin 5000 units/ml) 5,000 units EVERY 12 HOURS SUBQ 07/15/18 21:00 08/12/18 20:59 07/17/18 09:25 Insulin Aspart (NovoLOG) AC+HS SUBQ 07/15/18 16:30 08/13/18 08:59 07/17/18 06:30 Insulin Detemir (Levemir) 16 units QHS SUBQ 07/15/18 21:00 08/13/18 08:59 07/16/18 21:32 Lorazepam (Ativan 2mg/ml 1ml) 2 mg Q2H PRN IV agitation 07/15/18 15:13 07/21/18 15:12 Memantine (Namenda) 5 mg BID ORAL 07/15/18 18:00 08/14/18 17:59 07/17/18 09:11 Morphine Sulfate (Morphine Sulfate) 4 mg Q4H PRN IVP Severe Pain (Pain Scale 7-10) 07/15/18 15:13 07/21/18 15:12 Nateglinide (Starlix) 120 mg TIAC ORAL 07/15/18 16:30 08/14/18 06:29 07/17/18 06:26 Nitroglycerin (Ntg) 0.4 mg Q5M PRN SL Prn Chest Pain 07/15/18 15:15 08/12/18 11:29 Ondansetron HCl (Zofran) 4 mg Q6H PRN IVP Nausea & Vomiting 07/15/18 15:13 08/12/18 15:12 Pantoprazole (Protonix) 40 mg EVERY 12 HOURS IVP 07/15/18 21:00 08/12/18 20:59 07/17/18 09:12 Polyethylene Glycol (Miralax) 17 gm DAILYPRN PRN ORAL Constipation 07/15/18 18:45 08/13/18 18:44 Potassium Chloride (K-Dur) 40 meq ONCE ORAL 07/17/18 10:30 07/17/18 11:30 Trimethoprim/ Sulfamethoxazole (Bactrim-DS) 1 tab Q12HR ORAL 07/16/18 21:00 07/23/18 20:59 07/17/18 09:11 Vancomycin HCl (Vanco rx to dose) 1 ea DAILY PRN MISC Per rx protocol 07/16/18 09:00 08/14/18 12:29 Vancomycin HCl 1 gm/Sodium Chloride 275 ml @ 183.708 mls/hr Q24H IVPB 07/15/18 15:00 07/20/18 14:59 07/16/18 15:59 Maisha Bryant MD Jul 17, 2018 10:54
[2018-07-17 12:00] VITALS: BP 133/62
--- NOTE | 2018-07-17 13:55 | Nephrology Progress Note ---
Assessment/Plan Problem List: (1) Hypernatremia (2) Hyperglycemia (3) Acute metabolic encephalopathy Assessment Renal failure, mainly pre renal, partly renal? Sepsis: High lactate and High WBCs and Tachycardia Previoes CVAs Encephalopathy Hyperglycemia + Proteinuria Plan Hydrate BS control BP control Monitor renal parameters Urine studies avoid Nephrotoxics 2D echo Left ventricular ejection fraction estimated to be 55-60 %. Subjective ROS Limited/Unobtainable: No Objective Objective Last 24 Hour Vital Signs Date Time Temp Pulse Resp B/P (MAP) Pulse Ox O2 Delivery O2 Flow Rate FiO2 07/17/18 12:00 97.2 100 17 133/62 (85) 95 07/17/18 09:00 Room Air 07/17/18 08:00 98.5 79 17 156/69 (98) 98 07/17/18 04:00 97.7 87 17 132/58 (82) 100 07/17/18 00:00 98.6 95 18 119/71 (87) 100 07/16/18 21:00 Room Air 07/16/18 20:18 101 16 Room Air 21 07/16/18 20:18 97 Room Air 21 07/16/18 20:18 Room Air 21 07/16/18 20:00 99.4 94 17 141/56 (84) 99 07/16/18 16:00 97.9 74 18 124/70 (88) 98 Intake and Output 07/16/18 07/17/18 18:59 06:59 Intake Total 900 ml Output Total 750 ml Balance 150 ml IV Total 900 ml Output Urine Total 750 ml # Bowel Movements 1 Laboratory Tests 07/17/18 06:25: White Blood Count 7.1, Red Blood Count 3.87L, Hemoglobin 10.5L, Hematocrit 32.0L , Mean Corpuscular Volume 83, Mean Corpuscular Hemoglobin 27.2, Mean Corpuscular Hemoglobin Concent 32.8, Red Cell Distribution Width 12.0, Platelet Count 153, Mean Platelet Volume 8.3, Neutrophils (%) (Auto) 78.5H, Lymphocytes ( %) (Auto) 12.4L, Monocytes (%) (Auto) 7.4, Eosinophils (%) (Auto) 1.1, Basophils (%) (Auto) 0.6, Sodium Level 145, Potassium Level 3.4L, Chloride Level 110H, Carbon Dioxide Level 29, Anion Gap 6, Blood Urea Nitrogen 7, Creatinine 0.9, Estimat Glomerular Filtration Rate , Glucose Level 159H, Uric Acid 2.0L, Calcium Level 8.6, Phosphorus Level 2.7, Magnesium Level 2.0, Total Bilirubin 0.6, Aspartate Amino Transf (AST/SGOT) 93H, Alanine Aminotransferase ( ALT/SGPT) 60, Alkaline Phosphatase 33L, C-Reactive Protein, Quantitative 12.9H, Pro-B-Type Natriuretic Peptide 423H, Total Protein 6.8, Albumin 1.8L, Globulin 5.0, Albumin/Globulin Ratio 0.4L Height (Feet): 5 Height (Inches): 7.00 Weight (Pounds): 106 General Appearance: no apparent distress Objective no change Nima Greenfield MD Jul 17, 2018 13:55
[2018-07-17] MEDS: Vancomycin 1 GM in NS 275 ML IVPB SCH (14:05)
--- NOTE | 2018-07-17 14:45 | Progress Note ---
DATE: 07/17/2018 SUBJECTIVE: The patient is a 73-year-old female patient. She continued to have altered mental status, confusion, disorganized thought process. She has got no logical plan for own self-care. She got activity. That is why, she does require inpatient treatment at this time. She does have some mood lability, confusion, some disorganized thought process, and she has got no logical plan for own self-care. MENTAL STATUS EXAMINATION: This is a 73-year-old female. Appearance disheveled. Attitude, irritable and agitated. Affect, guarded and restricted. Intellect poor. Mood depressed and anxious. Motor activity, psychomotor agitation. Attention span is poor. Orientation x2. Speech is pressured. Thought process, disorganized and illogical. Thought content, auditory hallucinations and paranoid delusions. Insight and judgment is poor. DIAGNOSIS: Major depressive disorder, mild, recurrent with psychotic features, rule out dementia with psychosis. PLAN: My plan for this patient is to continue treatment with medications to prevent any further decline in her cognition and she will continued to be followed by Psychiatry throughout hospital course. A 20 minutes of cognitive behavioral therapy to help identify automatic negative thoughts and help convert those negative thoughts to more positive thoughts to reduce depression, anxiety, and mood lability. Chart reviewed. Discussed with staff. Seen and assessed in her bedside. A 20 minutes of cognitive behavioral therapy provided. Katie Walker M.D. DR: JOSE ARMANDO JOB#: [id number] CC:
[2018-07-17 16:00] VITALS: BP 141/73
--- NOTE | 2018-07-17 17:24 | NUR ---
PT Note PT madhu completed, treatment initiated. Patient was able to come to sitting at the EOB. She tends to lean to the left and lose her balance. Patient was noted to hold her left LE in hip flexion and internal rotation. Mild wincing is noted with IR/ER. RN was notified. Patient needs PT services to increase her ROM, muscle strength and balance to improve her functional mobility. Addendum: 07/17/18 at 1725 by STORMY TIPTON PT Amended: Links added.
--- NOTE | 2018-07-17 18:53 | General Progress Note ---
Assessment/Plan Problem List: (1) Hyperglycemia ICD Codes: R73.9 - Hyperglycemia, unspecified SNOMED: 28673585 (2) Hypernatremia ICD Codes: E87.0 - Hyperosmolality and hypernatremia SNOMED: 00000658 (3) Severe sepsis ICD Codes: A41.9 - Sepsis, unspecified organism; R65.20 - Severe sepsis without septic shock SNOMED: 26170407 (4) Acute metabolic encephalopathy ICD Codes: G93.41 - Metabolic encephalopathy SNOMED: 26283202, 844520966 (5) History of CVA (cerebrovascular accident) ICD Codes: Z86.73 - Personal history of transient ischemic attack (TIA), and cerebral infarction without residual deficits SNOMED: 854681021 (6) Alzheimer's dementia ICD Codes: G30.9 - Alzheimer's disease, unspecified; F02.80 - Dementia in other diseases classified elsewhere without behavioral disturbance SNOMED: 28317456 (7) Hyperosmolar coma ICD Codes: E11.01 - Type 2 diabetes mellitus with hyperosmolarity with coma SNOMED: 88264099, 393220070 (8) Diabetes mellitus ICD Codes: E11.9 - Type 2 diabetes mellitus without complications SNOMED: 46621082 Status: progressing Assessment/Plan confused hyperglycemia is persistent reviewed chart and labs cva labile sugar afebrile Subjective ROS Limited/Unobtainable: Yes Constitutional: Reports: no symptoms Allergies: Coded Allergies: No Known Allergies (Unverified , 07/13/18) Objective Last 24 Hour Vital Signs Date Time Temp Pulse Resp B/P (MAP) Pulse Ox O2 Delivery O2 Flow Rate FiO2 07/17/18 16:00 97.7 100 18 141/73 (95) 97 07/17/18 12:00 97.2 100 17 133/62 (85) 95 07/17/18 09:00 Room Air 07/17/18 08:00 98.5 79 17 156/69 (98) 98 07/17/18 04:00 97.7 87 17 132/58 (82) 100 07/17/18 00:00 98.6 95 18 119/71 (87) 100 07/16/18 21:00 Room Air 07/16/18 20:18 101 16 Room Air 21 07/16/18 20:18 97 Room Air 21 07/16/18 20:18 Room Air 21 07/16/18 20:00 99.4 94 17 141/56 (84) 99 Intake and Output 07/16/18 07/17/18 19:00 07:00 Intake Total 75 ml 825 ml Output Total 750 ml Balance 75 ml 75 ml IV Total 75 ml 825 ml Output Urine Total 750 ml # Bowel Movements 1 Laboratory Tests 07/17/18 06:25: White Blood Count 7.1, Red Blood Count 3.87L, Hemoglobin 10.5L, Hematocrit 32.0L , Mean Corpuscular Volume 83, Mean Corpuscular Hemoglobin 27.2, Mean Corpuscular Hemoglobin Concent 32.8, Red Cell Distribution Width 12.0, Platelet Count 153, Mean Platelet Volume 8.3, Neutrophils (%) (Auto) 78.5H, Lymphocytes ( %) (Auto) 12.4L, Monocytes (%) (Auto) 7.4, Eosinophils (%) (Auto) 1.1, Basophils (%) (Auto) 0.6, Sodium Level 145, Potassium Level 3.4L, Chloride Level 110H, Carbon Dioxide Level 29, Anion Gap 6, Blood Urea Nitrogen 7, Creatinine 0.9, Estimat Glomerular Filtration Rate , Glucose Level 159H, Uric Acid 2.0L, Calcium Level 8.6, Phosphorus Level 2.7, Magnesium Level 2.0, Total Bilirubin 0.6, Aspartate Amino Transf (AST/SGOT) 93H, Alanine Aminotransferase ( ALT/SGPT) 60, Alkaline Phosphatase 33L, C-Reactive Protein, Quantitative 12.9H, Pro-B-Type Natriuretic Peptide 423H, Total Protein 6.8, Albumin 1.8L, Globulin 5.0, Albumin/Globulin Ratio 0.4L Height (Feet): 5 Height (Inches): 7.00 Weight (Pounds): 106 Neck: supple Cardiovascular: normal rate Respiratory/Chest: lungs clear Abdomen: soft Edwin Barnard MD Jul 17, 2018 18:53
--- NOTE | 2018-07-17 19:09 | NUR ---
Pt is sleeping quietly upright and in no acute distress. Pt is resting quietly at this time. On aspiration precautions and pt HOB is elevated 30 degrees. Bed is locked and in lowest position with call light within reach. Will continue to monitor
--- NOTE | 2018-07-17 19:14 | NUR ---
HAND-OFF: Report given to MADYSON.
[2018-07-17 20:00] VITALS: BP 133/82
[2018-07-17] MEDS: Levemir Flexpen SUBQ SCH (21:26)
[2018-07-18] VITALS: BP 138/82
[2018-07-18 04:00] VITALS: BP 113/52
[2018-07-18] MEDS: NovoLOG Insulin Flexpen SUBQ SCH ×5 (06:01→20:34)
--- NOTE | 2018-07-18 06:53 | NUR ---
NURSE NOTES: Patient blood sugar 63, given dextrose 25 ml. Blood sugar went up to 164. Called Dr. Gaona, awaiting call back.
--- NOTE | 2018-07-18 07:22 | NUR ---
NURSE NOTES: Received patient from Angela RUEDA, patient is sleeping in bed, no distress noted, bed is locked and in lowest position, no distress noted, call light within reach, will continue to monitor.
[2018-07-18 08:00] VITALS: BP 131/60
--- NOTE | 2018-07-18 08:01 | General Progress Note ---
Assessment/Plan Problem List: (1) History of CVA (cerebrovascular accident) ICD Codes: Z86.73 - Personal history of transient ischemic attack (TIA), and cerebral infarction without residual deficits SNOMED: 425560563 (2) Hyperosmolar coma ICD Codes: E11.01 - Type 2 diabetes mellitus with hyperosmolarity with coma SNOMED: 43906506, 630216542 (3) Alzheimer's dementia ICD Codes: G30.9 - Alzheimer's disease, unspecified; F02.80 - Dementia in other diseases classified elsewhere without behavioral disturbance SNOMED: 93566615 (4) Hyperglycemia ICD Codes: R73.9 - Hyperglycemia, unspecified SNOMED: 73161814 Assessment/Plan reducue Levemir to 10 units qhs continue Starlix 120 mg ac tid continue NISS ac / hs Subjective ROS Limited/Unobtainable: Yes Allergies: Coded Allergies: No Known Allergies (Unverified , 07/13/18) Subjective events noted hypoglycemia this morning Item Value Date Time Bedside Blood Glucose 63 mg/dl L 07/18/18 0602 Bedside Blood Glucose 127 mg/dl H 07/17/18 2149 Bedside Blood Glucose 124 mg/dl H 07/17/18 1709 Bedside Blood Glucose 135 mg/dl H 07/17/18 1245 Objective Last 24 Hour Vital Signs Date Time Temp Pulse Resp B/P (MAP) Pulse Ox O2 Delivery O2 Flow Rate FiO2 07/18/18 07:56 97 Room Air 21 07/18/18 07:56 81 21 Room Air 21 07/18/18 07:56 Room Air 21 07/18/18 04:00 98.3 74 18 113/52 (72) 95 07/18/18 00:00 98.7 91 16 138/82 (100) 100 07/17/18 21:00 Room Air 07/17/18 20:00 98.2 96 16 133/82 (99) 100 07/17/18 16:00 97.7 100 18 141/73 (95) 97 07/17/18 12:00 97.2 100 17 133/62 (85) 95 07/17/18 09:00 Room Air 07/17/18 08:00 98.5 79 17 156/69 (98) 98 Intake and Output 07/17/18 07/18/18 19:00 07:00 Intake Total 1477.416 ml 675 ml Output Total 1300 ml Balance 1477.416 ml -625 ml Intake Oral 360 ml IV Total 1117.416 ml 675 ml Output Urine Total 1300 ml Height (Feet): 5 Height (Inches): 7.00 Weight (Pounds): 104 General Appearance: no apparent distress Neck: normal alignment Cardiovascular: normal rate Respiratory/Chest: chest wall non-tender Abdomen: normal bowel sounds Objective Current Medications Medications (Trade) Dose Ordered Sig/Elizabeth Route PRN Reason Start Time Stop Time Status Last Admin Dose Admin Acetaminophen (Tylenol) 650 mg Q4H PRN ORAL Fever 07/15/18 15:12 08/12/18 15:11 Albuterol/ Ipratropium (Albuterol/ Ipratropium) 3 ml Q4H PRN HHN Shortness of Breath 07/15/18 15:12 07/18/18 15:11 Dextrose 1,000 ml @ 75 mls/hr [id number] IV 07/15/18 15:12 08/14/18 15:11 07/17/18 21:30 Dextrose (Dextrose 50%) 25 ml Q30M PRN IV Hypoglycemia 07/15/18 15:15 08/13/18 06:44 07/18/18 06:02 Dextrose (Dextrose 50%) 50 ml Q30M PRN IV Hypoglycemia 07/15/18 15:15 08/13/18 06:44 Escitalopram Oxalate (Lexapro) 5 mg DAILY ORAL 07/16/18 09:00 08/13/18 08:59 07/17/18 09:12 Heparin Sodium (Porcine) (Heparin 5000 units/ml) 5,000 units EVERY 12 HOURS SUBQ 07/15/18 21:00 08/12/18 20:59 07/17/18 21:26 Insulin Aspart (NovoLOG) AC+HS SUBQ 07/15/18 16:30 08/13/18 08:59 07/17/18 21:27 Insulin Detemir (Levemir) 16 units QHS SUBQ 07/15/18 21:00 08/13/18 08:59 07/17/18 21:26 Lorazepam (Ativan 2mg/ml 1ml) 2 mg Q2H PRN IV agitation 07/15/18 15:13 07/21/18 15:12 Memantine (Namenda) 5 mg BID ORAL 07/15/18 18:00 08/14/18 17:59 07/17/18 17:06 Morphine Sulfate (Morphine Sulfate) 4 mg Q4H PRN IVP Severe Pain (Pain Scale 7-10) 07/15/18 15:13 07/21/18 15:12 Nateglinide (Starlix) 120 mg TIAC ORAL 07/15/18 16:30 08/14/18 06:29 07/17/18 17:06 Nitroglycerin (Ntg) 0.4 mg Q5M PRN SL Prn Chest Pain 07/15/18 15:15 08/12/18 11:29 Ondansetron HCl (Zofran) 4 mg Q6H PRN IVP Nausea & Vomiting 07/15/18 15:13 08/12/18 15:12 Pantoprazole (Protonix) 40 mg EVERY 12 HOURS IVP 07/15/18 21:00 08/12/18 20:59 07/17/18 21:24 Polyethylene Glycol (Miralax) 17 gm DAILYPRN PRN ORAL Constipation 07/15/18 18:45 08/13/18 18:44 Trimethoprim/ Sulfamethoxazole (Bactrim-DS) 1 tab Q12HR ORAL 07/16/18 21:00 07/23/18 20:59 07/17/18 21:42 Vancomycin HCl (Vanco rx to dose) 1 ea DAILY PRN MISC Per rx protocol 07/16/18 09:00 08/14/18 12:29 Vancomycin HCl 1 gm/Sodium Chloride 275 ml @ 183.708 mls/hr Q24H IVPB 07/15/18 15:00 07/20/18 14:59 07/17/18 14:05 Shyam Gaona MD Jul 18, 2018 08:01
[2018-07-18] MEDS: Memantine 5 MG TAB ORAL SCH ×2 (09:13→17:53)
[2018-07-18] MEDS: Bactrim-DS 1 tab ORAL SCH ×2 (09:15→20:30)
[2018-07-18] MEDS: Pantoprazole Inj IVP SCH ×2 (09:15→20:30)
[2018-07-18] MEDS: Heparin 5000 units/ml inj SUBQ SCH ×2 (09:16→20:30)
--- NOTE | 2018-07-18 10:45 | Progress Note ---
DATE: 07/18/2018 SUBJECTIVE: The patient is a 73-year-old female patient, still has altered mental status, confusion, disorganized thought process, worsened by stress of her medical illness. That is why, attending has requested daily psychiatric consultation because her cognition has declined below baseline. MENTAL STATUS EXAMINATION: This is a 73-year-old female. Appearance is disheveled. Attitude, irritable and agitated. Affect, guarded and restricted. Intellect poor. Mood depressed and anxious. Motor activity, psychomotor agitation. Attention span is poor. Orientation x2. Speech is low volume and slurred. Thought process, disorganized and illogical. Insight and judgment are poor. DIAGNOSIS: Major depressive disorder, mild, recurrent with psychotic features, rule out pseudodementia. PLAN: Treat her with medication to clear for disorganized thought process. Twenty minutes of insight-oriented psychotherapy better insight into her confusion and decline in cognition since she has better impulse control and behavior on the unit. Chart reviewed. Discussed with staff. Katie Walker M.D. DR: JOCE JOB#: [id number] CC:
[2018-07-18 12:00] VITALS: BP 130/55
--- NOTE | 2018-07-18 12:59 | Nephrology Progress Note ---
Assessment/Plan Problem List: (1) Hypernatremia (2) Hyperglycemia (3) Acute metabolic encephalopathy Assessment Renal failure, mainly pre renal, partly renal? Sepsis: High lactate and High WBCs and Tachycardia Previoes CVAs Encephalopathy Hyperglycemia + Proteinuria Plan no labs today Hydrate BS control BP control Monitor renal parameters Urine studies avoid Nephrotoxics 2D echo Left ventricular ejection fraction estimated to be 55-60 %. Subjective ROS Limited/Unobtainable: No Constitutional: Reports: malaise Objective Objective Last 24 Hour Vital Signs Date Time Temp Pulse Resp B/P (MAP) Pulse Ox O2 Delivery O2 Flow Rate FiO2 07/18/18 08:30 Room Air 07/18/18 08:00 97.3 87 20 131/60 (83) 95 07/18/18 07:56 97 Room Air 21 07/18/18 07:56 81 21 Room Air 21 07/18/18 07:56 Room Air 21 07/18/18 04:00 98.3 74 18 113/52 (72) 95 07/18/18 00:00 98.7 91 16 138/82 (100) 100 07/17/18 21:00 Room Air 07/17/18 20:00 98.2 96 16 133/82 (99) 100 07/17/18 16:00 97.7 100 18 141/73 (95) 97 Intake and Output 07/17/18 07/18/18 18:59 06:59 Intake Total 1477.416 ml 675 ml Output Total 1300 ml Balance 1477.416 ml -625 ml Intake Oral 360 ml IV Total 1117.416 ml 675 ml Output Urine Total 1300 ml Height (Feet): 5 Height (Inches): 7.00 Weight (Pounds): 104 General Appearance: no apparent distress Cardiovascular: tachycardia Respiratory/Chest: decreased breath sounds Abdomen: soft Objective no change Nima Greenfield MD Jul 18, 2018 12:59
--- NOTE | 2018-07-18 13:07 | Pulmonology Progress Note ---
Assessment/Plan Problems: (1) Acute metabolic encephalopathy (2) Hyperosmolar coma (3) Diabetes mellitus (4) Alzheimer's dementia (5) History of CVA (cerebrovascular accident) Assessment/Plan improving more awake Na lower K supplement swallow evaluation pt/ot check electrolytes wound care dvt prophylaxis. Subjective ROS Limited/Unobtainable: No Constitutional: Reports: no symptoms HEENT: Repors: no symptoms Allergies: Coded Allergies: No Known Allergies (Unverified , 07/13/18) Objective Last 24 Hour Vital Signs Date Time Temp Pulse Resp B/P (MAP) Pulse Ox O2 Delivery O2 Flow Rate FiO2 07/18/18 08:30 Room Air 07/18/18 08:00 97.3 87 20 131/60 (83) 95 07/18/18 07:56 97 Room Air 21 07/18/18 07:56 81 21 Room Air 21 07/18/18 07:56 Room Air 21 07/18/18 04:00 98.3 74 18 113/52 (72) 95 07/18/18 00:00 98.7 91 16 138/82 (100) 100 07/17/18 21:00 Room Air 07/17/18 20:00 98.2 96 16 133/82 (99) 100 07/17/18 16:00 97.7 100 18 141/73 (95) 97 Intake and Output 07/17/18 07/18/18 19:00 07:00 Intake Total 1477.416 ml 675 ml Output Total 1300 ml Balance 1477.416 ml -625 ml Intake Oral 360 ml IV Total 1117.416 ml 675 ml Output Urine Total 1300 ml Objective General Appearance: WD/WN Lines, tubes and drains: peripheral HEENT: normocephalic, atraumatic Neck: non-tender, normal alignment Respiratory/Chest: chest wall non-tender, lungs clear Breasts: no masses Cardiovascular/Chest: normal peripheral pulses, normal rate Abdomen: normal bowel sounds Genitourinary/Rectal: normal genital exam Extremities: normal range of motion Neurologic: visual display manager II-XII grossly normal Current Medications Medications (Trade) Dose Ordered Sig/Elizabeth Route PRN Reason Start Time Stop Time Status Last Admin Dose Admin Acetaminophen (Tylenol) 650 mg Q4H PRN ORAL Fever 07/15/18 15:12 08/12/18 15:11 Albuterol/ Ipratropium (Albuterol/ Ipratropium) 3 ml Q4H PRN HHN Shortness of Breath 07/15/18 15:12 07/18/18 15:11 Dextrose 1,000 ml @ 75 mls/hr [id number] IV 07/15/18 15:12 08/14/18 15:11 07/18/18 09:17 Dextrose (Dextrose 50%) 25 ml Q30M PRN IV Hypoglycemia 07/15/18 15:15 08/13/18 06:44 07/18/18 06:02 Dextrose (Dextrose 50%) 50 ml Q30M PRN IV Hypoglycemia 07/15/18 15:15 08/13/18 06:44 Escitalopram Oxalate (Lexapro) 5 mg DAILY ORAL 07/16/18 09:00 08/13/18 08:59 07/18/18 09:14 Heparin Sodium (Porcine) (Heparin 5000 units/ml) 5,000 units EVERY 12 HOURS SUBQ 07/15/18 21:00 08/12/18 20:59 07/18/18 09:16 Insulin Aspart (NovoLOG) AC+HS SUBQ 07/15/18 16:30 08/13/18 08:59 07/18/18 12:48 Insulin Detemir (Levemir) 20 units QHS SUBQ 07/18/18 21:00 08/13/18 08:59 Lorazepam (Ativan 2mg/ml 1ml) 2 mg Q2H PRN IV agitation 07/15/18 15:13 07/21/18 15:12 Memantine (Namenda) 5 mg BID ORAL 07/15/18 18:00 08/14/18 17:59 07/18/18 09:13 Morphine Sulfate (Morphine Sulfate) 4 mg Q4H PRN IVP Severe Pain (Pain Scale 7-10) 07/15/18 15:13 07/21/18 15:12 Nateglinide (Starlix) 120 mg TIAC ORAL 07/15/18 16:30 08/14/18 06:29 07/17/18 17:06 Nitroglycerin (Ntg) 0.4 mg Q5M PRN SL Prn Chest Pain 07/15/18 15:15 08/12/18 11:29 Ondansetron HCl (Zofran) 4 mg Q6H PRN IVP Nausea & Vomiting 07/15/18 15:13 08/12/18 15:12 Pantoprazole (Protonix) 40 mg EVERY 12 HOURS IVP 07/15/18 21:00 08/12/18 20:59 07/18/18 09:15 Polyethylene Glycol (Miralax) 17 gm DAILYPRN PRN ORAL Constipation 07/15/18 18:45 08/13/18 18:44 Trimethoprim/ Sulfamethoxazole (Bactrim-DS) 1 tab Q12HR ORAL 07/16/18 21:00 07/23/18 20:59 07/18/18 09:15 Vancomycin HCl (Vanco rx to dose) 1 ea DAILY PRN MISC Per rx protocol 07/16/18 09:00 08/14/18 12:29 Vancomycin HCl 1 gm/Sodium Chloride 275 ml @ 183.708 mls/hr Q24H IVPB 07/15/18 15:00 07/20/18 14:59 07/17/18 14:05 Maisha Bryant MD Jul 18, 2018 13:07
--- NOTE | 2018-07-18 13:37 | General Progress Note ---
Assessment/Plan Problem List: (1) Hyperglycemia ICD Codes: R73.9 - Hyperglycemia, unspecified SNOMED: 04449514 (2) Hypernatremia ICD Codes: E87.0 - Hyperosmolality and hypernatremia SNOMED: 34560419 (3) Severe sepsis ICD Codes: A41.9 - Sepsis, unspecified organism; R65.20 - Severe sepsis without septic shock SNOMED: 61778058 (4) Acute metabolic encephalopathy ICD Codes: G93.41 - Metabolic encephalopathy SNOMED: 26058451, 363835367 (5) History of CVA (cerebrovascular accident) ICD Codes: Z86.73 - Personal history of transient ischemic attack (TIA), and cerebral infarction without residual deficits SNOMED: 800623977 (6) Alzheimer's dementia ICD Codes: G30.9 - Alzheimer's disease, unspecified; F02.80 - Dementia in other diseases classified elsewhere without behavioral disturbance SNOMED: 50816045 (7) Hyperosmolar coma ICD Codes: E11.01 - Type 2 diabetes mellitus with hyperosmolarity with coma SNOMED: 32013820, 494685303 (8) Diabetes mellitus ICD Codes: E11.9 - Type 2 diabetes mellitus without complications SNOMED: 26720782 Status: progressing Assessment/Plan confused hyperglycemia is persistent weak check labs vitals holding afebrile reviewed chart cva Subjective ROS Limited/Unobtainable: Yes Allergies: Coded Allergies: No Known Allergies (Unverified , 07/13/18) Objective Last 24 Hour Vital Signs Date Time Temp Pulse Resp B/P (MAP) Pulse Ox O2 Delivery O2 Flow Rate FiO2 07/18/18 08:30 Room Air 07/18/18 08:00 97.3 87 20 131/60 (83) 95 07/18/18 07:56 97 Room Air 21 07/18/18 07:56 81 21 Room Air 21 07/18/18 07:56 Room Air 21 07/18/18 04:00 98.3 74 18 113/52 (72) 95 07/18/18 00:00 98.7 91 16 138/82 (100) 100 07/17/18 21:00 Room Air 07/17/18 20:00 98.2 96 16 133/82 (99) 100 07/17/18 16:00 97.7 100 18 141/73 (95) 97 Intake and Output 07/17/18 07/18/18 19:00 07:00 Intake Total 1477.416 ml 675 ml Output Total 1300 ml Balance 1477.416 ml -625 ml Intake Oral 360 ml IV Total 1117.416 ml 675 ml Output Urine Total 1300 ml Height (Feet): 5 Height (Inches): 7.00 Weight (Pounds): 104 Cardiovascular: regular rhythm Respiratory/Chest: lungs clear Abdomen: soft Edwin Barnard MD Jul 18, 2018 13:37
[2018-07-18] MEDS: Vancomycin 1 GM in NS 275 ML IVPB SCH (14:27)
[2018-07-18 16:00] VITALS: BP 108/58
[2018-07-18] MEDS ORDERED: Vancomycin 1250mg/D5W 275ml IVPB SCH (17:00)
--- NOTE | 2018-07-18 19:20 | NUR ---
NURSE NOTES: Received patient awake in bed, able to verbalize needs, denies pain, no s/s of acute distress. IV site asymptomatic, currently running abx, dressing dry and intact, wrapped in kerlix. Marshall noted, urine clear and yellow. Bed on lowest position, 2 side rails up, call light and belongings within reach. Will monitor blood glucose closely.
--- NOTE | 2018-07-18 19:27 | NUR ---
HAND-OFF: Report given to Arun RUEDA.
[2018-07-18 20:00] VITALS: BP 135/87
[2018-07-18] MEDS ORDERED: Levemir Flexpen SUBQ SCH (21:00)
[2018-07-19] VITALS: BP 130/79
[2018-07-19 04:00] VITALS: BP 126/63
[2018-07-19] MEDS: NovoLOG Insulin Flexpen SUBQ SCH ×5 (06:04→21:00)
[2018-07-19 06:59] LABS: BASOPHILS % (AUTO) 0.5 % (0.0-2.0); EOSINOPHILS % (AUTO) 1.5 % (0.0-3.0); HEMATOCRIT 31.4 % (37.0-47.0); HEMOGLOBIN 10.6 G/DL (12.0-16.0); LYMPHOCYTES % (AUTO) 14.9 % (20.0-45.0); MEAN CORPUSCULAR VOLUME 81 FL (80-99); MONOCYTES % (AUTO) 7.4 % (1.0-10.0); NEUTROPHILS % (AUTO) 75.7 % (45.0-75.0); PLATELET COUNT 233 K/UL (150-450); RED BLOOD COUNT 3.86 M/UL (4.20-5.40); RED CELL DISTRIBUTION WIDTH 11.5 % (11.6-14.8)
--- NOTE | 2018-07-19 07:15 | NUR ---
HAND-OFF: Report given to MARYBETH Luciano.
[2018-07-19 07:19] LABS: ALANINE AMINOTRANSFERASE 62 U/L (12-78); ALBUMIN 1.7 G/DL (3.4-5.0); ALBUMIN/GLOBULIN RATIO 0.4 (1.0-2.7); ALKALINE PHOSPHATASE 31 U/L (46-116); ANION GAP 9 mmol/L (5-15); ASPARTATE AMINO TRANSFERASE 66 U/L (15-37); BILIRUBIN,TOTAL 0.4 MG/DL (0.2-1.0); BLOOD UREA NITROGEN 2 mg/dL (7-18); CALCIUM 8.6 MG/DL (8.5-10.1); CARBON DIOXIDE 28 MMOL/L (21-32); CHLORIDE 110 MMOL/L (98-107); CREATININE 0.9 MG/DL (0.55-1.30); PHOSPHORUS 3.1 MG/DL (2.5-4.9); POTASSIUM 2.8 MMOL/L (3.5-5.1); SODIUM 145 MMOL/L (136-145)
--- NOTE | 2018-07-19 07:30 | NUR ---
NURSE NOTES: Received pt from RN . Pt is non verbal and orient x1. No SOB or acute respiratory distress noted. no complain of pain at this moment. pt has intact iv access LFA 24g is running well. all needs attended, bed is locked and is in the lowest position. call light within easy reach. will continue to monitor.
[2018-07-19 08:00] VITALS: BP 130/60
--- NOTE | 2018-07-19 08:45 | Progress Note ---
DATE: 07/16/2018 NOTE: UNCLEAR AUDIO SUBJECTIVE: The patient is a 73-year-old female patient. She has altered mental status, worsened by stress of her medical illness. She is confused and disorganized thought process and mood lability. She has got no logical plan for own self-care. She has got low energy, poor appetite, and . She does require inpatient treatment at this time. She does have altered mental status, confusion, and disorganized thought process worsened by stress with her medical illness. MENTAL STATUS EXAMINATION: This is a 73-year-old female. Appearance is disheveled. Attitude, irritable and agitated. Affect, guarded and restricted. Intellect poor. Mood, depressed and anxious. Motor activity, psychomotor agitation. Attention span is poor. Orientation x2. Speech is pressured. Thought process, disorganized and illogical. Insight and judgment is poor. DIAGNOSIS: Major depressive disorder, rule out dementia with psychosis. PLAN: Treat her with psychotropic medications. A 20 minutes of cognitive behavioral therapy to help this patient identify automatic negative thoughts and help convert those negative thoughts to more positive thoughts. A 20 minutes of cognitive behavioral therapy. Chart was reviewed and discussed with staff. Katie Walker M.D. DR: JOSE ARMANDO JOB#: [id number] CC:
--- NOTE | 2018-07-19 08:51 | General Progress Note ---
Assessment/Plan Problem List: (1) History of CVA (cerebrovascular accident) ICD Codes: Z86.73 - Personal history of transient ischemic attack (TIA), and cerebral infarction without residual deficits SNOMED: 820558389 (2) Hyperosmolar coma ICD Codes: E11.01 - Type 2 diabetes mellitus with hyperosmolarity with coma SNOMED: 50256746, 122806910 (3) Alzheimer's dementia ICD Codes: G30.9 - Alzheimer's disease, unspecified; F02.80 - Dementia in other diseases classified elsewhere without behavioral disturbance SNOMED: 48492294 (4) Hyperglycemia ICD Codes: R73.9 - Hyperglycemia, unspecified SNOMED: 21478832 Assessment/Plan continue Levemir 20 units qhs DC Starlix 120 mg ac tid continue NISS ac / hs Subjective Allergies: Coded Allergies: No Known Allergies (Unverified , 07/13/18) All Systems: reviewed and negative except above Subjective events noted refused Starlix all day yesterday Item Value Date Time Bedside Blood Glucose 164 mg/dl H 07/19/18 0630 Bedside Blood Glucose 167 mg/dl H 07/18/18 2034 Bedside Blood Glucose 86 mg/dl 07/18/18 1630 Bedside Blood Glucose 120 mg/dl 07/18/18 1248 Objective Last 24 Hour Vital Signs Date Time Temp Pulse Resp B/P (MAP) Pulse Ox O2 Delivery O2 Flow Rate FiO2 07/19/18 04:00 98.6 100 18 126/63 (84) 100 07/19/18 00:00 98.3 95 18 130/79 (96) 98 07/18/18 21:00 Room Air 07/18/18 20:00 97.7 105 18 135/87 (103) 98 07/18/18 16:00 98.1 91 20 108/58 (75) 98 07/18/18 12:00 97.8 97 20 130/55 (80) 99 Intake and Output 07/18/18 07/19/18 19:00 07:00 Intake Total 600 ml 975 ml Output Total 1001 ml 2401 ml Balance -401 ml -1426 ml Intake Oral 250 ml 150 ml IV Total 350 ml 825 ml Output Urine Total 1000 ml 2400 ml Stool Total 1 ml 1 ml # Bowel Movements 1 Laboratory Tests 07/18/18 14:50: Vancomycin Level Trough 12.9H 07/19/18 04:45: White Blood Count 7.0, Red Blood Count 3.86L, Hemoglobin 10.6L, Hematocrit 31.4L , Mean Corpuscular Volume 81, Mean Corpuscular Hemoglobin 27.3, Mean Corpuscular Hemoglobin Concent 33.6, Red Cell Distribution Width 11.5L, Platelet Count 233, Mean Platelet Volume 7.4, Neutrophils (%) (Auto) 75.7H, Lymphocytes (%) (Auto) 14.9L, Monocytes (%) (Auto) 7.4, Eosinophils (%) (Auto) 1.5, Basophils (%) (Auto) 0.5, Erythrocyte Sedimentation Rate [Pending], Sodium Level 145, Potassium Level 2.8L, Chloride Level 110H, Carbon Dioxide Level 28, Anion Gap 9, Blood Urea Nitrogen 2L, Creatinine 0.9, Estimat Glomerular Filtration Rate , Glucose Level 41L, Calcium Level 8.6, Phosphorus Level 3.1, Magnesium Level 2.0, Total Bilirubin 0.4, Aspartate Amino Transf (AST/SGOT) 66H , Alanine Aminotransferase (ALT/SGPT) 62, Alkaline Phosphatase 31L, C-Reactive Protein, Quantitative 11.1H, Total Protein 6.5, Albumin 1.7L, Globulin 4.8, Albumin/Globulin Ratio 0.4L Height (Feet): 5 Height (Inches): 7.00 Weight (Pounds): 103 General Appearance: no apparent distress Neck: normal alignment Cardiovascular: normal rate Respiratory/Chest: normal breath sounds Abdomen: normal bowel sounds Extremities: other - both feet dressed Objective Current Medications Medications (Trade) Dose Ordered Sig/Elizabeth Route PRN Reason Start Time Stop Time Status Last Admin Dose Admin Acetaminophen (Tylenol) 650 mg Q4H PRN ORAL Fever 07/15/18 15:12 08/12/18 15:11 Dextrose 1,000 ml @ 75 mls/hr [id number] IV 07/15/18 15:12 08/14/18 15:11 07/18/18 09:17 Dextrose (Dextrose 50%) 25 ml Q30M PRN IV Hypoglycemia 07/15/18 15:15 08/13/18 06:44 07/18/18 06:02 Dextrose (Dextrose 50%) 50 ml Q30M PRN IV Hypoglycemia 07/15/18 15:15 08/13/18 06:44 07/19/18 06:07 Escitalopram Oxalate (Lexapro) 5 mg DAILY ORAL 07/16/18 09:00 08/13/18 08:59 07/18/18 09:14 Heparin Sodium (Porcine) (Heparin 5000 units/ml) 5,000 units EVERY 12 HOURS SUBQ 07/15/18 21:00 08/12/18 20:59 07/18/18 20:30 Insulin Aspart (NovoLOG) AC+HS SUBQ 07/15/18 16:30 08/13/18 08:59 07/19/18 06:30 Insulin Detemir (Levemir) 20 units QHS SUBQ 07/18/18 21:00 08/13/18 08:59 07/18/18 20:32 Lorazepam (Ativan 2mg/ml 1ml) 2 mg Q2H PRN IV agitation 07/15/18 15:13 07/21/18 15:12 Memantine (Namenda) 5 mg BID ORAL 07/15/18 18:00 08/14/18 17:59 07/18/18 17:53 Morphine Sulfate (Morphine Sulfate) 4 mg Q4H PRN IVP Severe Pain (Pain Scale 7-10) 07/15/18 15:13 07/21/18 15:12 Nateglinide (Starlix) 120 mg TIAC ORAL 07/15/18 16:30 08/14/18 06:29 07/17/18 17:06 Nitroglycerin (Ntg) 0.4 mg Q5M PRN SL Prn Chest Pain 07/15/18 15:15 08/12/18 11:29 Ondansetron HCl (Zofran) 4 mg Q6H PRN IVP Nausea & Vomiting 07/15/18 15:13 08/12/18 15:12 Pantoprazole (Protonix) 40 mg EVERY 12 HOURS IVP 07/15/18 21:00 08/12/18 20:59 07/18/18 20:30 Polyethylene Glycol (Miralax) 17 gm DAILYPRN PRN ORAL Constipation 07/15/18 18:45 08/13/18 18:44 Trimethoprim/ Sulfamethoxazole (Bactrim-DS) 1 tab Q12HR ORAL 07/16/18 21:00 07/23/18 20:59 07/18/18 20:30 Vancomycin HCl (Vanco rx to dose) 1 ea DAILY PRN MISC Per rx protocol 07/16/18 09:00 08/14/18 12:29 Vancomycin HCl/ Dextrose 275 ml @ 183.333 mls/hr Q24H IVPB 07/18/18 17:00 07/25/18 16:59 07/18/18 17:47 Shyam Gaona MD Jul 19, 2018 08:51
[2018-07-19] MEDS: Memantine 5 MG TAB ORAL SCH ×2 (09:25→18:16)
[2018-07-19] MEDS: Bactrim-DS 1 tab ORAL SCH ×2 (09:25→21:00)
[2018-07-19] MEDS: Pantoprazole Inj IVP SCH ×2 (09:25→21:22)
[2018-07-19] MEDS: Heparin 5000 units/ml inj SUBQ SCH ×2 (09:26→21:00)
--- NOTE | 2018-07-19 09:44 | NUR ---
NURSE NOTES: called Dr foley regarding k 2.8, left massage waiting to call back. will continue to monitor.
--- NOTE | 2018-07-19 10:45 | Infectious Diseases Prog Note ---
Assessment/Plan Assessment/Plan Abx: Zosyn 07/13- Assessment: SIRS- ?sepsis vs reactive to hyperglycemia/dehydration- ?UTI -u/a no pyuria; ucx >100k E.coli (R Ancef, CTX; S Zosyn, cipro/levo, bactrim) -CXR: Chronic and age-related changes as described, including evidence of old infarcts Negative for acute intracranial bleed or mass effect Gram positive bacteremia- contaminant -07/13 BCx / S. simulans; 07/15 Bcx NTD Afebrile Leukocytosis, SP Lactic acidosis, SP Hyperglycemia, likely NKHH Acute on chronic encephalopathy -CT head: Chronic and age-related changes as described, including evidence of old infarcts. Negative for acute intracranial bleed or mass effect Dementia HTN CAD schizophrenia dysphagia NH resident Plan: Continue Bactrim #3/3 for UTI D/c empiric IV Vancomycin #5 - 07/16/18 SP Zosyn #4 -f/u repeat 2 sets of Bcx -f/u cx -MOnitor CBC/CMP, temperatures Thank you for this consultation. Will continue to follow along with you. Subjective Allergies: Coded Allergies: No Known Allergies (Unverified , 07/13/18) Subjective afebrile at 2l NC no leukocytosis repeat Bcx NTD Objective Vital Signs Last 24 Hour Vital Signs Date Time Temp Pulse Resp B/P (MAP) Pulse Ox O2 Delivery O2 Flow Rate FiO2 07/19/18 08:00 98.3 80 18 130/60 (83) 100 07/19/18 04:00 98.6 100 18 126/63 (84) 100 07/19/18 00:00 98.3 95 18 130/79 (96) 98 07/18/18 21:00 Room Air 07/18/18 20:00 97.7 105 18 135/87 (103) 98 07/18/18 16:00 98.1 91 20 108/58 (75) 98 07/18/18 12:00 97.8 97 20 130/55 (80) 99 Height (Feet): 5 Height (Inches): 7.00 Weight (Pounds): 103 Objective General Appearance: mild distress, thin, other - Staring off into space. Appears ill. unable to answer questions., Chronically Ill HEENT: atraumatic, dry mucus membranes Neck: normal inspection, supple, no bony tend Respiratory: normal inspection, lungs clear, normal breath sounds, no respiratory distress, no retraction, no wheezing Cardiovascular regular rate, rhythm, no edema Gastrointestinal: soft, decreased bowel sounds Musculoskeletal: normal inspection, back normal Neurologic: other - Unable to full assess, appears generally confused Skin: warm/dry Laboratory Tests Test 07/18/18 14:50 07/19/18 04:45 Vancomycin Level Trough 12.9 ug/mL (5.0-12.0) H White Blood Count 7.0 K/UL (4.8-10.8) Red Blood Count 3.86 M/UL (4.20-5.40) L Hemoglobin 10.6 G/DL (12.0-16.0) L Hematocrit 31.4 % (37.0-47.0) L Mean Corpuscular Volume 81 FL (80-99) Mean Corpuscular Hemoglobin 27.3 PG (27.0-31.0) Mean Corpuscular Hemoglobin Concent 33.6 G/DL (32.0-36.0) Red Cell Distribution Width 11.5 % (11.6-14.8) L Platelet Count 233 K/UL (150-450) Mean Platelet Volume 7.4 FL (6.5-10.1) Neutrophils (%) (Auto) 75.7 % (45.0-75.0) H Lymphocytes (%) (Auto) 14.9 % (20.0-45.0) L Monocytes (%) (Auto) 7.4 % (1.0-10.0) Eosinophils (%) (Auto) 1.5 % (0.0-3.0) Basophils (%) (Auto) 0.5 % (0.0-2.0) Erythrocyte Sedimentation Rate 111 MM/HR (0-30) H Sodium Level 145 MMOL/L (136-145) Potassium Level 2.8 MMOL/L (3.5-5.1) L Chloride Level 110 MMOL/L (98-107) H Carbon Dioxide Level 28 MMOL/L (21-32) Anion Gap 9 mmol/L (5-15) Blood Urea Nitrogen 2 mg/dL (7-18) L Creatinine 0.9 MG/DL (0.55-1.30) Estimat Glomerular Filtration Rate mL/min (>60) Glucose Level 41 MG/DL (74-106) L Calcium Level 8.6 MG/DL (8.5-10.1) Phosphorus Level 3.1 MG/DL (2.5-4.9) Magnesium Level 2.0 MG/DL (1.8-2.4) Total Bilirubin 0.4 MG/DL (0.2-1.0) Aspartate Amino Transf (AST/SGOT) 66 U/L (15-37) H Alanine Aminotransferase (ALT/SGPT) 62 U/L (12-78) Alkaline Phosphatase 31 U/L (46-116) L C-Reactive Protein, Quantitative 11.1 mg/dL (0.00-0.90) H Total Protein 6.5 G/DL (6.4-8.2) Albumin 1.7 G/DL (3.4-5.0) L Globulin 4.8 g/dL Albumin/Globulin Ratio 0.4 (1.0-2.7) L Current Medications Medications (Trade) Dose Ordered Sig/Elizabeth Route PRN Reason Start Time Stop Time Status Last Admin Dose Admin Acetaminophen (Tylenol) 650 mg Q4H PRN ORAL Fever 07/15/18 15:12 08/12/18 15:11 Dextrose 1,000 ml @ 30 mls/hr Q24H IV 07/19/18 11:30 08/18/18 11:29 Dextrose (Dextrose 50%) 25 ml Q30M PRN IV Hypoglycemia 07/15/18 15:15 08/13/18 06:44 07/18/18 06:02 Dextrose (Dextrose 50%) 50 ml Q30M PRN IV Hypoglycemia 07/15/18 15:15 08/13/18 06:44 07/19/18 06:07 Escitalopram Oxalate (Lexapro) 5 mg DAILY ORAL 07/16/18 09:00 08/13/18 08:59 07/19/18 09:25 Heparin Sodium (Porcine) (Heparin 5000 units/ml) 5,000 units EVERY 12 HOURS SUBQ 07/15/18 21:00 08/12/18 20:59 07/19/18 09:26 Insulin Aspart (NovoLOG) AC+HS SUBQ 07/15/18 16:30 08/13/18 08:59 07/19/18 06:30 Insulin Detemir (Levemir) 20 units QHS SUBQ 07/18/18 21:00 08/13/18 08:59 07/18/18 20:32 Lorazepam (Ativan 2mg/ml 1ml) 2 mg Q2H PRN IV agitation 07/15/18 15:13 07/21/18 15:12 Memantine (Namenda) 5 mg BID ORAL 07/15/18 18:00 08/14/18 17:59 07/19/18 09:25 Morphine Sulfate (Morphine Sulfate) 4 mg Q4H PRN IVP Severe Pain (Pain Scale 7-10) 07/15/18 15:13 07/21/18 15:12 Nitroglycerin (Ntg) 0.4 mg Q5M PRN SL Prn Chest Pain 07/15/18 15:15 08/12/18 11:29 Ondansetron HCl (Zofran) 4 mg Q6H PRN IVP Nausea & Vomiting 07/15/18 15:13 08/12/18 15:12 Pantoprazole (Protonix) 40 mg EVERY 12 HOURS IVP 07/15/18 21:00 08/12/18 20:59 07/19/18 09:25 Polyethylene Glycol (Miralax) 17 gm DAILYPRN PRN ORAL Constipation 07/15/18 18:45 08/13/18 18:44 Potassium Chloride (K-Dur) 40 meq TID ORAL 07/19/18 10:15 08/18/18 10:14 07/19/18 10:32 Trimethoprim/ Sulfamethoxazole (Bactrim-DS) 1 tab Q12HR ORAL 07/16/18 21:00 07/23/18 20:59 07/19/18 09:25 Vancomycin HCl (Vanco rx to dose) 1 ea DAILY PRN MISC Per rx protocol 07/16/18 09:00 08/14/18 12:29 Vancomycin HCl/ Dextrose 275 ml @ 183.333 mls/hr Q24H IVPB 07/18/18 17:00 07/25/18 16:59 07/18/18 17:47 Maricarmen Weiss M.D. Jul 19, 2018 10:44
--- NOTE | 2018-07-19 11:00 | NUR ---
NURSE NOTES: Dr duarte called back, all orders noted and carried out. will continue to monitor.
[2018-07-19] MEDS: Dextrose 10% 1,000 ML IV SCH (11:50)
[2018-07-19 12:00] VITALS: BP_SYST 14; BP_SYST 140; BP_DIAS 64
[2018-07-19] MEDS ORDERED: Spironolactone 25mg tab ORAL SCH (12:09)
--- NOTE | 2018-07-19 12:10 | Nephrology Progress Note ---
Assessment/Plan Problem List: (1) Hypernatremia (2) Hyperglycemia (3) Acute metabolic encephalopathy Assessment Renal failure, mainly pre renal, partly renal? Sepsis: High lactate and High WBCs and Tachycardia Previoes CVAs Encephalopathy Hyperglycemia + Proteinuria Plan K supplements Hydrate BS control BP control Monitor renal parameters Urine studies avoid Nephrotoxics 2D echo Left ventricular ejection fraction estimated to be 55-60 %. Subjective ROS Limited/Unobtainable: No Constitutional: Reports: malaise Objective Objective Last 24 Hour Vital Signs Date Time Temp Pulse Resp B/P (MAP) Pulse Ox O2 Delivery O2 Flow Rate FiO2 07/19/18 08:00 98.3 80 18 130/60 (83) 100 07/19/18 04:00 98.6 100 18 126/63 (84) 100 07/19/18 00:00 98.3 95 18 130/79 (96) 98 07/18/18 21:00 Room Air 07/18/18 20:00 97.7 105 18 135/87 (103) 98 07/18/18 16:00 98.1 91 20 108/58 (75) 98 Intake and Output 07/18/18 07/19/18 19:00 07:00 Intake Total 600 ml 975 ml Output Total 1001 ml 2401 ml Balance -401 ml -1426 ml Intake Oral 250 ml 150 ml IV Total 350 ml 825 ml Output Urine Total 1000 ml 2400 ml Stool Total 1 ml 1 ml # Bowel Movements 1 Laboratory Tests 07/18/18 14:50: Vancomycin Level Trough 12.9H 07/19/18 04:45: White Blood Count 7.0, Red Blood Count 3.86L, Hemoglobin 10.6L, Hematocrit 31.4L , Mean Corpuscular Volume 81, Mean Corpuscular Hemoglobin 27.3, Mean Corpuscular Hemoglobin Concent 33.6, Red Cell Distribution Width 11.5L, Platelet Count 233, Mean Platelet Volume 7.4, Neutrophils (%) (Auto) 75.7H, Lymphocytes (%) (Auto) 14.9L, Monocytes (%) (Auto) 7.4, Eosinophils (%) (Auto) 1.5, Basophils (%) (Auto) 0.5, Erythrocyte Sedimentation Rate 111H, Sodium Level 145, Potassium Level 2.8L, Chloride Level 110H, Carbon Dioxide Level 28, Anion Gap 9, Blood Urea Nitrogen 2L, Creatinine 0.9, Estimat Glomerular Filtration Rate , Glucose Level 41L, Calcium Level 8.6, Phosphorus Level 3.1, Magnesium Level 2.0, Total Bilirubin 0.4, Aspartate Amino Transf (AST/SGOT) 66H , Alanine Aminotransferase (ALT/SGPT) 62, Alkaline Phosphatase 31L, C-Reactive Protein, Quantitative 11.1H, Total Protein 6.5, Albumin 1.7L, Globulin 4.8, Albumin/Globulin Ratio 0.4L Height (Feet): 5 Height (Inches): 7.00 Weight (Pounds): 103 General Appearance: no apparent distress Neck: limited range of motion Cardiovascular: normal rate Respiratory/Chest: decreased breath sounds Abdomen: soft Objective no change Nima Greenfield MD Jul 19, 2018 12:10
--- NOTE | 2018-07-19 12:45 | NUR ---
NURSE NOTES: BS 56 given dextrose 50% 25ml, Dr garcia is aware, D/C LEVEMIR. noted and carried out. will continue to monitor.
--- NOTE | 2018-07-19 13:13 | Pulmonology Progress Note ---
Assessment/Plan Problems: (1) Acute metabolic encephalopathy (2) Hyperosmolar coma (3) Diabetes mellitus (4) Alzheimer's dementia (5) History of CVA (cerebrovascular accident) Assessment/Plan improving more awake Na lower K supplement swallow evaluation reviewed pt/ot check electrolytes wound care symptomatic treatment dvt prophylaxis. Subjective ROS Limited/Unobtainable: No Allergies: Coded Allergies: No Known Allergies (Unverified , 07/13/18) Objective Last 24 Hour Vital Signs Date Time Temp Pulse Resp B/P (MAP) Pulse Ox O2 Delivery O2 Flow Rate FiO2 07/19/18 12:00 98.4 96 20 14/64 (48) 96 07/19/18 08:00 98.3 80 18 130/60 (83) 100 07/19/18 04:00 98.6 100 18 126/63 (84) 100 07/19/18 00:00 98.3 95 18 130/79 (96) 98 07/18/18 21:00 Room Air 07/18/18 20:00 97.7 105 18 135/87 (103) 98 07/18/18 16:00 98.1 91 20 108/58 (75) 98 Intake and Output 07/18/18 07/19/18 19:00 07:00 Intake Total 600 ml 975 ml Output Total 1001 ml 2401 ml Balance -401 ml -1426 ml Intake Oral 250 ml 150 ml IV Total 350 ml 825 ml Output Urine Total 1000 ml 2400 ml Stool Total 1 ml 1 ml # Bowel Movements 1 Objective General Appearance: WD/WN Lines, tubes and drains: peripheral HEENT: normocephalic, atraumatic Neck: non-tender, normal alignment Respiratory/Chest: chest wall non-tender, lungs clear Breasts: no masses Cardiovascular/Chest: normal peripheral pulses, normal rate Abdomen: normal bowel sounds Genitourinary/Rectal: normal genital exam Extremities: normal range of motion 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 Laboratory Tests 07/18/18 14:50: Vancomycin Level Trough 12.9H 07/19/18 04:45: White Blood Count 7.0, Red Blood Count 3.86L, Hemoglobin 10.6L, Hematocrit 31.4L , Mean Corpuscular Volume 81, Mean Corpuscular Hemoglobin 27.3, Mean Corpuscular Hemoglobin Concent 33.6, Red Cell Distribution Width 11.5L, Platelet Count 233, Mean Platelet Volume 7.4, Neutrophils (%) (Auto) 75.7H, Lymphocytes (%) (Auto) 14.9L, Monocytes (%) (Auto) 7.4, Eosinophils (%) (Auto) 1.5, Basophils (%) (Auto) 0.5, Erythrocyte Sedimentation Rate 111H, Sodium Level 145, Potassium Level 2.8L, Chloride Level 110H, Carbon Dioxide Level 28, Anion Gap 9, Blood Urea Nitrogen 2L, Creatinine 0.9, Estimat Glomerular Filtration Rate , Glucose Level 41L, Calcium Level 8.6, Phosphorus Level 3.1, Magnesium Level 2.0, Total Bilirubin 0.4, Aspartate Amino Transf (AST/SGOT) 66H , Alanine Aminotransferase (ALT/SGPT) 62, Alkaline Phosphatase 31L, C-Reactive Protein, Quantitative 11.1H, Total Protein 6.5, Albumin 1.7L, Globulin 4.8, Albumin/Globulin Ratio 0.4L Current Medications Medications (Trade) Dose Ordered Sig/Elizabeth Route PRN Reason Start Time Stop Time Status Last Admin Dose Admin Acetaminophen (Tylenol) 650 mg Q4H PRN ORAL Fever 07/15/18 15:12 08/12/18 15:11 Dextrose 1,000 ml @ 30 mls/hr Q24H IV 07/19/18 11:30 08/18/18 11:29 07/19/18 11:50 Dextrose (Dextrose 50%) 25 ml Q30M PRN IV Hypoglycemia 07/15/18 15:15 08/13/18 06:44 07/19/18 12:28 Dextrose (Dextrose 50%) 50 ml Q30M PRN IV Hypoglycemia 07/15/18 15:15 08/13/18 06:44 07/19/18 06:07 Escitalopram Oxalate (Lexapro) 5 mg DAILY ORAL 07/16/18 09:00 08/13/18 08:59 07/19/18 09:25 Heparin Sodium (Porcine) (Heparin 5000 units/ml) 5,000 units EVERY 12 HOURS SUBQ 07/15/18 21:00 08/12/18 20:59 07/19/18 09:26 Insulin Aspart (NovoLOG) AC+HS SUBQ 07/15/18 16:30 08/13/18 08:59 07/19/18 06:30 Lorazepam (Ativan 2mg/ml 1ml) 2 mg Q2H PRN IV agitation 07/15/18 15:13 07/21/18 15:12 Memantine (Namenda) 5 mg BID ORAL 07/15/18 18:00 08/14/18 17:59 07/19/18 09:25 Morphine Sulfate (Morphine Sulfate) 4 mg Q4H PRN IVP Severe Pain (Pain Scale 7-10) 07/15/18 15:13 07/21/18 15:12 Nitroglycerin (Ntg) 0.4 mg Q5M PRN SL Prn Chest Pain 07/15/18 15:15 08/12/18 11:29 Ondansetron HCl (Zofran) 4 mg Q6H PRN IVP Nausea & Vomiting 07/15/18 15:13 08/12/18 15:12 Pantoprazole (Protonix) 40 mg EVERY 12 HOURS IVP 07/15/18 21:00 08/12/18 20:59 07/19/18 09:25 Polyethylene Glycol (Miralax) 17 gm DAILYPRN PRN ORAL Constipation 07/15/18 18:45 08/13/18 18:44 Potassium Chloride 100 ml @ 100 mls/hr Q1H IVPB 07/19/18 13:30 07/19/18 18:29 07/19/18 13:01 Spironolactone (Aldactone) 25 mg DAILY ORAL 07/20/18 09:00 08/19/18 08:59 Trimethoprim/ Sulfamethoxazole (Bactrim-DS) 1 tab Q12HR ORAL 07/16/18 21:00 07/23/18 20:59 07/19/18 09:25 Maisha Bryant MD Jul 19, 2018 13:13
--- NOTE | 2018-07-19 15:04 | General Progress Note ---
Assessment/Plan Problem List: (1) Hyperglycemia ICD Codes: R73.9 - Hyperglycemia, unspecified SNOMED: 75476580 (2) Hypernatremia ICD Codes: E87.0 - Hyperosmolality and hypernatremia SNOMED: 53522576 (3) Severe sepsis ICD Codes: A41.9 - Sepsis, unspecified organism; R65.20 - Severe sepsis without septic shock SNOMED: 14890288 (4) Acute metabolic encephalopathy ICD Codes: G93.41 - Metabolic encephalopathy SNOMED: 83899697, 724297595 (5) History of CVA (cerebrovascular accident) ICD Codes: Z86.73 - Personal history of transient ischemic attack (TIA), and cerebral infarction without residual deficits SNOMED: 574905903 (6) Alzheimer's dementia ICD Codes: G30.9 - Alzheimer's disease, unspecified; F02.80 - Dementia in other diseases classified elsewhere without behavioral disturbance SNOMED: 38693978 (7) Hyperosmolar coma ICD Codes: E11.01 - Type 2 diabetes mellitus with hyperosmolarity with coma SNOMED: 62178924, 742546127 (8) Diabetes mellitus ICD Codes: E11.9 - Type 2 diabetes mellitus without complications SNOMED: 31082662 Status: progressing Status Narrative afebrile nac encephalopathy niddn htn poor historian Assessment/Plan confused hyperglycemia is persistent weak check labs vitals holding afebrile reviewed chart cva Subjective ROS Limited/Unobtainable: Yes Allergies: Coded Allergies: No Known Allergies (Unverified , 07/13/18) Objective Last 24 Hour Vital Signs Date Time Temp Pulse Resp B/P (MAP) Pulse Ox O2 Delivery O2 Flow Rate FiO2 07/19/18 12:00 98.4 96 20 14/64 (48) 96 07/19/18 09:00 Room Air 07/19/18 08:00 98.3 80 18 130/60 (83) 100 07/19/18 04:00 98.6 100 18 126/63 (84) 100 07/19/18 00:00 98.3 95 18 130/79 (96) 98 07/18/18 21:00 Room Air 07/18/18 20:00 97.7 105 18 135/87 (103) 98 07/18/18 16:00 98.1 91 20 108/58 (75) 98 Intake and Output 07/18/18 07/19/18 19:00 07:00 Intake Total 600 ml 975 ml Output Total 1001 ml 2401 ml Balance -401 ml -1426 ml Intake Oral 250 ml 150 ml IV Total 350 ml 825 ml Output Urine Total 1000 ml 2400 ml Stool Total 1 ml 1 ml # Bowel Movements 1 Laboratory Tests 07/19/18 04:45: White Blood Count 7.0, Red Blood Count 3.86L, Hemoglobin 10.6L, Hematocrit 31.4L , Mean Corpuscular Volume 81, Mean Corpuscular Hemoglobin 27.3, Mean Corpuscular Hemoglobin Concent 33.6, Red Cell Distribution Width 11.5L, Platelet Count 233, Mean Platelet Volume 7.4, Neutrophils (%) (Auto) 75.7H, Lymphocytes (%) (Auto) 14.9L, Monocytes (%) (Auto) 7.4, Eosinophils (%) (Auto) 1.5, Basophils (%) (Auto) 0.5, Erythrocyte Sedimentation Rate 111H, Sodium Level 145, Potassium Level 2.8L, Chloride Level 110H, Carbon Dioxide Level 28, Anion Gap 9, Blood Urea Nitrogen 2L, Creatinine 0.9, Estimat Glomerular Filtration Rate , Glucose Level 41L, Calcium Level 8.6, Phosphorus Level 3.1, Magnesium Level 2.0, Total Bilirubin 0.4, Aspartate Amino Transf (AST/SGOT) 66H , Alanine Aminotransferase (ALT/SGPT) 62, Alkaline Phosphatase 31L, C-Reactive Protein, Quantitative 11.1H, Total Protein 6.5, Albumin 1.7L, Globulin 4.8, Albumin/Globulin Ratio 0.4L Height (Feet): 5 Height (Inches): 7.00 Weight (Pounds): 103 EENT: PERRL/EOMI Neck: supple Cardiovascular: normal rate Respiratory/Chest: lungs clear Abdomen: soft Edwin Barnard MD Jul 19, 2018 15:04
--- NOTE | 2018-07-19 15:54 | NUR ---
NURSE NOTES:WOUND CARE FOLLOW-UP NOTES:Irregular shaped pressure injury sacrum black in colour without fluctuance or induration(L)5cm x (W)7cm. Additional scattered partial thickness shearing noted periwound.Pt denied tenderness when affected area palpated.Elongated blood filled blister lateral L foot (L)3.4cm x (W)12cm. Second intact serous blister in close proximity (L)3.6cm x (W)1.4cm. All five metatarsals are black in colour . Reabsorbed blister medial R heel(L) 2.5cm x (W)4.2cm .Wound bed dry/ black without fluctuance or induration.Periwound without erythema or induration. Pt has an APM /OLIVIA mattress overlay. Observed positioned on side with pillow and both heels are being off-loaded with pillows. Recommendations :Continue current wound care orders and wound prevention protocols as implemented. +
[2018-07-19 16:00] VITALS: BP 134/61
--- NOTE | 2018-07-19 17:00 | Progress Note ---
DATE: 07/19/2018 SUBJECTIVE: The patient is a 73-year-old female with altered mental status, confused, disorganized, mood labile. Because of decline in cognition, her attending has requested daily psychiatric consultation. MENTAL STATUS EXAMINATION: The patient is a 73-year-old female. Her appearance is disheveled. Attitude, irritable and agitated. Affect, guarded and restricted. Intellect poor. Mood, depressed and anxious. Motor activity, psychomotor agitation. Attention span is poor. Orientation x2. Speech is low volume and slurred. Thought process, disorganized and illogical. Insight and judgment is poor. DIAGNOSIS: Major depressive disorder, severe, recurrent with psychotic features. PLAN: Continue treatment with medications to clear for disorganized thought processes. Continue to be followed throughout hospital course. A 20 minutes of insight-oriented psychotherapy to help her insight into her cognitive decline. So, she has better behavior and impulse control. Chart reviewed and discussed with the staff. Seen and assessed in her room. Katie Walker M.D. DR: ALESHIA JOB#: [id number] CC:
--- NOTE | 2018-07-19 18:30 | Progress Note ---
DATE: 07/19/2018 SUBJECTIVE: The patient is a 73-year-old female patient with altered mental status. She is confused and disorganized. She has got mood lability. She has got no logical plan for own self-care. She has got feelings of hopelessness, helplessness, low energy, poor appetite, loss of interest in activity. MENTAL STATUS EXAMINATION: This is a 73-year-old female. Appearance is disheveled. Attitude, irritable and agitated. Affect, guarded and restricted. Intellect poor. Mood, depressed and anxious. Motor activity, psychomotor agitation. Attention span is poor. Orientation x2. Speech is low volume. Thought process, disorganized and illogical. Insight and judgment is poor. DIAGNOSIS: Major depressive disorder, mild, recurrent with psychotic features. Continue to treat this patient to improve her cognition and to prevent any further decline in cognition and provide her with 20 minutes of insight-oriented psychotherapy to help her insight in the unit. Chart reviewed and discussed with staff Seen and assessed at bedside. Katie Walker M.D. DR: Shimon JOB#: [id number] CC:
[2018-07-19 20:00] VITALS: BP 128/58
--- NOTE | 2018-07-19 20:01 | NUR ---
HAND-OFF: Report given to mercedes.
--- NOTE | 2018-07-19 20:05 | NUR ---
NURSE NOTES: Received patient awake in bed, no s/s of distress. Marshall noted, draining yellow urine. IV site asymptomatic, patent, dressing dry and intact. Bed on lowest position, call light within reach. Will monitor blood glucose closely.
--- NOTE | 2018-07-19 21:44 | Diagnostic Imaging Report ---
APPROVED REPORT CPT Code: 90277 Symptoms Bilaterally BILATERAL LEGS : Common femoral artery waveform analysis is within normal limits at rest. Color flow duplex sonography reveals calcification throughout the superficial femoral and popliteal arteries. There is no evidence of stenosis or occlusion within these segments. The tibioperoneal trunk was not well visualized. The distal posterior tibial, anterior tibial and dorsalis pedis arteries are also mildly calcified. However, Doppler tibial artery waveform analysis is compatible with moderate ischemia.
[2018-07-20] VITALS: BP 131/59
--- NOTE | 2018-07-20 01:30 | NUR ---
NURSE NOTES: Received patient from Amie RUEDA, patient is asleep, VSS, no acute distress noted, bed is in low position, locked and alarm is on, call light within reach. Will continue to monitor for safety and comfort.
[2018-07-20 04:30] VITALS: BP 118/56
[2018-07-20] MEDS: NovoLOG Insulin Flexpen SUBQ SCH ×3 (05:50→17:18)
--- NOTE | 2018-07-20 06:36 | General Progress Note ---
Assessment/Plan Problem List: (1) History of CVA (cerebrovascular accident) ICD Codes: Z86.73 - Personal history of transient ischemic attack (TIA), and cerebral infarction without residual deficits SNOMED: 321783369 (2) Hyperosmolar coma ICD Codes: E11.01 - Type 2 diabetes mellitus with hyperosmolarity with coma SNOMED: 21619056, 795352223 (3) Alzheimer's dementia ICD Codes: G30.9 - Alzheimer's disease, unspecified; F02.80 - Dementia in other diseases classified elsewhere without behavioral disturbance SNOMED: 79724600 (4) Hyperglycemia ICD Codes: R73.9 - Hyperglycemia, unspecified SNOMED: 23724428 Assessment/Plan no need for scheduled insulin order continue NISS ac / hs hypoglycemia protocol in order Subjective Allergies: Coded Allergies: No Known Allergies (Unverified , 07/13/18) All Systems: reviewed and negative except above Subjective events noted Shant TRINIDAD'ed due to low BG reading Item Value Date Time Bedside Blood Glucose Critically Low Result 07/20/18 0605 Bedside Blood Glucose 72 mg/dl 07/19/18 2144 Bedside Blood Glucose 74 mg/dl 07/19/18 1630 Bedside Blood Glucose 107 mg/dl 07/19/18 1235 Bedside Blood Glucose 164 mg/dl H 07/19/18 0630 Objective Last 24 Hour Vital Signs Date Time Temp Pulse Resp B/P (MAP) Pulse Ox O2 Delivery O2 Flow Rate FiO2 07/20/18 04:30 97.9 90 16 118/56 (76) 07/20/18 00:00 97.4 91 16 131/59 (83) 96 07/19/18 21:00 Room Air 07/19/18 20:00 88 16 Room Air 21 07/19/18 20:00 98.3 89 16 128/58 (81) 98 07/19/18 16:00 97.9 89 19 134/61 (85) 96 07/19/18 12:00 98.4 96 20 140/64 (89) 96 07/19/18 09:00 Room Air 07/19/18 08:00 98.3 80 18 130/60 (83) 100 Intake and Output 07/19/18 07/20/18 19:00 07:00 Intake Total 550 ml 100 ml Output Total 500 ml Balance 550 ml -400 ml IV Total 550 ml 100 ml Output Urine Total 500 ml # Bowel Movements 1 Height (Feet): 5 Height (Inches): 7.00 Weight (Pounds): 103 General Appearance: no apparent distress Neck: normal alignment Cardiovascular: normal rate Respiratory/Chest: lungs clear Abdomen: normal bowel sounds Objective Current Medications Medications (Trade) Dose Ordered Sig/Elizabeth Route PRN Reason Start Time Stop Time Status Last Admin Dose Admin Acetaminophen (Tylenol) 650 mg Q4H PRN ORAL Fever 07/15/18 15:12 08/12/18 15:11 Dextrose 1,000 ml @ 30 mls/hr Q24H IV 07/19/18 11:30 08/18/18 11:29 07/19/18 11:50 Dextrose (Dextrose 50%) 25 ml Q30M PRN IV Hypoglycemia 07/15/18 15:15 08/13/18 06:44 07/19/18 12:28 Dextrose (Dextrose 50%) 50 ml Q30M PRN IV Hypoglycemia 07/15/18 15:15 08/13/18 06:44 07/19/18 06:07 Escitalopram Oxalate (Lexapro) 5 mg DAILY ORAL 07/16/18 09:00 08/13/18 08:59 07/19/18 09:25 Heparin Sodium (Porcine) (Heparin 5000 units/ml) 5,000 units EVERY 12 HOURS SUBQ 07/15/18 21:00 08/12/18 20:59 07/19/18 09:26 Insulin Aspart (NovoLOG) AC+HS SUBQ 07/15/18 16:30 08/13/18 08:59 07/20/18 05:50 Lorazepam (Ativan 2mg/ml 1ml) 2 mg Q2H PRN IV agitation 07/15/18 15:13 07/21/18 15:12 Memantine (Namenda) 5 mg BID ORAL 07/15/18 18:00 08/14/18 17:59 07/19/18 18:16 Morphine Sulfate (Morphine Sulfate) 4 mg Q4H PRN IVP Severe Pain (Pain Scale 7-10) 07/15/18 15:13 07/21/18 15:12 Nitroglycerin (Ntg) 0.4 mg Q5M PRN SL Prn Chest Pain 07/15/18 15:15 08/12/18 11:29 Ondansetron HCl (Zofran) 4 mg Q6H PRN IVP Nausea & Vomiting 07/15/18 15:13 08/12/18 15:12 Pantoprazole (Protonix) 40 mg EVERY 12 HOURS IVP 07/15/18 21:00 08/12/18 20:59 07/19/18 21:22 Polyethylene Glycol (Miralax) 17 gm DAILYPRN PRN ORAL Constipation 07/15/18 18:45 08/13/18 18:44 Spironolactone (Aldactone) 25 mg DAILY ORAL 07/20/18 09:00 08/19/18 08:59 Trimethoprim/ Sulfamethoxazole (Bactrim-DS) 1 tab Q12HR ORAL 07/16/18 21:00 07/23/18 20:59 07/19/18 09:25 Shyam Gaona MD Jul 20, 2018 06:36
[2018-07-20 07:15] LABS: BASOPHILS % (AUTO) 0.3 % (0.0-2.0); HEMATOCRIT 31.2 % (37.0-47.0); HEMOGLOBIN 10.3 G/DL (12.0-16.0); LYMPHOCYTES % (AUTO) 16.2 % (20.0-45.0); MEAN CORPUSCULAR VOLUME 81 FL (80-99); MONOCYTES % (AUTO) 7.2 % (1.0-10.0); NEUTROPHILS % (AUTO) 75.4 % (45.0-75.0); PLATELET COUNT 322 K/UL (150-450); RED BLOOD COUNT 3.85 M/UL (4.20-5.40); RED CELL DISTRIBUTION WIDTH 11.6 % (11.6-14.8); WHITE BLOOD COUNT 7.2 K/UL (4.8-10.8)
--- NOTE | 2018-07-20 07:16 | NUR ---
HAND-OFF: Report given to Vijaya RUEDA.
[2018-07-20 07:38] LABS: ALANINE AMINOTRANSFERASE 61 U/L (12-78); ALBUMIN 1.8 G/DL (3.4-5.0); ALBUMIN/GLOBULIN RATIO 0.4 (1.0-2.7); ALKALINE PHOSPHATASE 30 U/L (46-116); ANION GAP 4 mmol/L (5-15); ASPARTATE AMINO TRANSFERASE 50 U/L (15-37); BILIRUBIN,TOTAL 0.3 MG/DL (0.2-1.0); BLOOD UREA NITROGEN 1 mg/dL (7-18); CALCIUM 8.2 MG/DL (8.5-10.1); CARBON DIOXIDE 30 MMOL/L (21-32); CHLORIDE 108 MMOL/L (98-107); CREATININE 0.9 MG/DL (0.55-1.30); PHOSPHORUS 2.9 MG/DL (2.5-4.9); POTASSIUM 3.7 MMOL/L (3.5-5.1); SODIUM 141 MMOL/L (136-145)
--- NOTE | 2018-07-20 07:46 | NUR ---
NURSE NOTES: Patient alert to name,respirations unlabored,IV fluids as ordered,nn complaints at this time,call light within reach,beed alarm is on
[2018-07-20 08:00] VITALS: BP_SYST 122; BP_DIAS 58; BP_DIAS 88
[2018-07-20] MEDS ORDERED: Spironolactone 25mg tab ORAL SCH (09:00)
[2018-07-20] MEDS: Pantoprazole Inj IVP SCH (10:16)
[2018-07-20] MEDS: Memantine 5 MG TAB ORAL SCH ×2 (10:29→18:12)
[2018-07-20] MEDS: Bactrim-DS 1 tab ORAL SCH (10:32)
[2018-07-20] MEDS: Heparin 5000 units/ml inj SUBQ SCH (10:33)
--- NOTE | 2018-07-20 10:45 | NUR ---
RD ASSESSMENT & RECOMMENDATIONS SEE CARE ACTIVITY FOR COMPLETE ASSESSMENT DAILY ESTIMATED NEEDS: Needs based on Wound, DM, cardiac 55.9kg 30-35 kcals/kg 7653-4964 total kcals 1.25-1.5 g protein/kg 70-84 g total protein 25-30 mL/kg 6120-6145 total fluid mLs NUTRITION DIAGNOSIS: 1) Increased kcal and protein needs r/t wound healing as evidenced by pt presents w/ DTI x2. 2) Difficulty swallowing r/t dysphagia as evidenced by STONE RIGGER sav leung for liquify puree texture NTL. 3) Altered nutrition related lab values r/t diabetes as evidenced by A1C 11.1, adm w/ Uglu 4+, w/ hypo and hyperglycemia. CURRENT DIET: Regular liquify puree NTL PO DIET RECOMMENDATIONS: Maintain liberal Regular diet d/t variable- poor po/ texture per STONE RIGGER ADDITIONAL RECOMMENDATIONS: 1) Wound care: MARIA DOLORES BID + MVI x1 + VIT C 250Mg daily 2) pt w/ added P200 mattress + pump -> BED SCALE REQUIRES RE-CALIBRATION FOR ACCURATE WEIGHT 3) Add GLUCERNA TID w/ current variable to poor po intake
[2018-07-20] MEDS: Dextrose 10% 1,000 ML IV SCH (11:30)
[2018-07-20 12:00] VITALS: BP 120/63
--- NOTE | 2018-07-20 12:00 | Progress Note ---
DATE: 07/20/2018 SUBJECTIVE: The patient is a 73-year-old female patient. She continues to have some confusion, disorganized thought process, and altered mental status worsened by stress of her medical illness. That is why, her attending physician has requested daily psychiatric consultation to help clear for disorganized thought process. MENTAL STATUS EXAMINATION: This is a 73-year-old female. Appearance is disheveled. Attitude, irritable and agitated. Affect, guarded and restricted. Intellect poor. Mood, depressed and anxious. Motor activity, psychomotor agitation. Attention span is poor. Orientation x2. Speech is pressured. Thought process, disorganized and illogical. Thought content, denies auditory or visual hallucinations or delusions. Insight and judgment is poor. DIAGNOSIS: Major depressive disorder, mild, recurrent with psychotic features. PLAN: Treat her with Lexapro 5 mg daily, Ativan 2 mg IV q.2 hours p.r.n. anxiety and agitation, and Namenda 5 mg twice a day to prevent any further decline in her cognition. I encouraged her to interact appropriately with staff and other patients. Chart reviewed. Discussed with staff. The patient is seen and assessed in her room. Katie Walker M.D. DR: JOSE ARMANDO JOB#: [id number] CC:
--- NOTE | 2018-07-20 12:51 | Infectious Diseases Prog Note ---
Assessment/Plan Assessment/Plan Abx: Zosyn 07/13- Assessment: SIRS- ?sepsis vs reactive to hyperglycemia/dehydration- ?UTI -u/a no pyuria; ucx >100k E.coli (R Ancef, CTX; S Zosyn, cipro/levo, bactrim) -CXR: Chronic and age-related changes as described, including evidence of old infarcts Negative for acute intracranial bleed or mass effect Gram positive bacteremia- contaminant -07/13 BCx / S. simulans; 07/15 Bcx NTD Afebrile Leukocytosis, SP Lactic acidosis, SP Hyperglycemia, likely NKHH Acute on chronic encephalopathy -CT head: Chronic and age-related changes as described, including evidence of old infarcts. Negative for acute intracranial bleed or mass effect Dementia HTN CAD schizophrenia dysphagia PR resident Plan: D/c Bactrim #4/3 for UTI and monitor off abx -07/19 SP IV Vancomycin #5 - 07/16/18 SP Zosyn #4 -f/u repeat 2 sets of Bcx -f/u cx -MOnitor CBC/CMP, temperatures Thank you for this consultation. Will continue to follow along with you. Subjective Allergies: Coded Allergies: No Known Allergies (Unverified , 07/13/18) Subjective afebrile at 2l NC no leukocytosis repeat Bcx NTD Objective Vital Signs Last 24 Hour Vital Signs Date Time Temp Pulse Resp B/P (MAP) Pulse Ox O2 Delivery O2 Flow Rate FiO2 07/20/18 08:00 98.1 88 17 122/88 (99) 95 07/20/18 06:54 85 14 Room Air 21 07/20/18 04:30 97.9 90 16 118/56 (76) 07/20/18 00:00 97.4 91 16 131/59 (83) 96 07/19/18 21:00 Room Air 07/19/18 20:00 88 16 Room Air 21 07/19/18 20:00 98.3 89 16 128/58 (81) 98 07/19/18 16:00 97.9 89 19 134/61 (85) 96 Height (Feet): 5 Height (Inches): 7.00 Weight (Pounds): 103 Objective General Appearance: mild distress, thin, other - Staring off into space. Appears ill. unable to answer questions., Chronically Ill HEENT: atraumatic, dry mucus membranes Neck: normal inspection, supple, no bony tend Respiratory: normal inspection, lungs clear, normal breath sounds, no respiratory distress, no retraction, no wheezing Cardiovascular regular rate, rhythm, no edema Gastrointestinal: soft, decreased bowel sounds Musculoskeletal: normal inspection, back normal Neurologic: other - Unable to full assess, appears generally confused Skin: warm/dry Laboratory Tests Test 07/20/18 07:05 White Blood Count 7.2 K/UL (4.8-10.8) Red Blood Count 3.85 M/UL (4.20-5.40) L Hemoglobin 10.3 G/DL (12.0-16.0) L Hematocrit 31.2 % (37.0-47.0) L Mean Corpuscular Volume 81 FL (80-99) Mean Corpuscular Hemoglobin 26.7 PG (27.0-31.0) L Mean Corpuscular Hemoglobin Concent 33.0 G/DL (32.0-36.0) Red Cell Distribution Width 11.6 % (11.6-14.8) Platelet Count 322 K/UL (150-450) Mean Platelet Volume 6.2 FL (6.5-10.1) L Neutrophils (%) (Auto) 75.4 % (45.0-75.0) H Lymphocytes (%) (Auto) 16.2 % (20.0-45.0) L Monocytes (%) (Auto) 7.2 % (1.0-10.0) Eosinophils (%) (Auto) 1.0 % (0.0-3.0) Basophils (%) (Auto) 0.3 % (0.0-2.0) Sodium Level 141 MMOL/L (136-145) Potassium Level 3.7 MMOL/L (3.5-5.1) Chloride Level 108 MMOL/L (98-107) H Carbon Dioxide Level 30 MMOL/L (21-32) Anion Gap 4 mmol/L (5-15) L Blood Urea Nitrogen 1 mg/dL (7-18) L Creatinine 0.9 MG/DL (0.55-1.30) Estimat Glomerular Filtration Rate mL/min (>60) Glucose Level 96 MG/DL (74-106) Uric Acid 3.0 MG/DL (2.6-7.2) Calcium Level 8.2 MG/DL (8.5-10.1) L Phosphorus Level 2.9 MG/DL (2.5-4.9) Magnesium Level 2.1 MG/DL (1.8-2.4) Total Bilirubin 0.3 MG/DL (0.2-1.0) Aspartate Amino Transf (AST/SGOT) 50 U/L (15-37) H Alanine Aminotransferase (ALT/SGPT) 61 U/L (12-78) Alkaline Phosphatase 30 U/L (46-116) L C-Reactive Protein, Quantitative 9.2 mg/dL (0.00-0.90) H Pro-B-Type Natriuretic Peptide 406 pg/mL (0-125) H Total Protein 6.7 G/DL (6.4-8.2) Albumin 1.8 G/DL (3.4-5.0) L Globulin 4.9 g/dL Albumin/Globulin Ratio 0.4 (1.0-2.7) L Current Medications Medications (Trade) Dose Ordered Sig/Elizabeth Route PRN Reason Start Time Stop Time Status Last Admin Dose Admin Acetaminophen (Tylenol) 650 mg Q4H PRN ORAL Fever 07/15/18 15:12 08/12/18 15:11 Dextrose 1,000 ml @ 30 mls/hr Q24H IV 07/19/18 11:30 08/18/18 11:29 07/19/18 11:50 Dextrose (Dextrose 50%) 25 ml Q30M PRN IV Hypoglycemia 07/15/18 15:15 08/13/18 06:44 07/19/18 12:28 Dextrose (Dextrose 50%) 50 ml Q30M PRN IV Hypoglycemia 07/15/18 15:15 08/13/18 06:44 07/19/18 06:07 Escitalopram Oxalate (Lexapro) 5 mg DAILY ORAL 07/16/18 09:00 08/13/18 08:59 07/20/18 10:28 Heparin Sodium (Porcine) (Heparin 5000 units/ml) 5,000 units EVERY 12 HOURS SUBQ 07/15/18 21:00 08/12/18 20:59 07/20/18 10:33 Insulin Aspart (NovoLOG) AC+HS SUBQ 07/15/18 16:30 08/13/18 08:59 07/20/18 05:50 Lorazepam (Ativan 2mg/ml 1ml) 2 mg Q2H PRN IV agitation 07/15/18 15:13 07/21/18 15:12 Memantine (Namenda) 5 mg BID ORAL 07/15/18 18:00 08/14/18 17:59 07/20/18 10:29 Morphine Sulfate (Morphine Sulfate) 4 mg Q4H PRN IVP Severe Pain (Pain Scale 7-10) 07/15/18 15:13 07/21/18 15:12 Nitroglycerin (Ntg) 0.4 mg Q5M PRN SL Prn Chest Pain 07/15/18 15:15 08/12/18 11:29 Ondansetron HCl (Zofran) 4 mg Q6H PRN IVP Nausea & Vomiting 07/15/18 15:13 08/12/18 15:12 Pantoprazole (Protonix) 40 mg EVERY 12 HOURS IVP 07/15/18 21:00 08/12/18 20:59 07/20/18 10:16 Polyethylene Glycol (Miralax) 17 gm DAILYPRN PRN ORAL Constipation 07/15/18 18:45 08/13/18 18:44 Spironolactone (Aldactone) 25 mg DAILY ORAL 07/20/18 09:00 08/19/18 08:59 07/20/18 10:29 Trimethoprim/ Sulfamethoxazole (Bactrim-DS) 1 tab Q12HR ORAL 07/16/18 21:00 07/23/18 20:59 07/20/18 10:32 Maricarmen Weiss M.D. Jul 20, 2018 12:51
--- NOTE | 2018-07-20 14:20 | Pulmonology Progress Note ---
Assessment/Plan Problems: (1) Acute metabolic encephalopathy (2) Hyperosmolar coma (3) Diabetes mellitus (4) Alzheimer's dementia (5) History of CVA (cerebrovascular accident) Assessment/Plan improving more awake Na lower K supplement swallow evaluation reviewed pt/ot check electrolytes wound care symptomatic treatment dvt prophylaxis. dc planning Subjective ROS Limited/Unobtainable: No Constitutional: Reports: no symptoms HEENT: Repors: no symptoms Respiratory: Reports: no symptoms Allergies: Coded Allergies: No Known Allergies (Unverified , 07/13/18) Objective Last 24 Hour Vital Signs Date Time Temp Pulse Resp B/P (MAP) Pulse Ox O2 Delivery O2 Flow Rate FiO2 07/20/18 08:00 98.1 88 17 122/88 (99) 95 07/20/18 06:54 85 14 Room Air 21 07/20/18 04:30 97.9 90 16 118/56 (76) 07/20/18 00:00 97.4 91 16 131/59 (83) 96 07/19/18 21:00 Room Air 07/19/18 20:00 88 16 Room Air 21 07/19/18 20:00 98.3 89 16 128/58 (81) 98 07/19/18 16:00 97.9 89 19 134/61 (85) 96 Intake and Output 07/19/18 07/20/18 19:00 07:00 Intake Total 550 ml 100 ml Output Total 500 ml Balance 550 ml -400 ml IV Total 550 ml 100 ml Output Urine Total 500 ml # Bowel Movements 1 Objective General Appearance: WD/WN Lines, tubes and drains: peripheral HEENT: normocephalic, atraumatic Neck: non-tender, normal alignment Respiratory/Chest: chest wall non-tender, lungs clear Breasts: no masses Cardiovascular/Chest: normal peripheral pulses, normal rate Abdomen: normal bowel sounds Genitourinary/Rectal: normal genital exam Extremities: normal range of motion 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 Laboratory Tests 07/20/18 07:05: White Blood Count 7.2, Red Blood Count 3.85L, Hemoglobin 10.3L, Hematocrit 31.2L , Mean Corpuscular Volume 81, Mean Corpuscular Hemoglobin 26.7L, Mean Corpuscular Hemoglobin Concent 33.0, Red Cell Distribution Width 11.6, Platelet Count 322, Mean Platelet Volume 6.2L, Neutrophils (%) (Auto) 75.4H, Lymphocytes (%) (Auto) 16.2L, Monocytes (%) (Auto) 7.2, Eosinophils (%) (Auto) 1.0, Basophils (%) (Auto) 0.3, Sodium Level 141, Potassium Level 3.7, Chloride Level 108H, Carbon Dioxide Level 30, Anion Gap 4L, Blood Urea Nitrogen 1L, Creatinine 0.9, Estimat Glomerular Filtration Rate , Glucose Level 96, Uric Acid 3.0, Calcium Level 8.2L, Phosphorus Level 2.9, Magnesium Level 2.1, Total Bilirubin 0.3, Aspartate Amino Transf (AST/SGOT) 50H, Alanine Aminotransferase (ALT/SGPT) 61, Alkaline Phosphatase 30L, C-Reactive Protein, Quantitative 9.2H, Pro-B-Type Natriuretic Peptide 406H, Total Protein 6.7, Albumin 1.8L, Globulin 4.9, Albumin /Globulin Ratio 0.4L Current Medications Medications (Trade) Dose Ordered Sig/Elizabeth Route PRN Reason Start Time Stop Time Status Last Admin Dose Admin Acetaminophen (Tylenol) 650 mg Q4H PRN ORAL Fever 07/15/18 15:12 08/12/18 15:11 Dextrose 1,000 ml @ 30 mls/hr Q24H IV 07/19/18 11:30 08/18/18 11:29 07/19/18 11:50 Dextrose (Dextrose 50%) 25 ml Q30M PRN IV Hypoglycemia 07/15/18 15:15 08/13/18 06:44 07/19/18 12:28 Dextrose (Dextrose 50%) 50 ml Q30M PRN IV Hypoglycemia 07/15/18 15:15 08/13/18 06:44 07/19/18 06:07 Escitalopram Oxalate (Lexapro) 5 mg DAILY ORAL 07/16/18 09:00 08/13/18 08:59 07/20/18 10:28 Heparin Sodium (Porcine) (Heparin 5000 units/ml) 5,000 units EVERY 12 HOURS SUBQ 07/15/18 21:00 08/12/18 20:59 07/20/18 10:33 Insulin Aspart (NovoLOG) AC+HS SUBQ 07/15/18 16:30 08/13/18 08:59 07/20/18 05:50 Lorazepam (Ativan 2mg/ml 1ml) 2 mg Q2H PRN IV agitation 07/15/18 15:13 07/21/18 15:12 Memantine (Namenda) 5 mg BID ORAL 07/15/18 18:00 08/14/18 17:59 07/20/18 10:29 Morphine Sulfate (Morphine Sulfate) 4 mg Q4H PRN IVP Severe Pain (Pain Scale 7-10) 07/15/18 15:13 07/21/18 15:12 Nitroglycerin (Ntg) 0.4 mg Q5M PRN SL Prn Chest Pain 07/15/18 15:15 08/12/18 11:29 Ondansetron HCl (Zofran) 4 mg Q6H PRN IVP Nausea & Vomiting 07/15/18 15:13 08/12/18 15:12 Pantoprazole (Protonix) 40 mg EVERY 12 HOURS IVP 07/15/18 21:00 08/12/18 20:59 07/20/18 10:16 Polyethylene Glycol (Miralax) 17 gm DAILYPRN PRN ORAL Constipation 07/15/18 18:45 08/13/18 18:44 Spironolactone (Aldactone) 25 mg DAILY ORAL 07/20/18 09:00 08/19/18 08:59 07/20/18 10:29 Maisha Bryant MD Jul 20, 2018 14:20
--- NOTE | 2018-07-20 14:25 | General Progress Note ---
Assessment/Plan Problem List: (1) Hyperglycemia ICD Codes: R73.9 - Hyperglycemia, unspecified SNOMED: 24913300 (2) Hypernatremia ICD Codes: E87.0 - Hyperosmolality and hypernatremia SNOMED: 77871897 (3) DKA, type 1 ICD Codes: E10.10 - Type 1 diabetes mellitus with ketoacidosis without coma SNOMED: 13940262, 386832761 (4) Acute metabolic encephalopathy ICD Codes: G93.41 - Metabolic encephalopathy SNOMED: 65149399, 371466526 Status: stable, progressing Assessment/Plan bs control pt diet neph f/u cbc bmp am ltach transfer Subjective Constitutional: Reports: weakness Allergies: Coded Allergies: No Known Allergies (Unverified , 07/13/18) All Systems: reviewed and negative except above Subjective sleepy calm Objective Last 24 Hour Vital Signs Date Time Temp Pulse Resp B/P (MAP) Pulse Ox O2 Delivery O2 Flow Rate FiO2 07/20/18 08:00 98.1 88 17 122/88 (99) 95 07/20/18 06:54 85 14 Room Air 21 07/20/18 04:30 97.9 90 16 118/56 (76) 07/20/18 00:00 97.4 91 16 131/59 (83) 96 07/19/18 21:00 Room Air 07/19/18 20:00 88 16 Room Air 21 07/19/18 20:00 98.3 89 16 128/58 (81) 98 07/19/18 16:00 97.9 89 19 134/61 (85) 96 Intake and Output 07/19/18 07/20/18 19:00 07:00 Intake Total 550 ml 100 ml Output Total 500 ml Balance 550 ml -400 ml IV Total 550 ml 100 ml Output Urine Total 500 ml # Bowel Movements 1 Laboratory Tests 07/20/18 07:05: White Blood Count 7.2, Red Blood Count 3.85L, Hemoglobin 10.3L, Hematocrit 31.2L , Mean Corpuscular Volume 81, Mean Corpuscular Hemoglobin 26.7L, Mean Corpuscular Hemoglobin Concent 33.0, Red Cell Distribution Width 11.6, Platelet Count 322, Mean Platelet Volume 6.2L, Neutrophils (%) (Auto) 75.4H, Lymphocytes (%) (Auto) 16.2L, Monocytes (%) (Auto) 7.2, Eosinophils (%) (Auto) 1.0, Basophils (%) (Auto) 0.3, Sodium Level 141, Potassium Level 3.7, Chloride Level 108H, Carbon Dioxide Level 30, Anion Gap 4L, Blood Urea Nitrogen 1L, Creatinine 0.9, Estimat Glomerular Filtration Rate , Glucose Level 96, Uric Acid 3.0, Calcium Level 8.2L, Phosphorus Level 2.9, Magnesium Level 2.1, Total Bilirubin 0.3, Aspartate Amino Transf (AST/SGOT) 50H, Alanine Aminotransferase (ALT/SGPT) 61, Alkaline Phosphatase 30L, C-Reactive Protein, Quantitative 9.2H, Pro-B-Type Natriuretic Peptide 406H, Total Protein 6.7, Albumin 1.8L, Globulin 4.9, Albumin /Globulin Ratio 0.4L Height (Feet): 5 Height (Inches): 7.00 Weight (Pounds): 103 General Appearance: lethargic EENT: normal ENT inspection Neck: non-tender Cardiovascular: normal peripheral pulses, normal rate, regular rhythm Respiratory/Chest: chest wall non-tender, lungs clear, normal breath sounds Abdomen: normal bowel sounds, non tender, soft Extremities: normal inspection Edema: no edema noted Arm (L), no edema noted Arm (R), no edema noted Leg (L), no edema noted Leg (R), no edema noted Pedal (L), no edema noted Pedal (R), no edema noted Generalized Neurologic: motor weakness Skin: normal pigmentation, warm/dry Dave Dugan DO Jul 20, 2018 14:25
--- NOTE | 2018-07-20 15:05 | Diagnostic Imaging Report ---
Indications: Reason For Exam: DYSPHAGIA Technique: Patient ingested multiple substances under the supervision of speech pathology. Video fluoroscopic recording performed. Total fluoroscopy time 299 seconds. Total dose area product 0.10530 mGycm2 Total number of images-12 Comparison: none Findings: Single episode of penetration of thin liquid barium noted. No cesia aspiration. [place] thick liquid barium demonstrates early pooling in the vallecula and piriform sinuses. No definite penetration or aspiration. Delayed initiation of deglutition with honey thick liquid barium no aspiration or penetration. Delayed initiation of deglutition with barium puree, no aspiration or penetration. Impression: Single episode of penetration of thin liquid barium. Negative for aspiration Other findings as noted Please refer to speech pathology report for more detailed analysis
--- NOTE | 2018-07-20 15:19 | NUR ---
*-* DISCHARGE PLANNED *-* PATIENT IS DISCHARGED TO: [facility] ROOM# 18-B JAIL T:[phone] FOR NURSE TO NURSE REPORT [facility] HAS JARED ARRANGED FOR SHEET MET[employer] ASSEM[employer]ER AND RIVETER AT [id number] Addendum: 07/20/18 at 1528 by SHEELA MCCABE CM *-* SPOKE TO DAUGHTER MADE AWARE THAT HER MOTHER WOULD BE RETURNING TO [place].
--- NOTE | 2018-07-20 16:41 | Nephrology Progress Note ---
Assessment/Plan Problem List: (1) Hypernatremia (2) Hyperglycemia (3) Acute metabolic encephalopathy Assessment Renal failure, mainly pre renal, partly renal? Sepsis: High lactate and High WBCs and Tachycardia Previoes CVAs Encephalopathy Hyperglycemia + Proteinuria Plan K supplements as needed Hydrate as needed BS control BP control Monitor renal parameters Urine studies avoid Nephrotoxics 2D echo Left ventricular ejection fraction estimated to be 55-60 %. Subjective ROS Limited/Unobtainable: No Constitutional: Reports: malaise Objective Objective Last 24 Hour Vital Signs Date Time Temp Pulse Resp B/P (MAP) Pulse Ox O2 Delivery O2 Flow Rate FiO2 07/20/18 12:00 97.8 86 18 120/63 (82) 96 07/20/18 09:00 Room Air 07/20/18 08:00 98.1 88 17 122/58 (79) 95 07/20/18 06:54 85 14 Room Air 21 07/20/18 04:30 97.9 90 16 118/56 (76) 07/20/18 00:00 97.4 91 16 131/59 (83) 96 07/19/18 21:00 Room Air 07/19/18 20:00 88 16 Room Air 21 07/19/18 20:00 98.3 89 16 128/58 (81) 98 Intake and Output 07/19/18 07/20/18 19:00 07:00 Intake Total 550 ml 100 ml Output Total 500 ml Balance 550 ml -400 ml IV Total 550 ml 100 ml Output Urine Total 500 ml # Bowel Movements 1 Current Medications Medications (Trade) Dose Ordered Sig/Elizabeth Route PRN Reason Start Time Stop Time Status Last Admin Dose Admin Acetaminophen (Tylenol) 650 mg Q4H PRN ORAL Fever 07/15/18 15:12 08/12/18 15:11 Dextrose 1,000 ml @ 30 mls/hr Q24H IV 07/19/18 11:30 08/18/18 11:29 07/19/18 11:50 Dextrose (Dextrose 50%) 25 ml Q30M PRN IV Hypoglycemia 07/15/18 15:15 08/13/18 06:44 07/19/18 12:28 Dextrose (Dextrose 50%) 50 ml Q30M PRN IV Hypoglycemia 07/15/18 15:15 08/13/18 06:44 07/19/18 06:07 Escitalopram Oxalate (Lexapro) 5 mg DAILY ORAL 07/16/18 09:00 08/13/18 08:59 07/20/18 10:28 Heparin Sodium (Porcine) (Heparin 5000 units/ml) 5,000 units EVERY 12 HOURS SUBQ 07/15/18 21:00 08/12/18 20:59 07/20/18 10:33 Insulin Aspart (NovoLOG) AC+HS SUBQ 07/15/18 16:30 08/13/18 08:59 07/20/18 05:50 Lorazepam (Ativan 2mg/ml 1ml) 2 mg Q2H PRN IV agitation 07/15/18 15:13 07/21/18 15:12 Memantine (Namenda) 5 mg BID ORAL 07/15/18 18:00 08/14/18 17:59 07/20/18 10:29 Morphine Sulfate (Morphine Sulfate) 4 mg Q4H PRN IVP Severe Pain (Pain Scale 7-10) 07/15/18 15:13 07/21/18 15:12 Nitroglycerin (Ntg) 0.4 mg Q5M PRN SL Prn Chest Pain 07/15/18 15:15 08/12/18 11:29 Ondansetron HCl (Zofran) 4 mg Q6H PRN IVP Nausea & Vomiting 07/15/18 15:13 08/12/18 15:12 Pantoprazole (Protonix) 40 mg EVERY 12 HOURS IVP 07/15/18 21:00 08/12/18 20:59 07/20/18 10:16 Polyethylene Glycol (Miralax) 17 gm DAILYPRN PRN ORAL Constipation 07/15/18 18:45 08/13/18 18:44 Spironolactone (Aldactone) 25 mg DAILY ORAL 07/20/18 09:00 08/19/18 08:59 07/20/18 10:29 Laboratory Tests 07/20/18 07:05: White Blood Count 7.2, Red Blood Count 3.85L, Hemoglobin 10.3L, Hematocrit 31.2L , Mean Corpuscular Volume 81, Mean Corpuscular Hemoglobin 26.7L, Mean Corpuscular Hemoglobin Concent 33.0, Red Cell Distribution Width 11.6, Platelet Count 322, Mean Platelet Volume 6.2L, Neutrophils (%) (Auto) 75.4H, Lymphocytes (%) (Auto) 16.2L, Monocytes (%) (Auto) 7.2, Eosinophils (%) (Auto) 1.0, Basophils (%) (Auto) 0.3, Sodium Level 141, Potassium Level 3.7, Chloride Level 108H, Carbon Dioxide Level 30, Anion Gap 4L, Blood Urea Nitrogen 1L, Creatinine 0.9, Estimat Glomerular Filtration Rate , Glucose Level 96, Uric Acid 3.0, Calcium Level 8.2L, Phosphorus Level 2.9, Magnesium Level 2.1, Total Bilirubin 0.3, Aspartate Amino Transf (AST/SGOT) 50H, Alanine Aminotransferase (ALT/SGPT) 61, Alkaline Phosphatase 30L, C-Reactive Protein, Quantitative 9.2H, Pro-B-Type Natriuretic Peptide 406H, Total Protein 6.7, Albumin 1.8L, Globulin 4.9, Albumin /Globulin Ratio 0.4L Height (Feet): 5 Height (Inches): 7.00 Weight (Pounds): 103 Objective no change Nima Greenfield MD Jul 20, 2018 16:40
--- NOTE | 2018-07-20 19:00 | NUR ---
NURSE NOTES: Patient discharge to [facility],IV removed,patient went with vasquez catheter,Patient has no personal belongings.Patient family member Avevry patient sister,aware of patient discharge.Report was given to Doris RUEDA At [facility].Pictures taken of bilateral feet and sacral area.[facility] personnel will transport Patient.
--- NOTE | 2018-07-22 10:15 | Discharge Summary ---
Discharge Summary Discharge Summary _ DATE OF ADMISSION: 07/13/2018 DATE OF DISCHARGE: 07/20/2018 DISCHARGED BY: Dr Dugan REASON FOR ADMISSION: 73 years old female with past medical history of diabetes mellitus, hypertension , coronary artery disease, history of CVA, dysphagia, schizophrenia, dementia, resident of senior living facility, was sent from the senior living facility for evaluation since she appeared to be more confused than usual. Clinical examination revealed evidence of severe dehydration with dry mucous membranes. Vital signs revealed tachycardia , no fevers. Laboratory workup revealed leukocytosis with WBC 14.1 , stable hemoglobin and hematocrit. Lactic acid 4.6 . Urinalysis revealed +1 protein, +4 glucose, negative for ketones , no pyuria , many bacteria. BUN 74, creatinine 2.0. Sodium 157. Glucose 852 . Potassium 4.2, anion gap 13 . Troponin negative. Pro BNP 658 . EKG revealed sinus tachycardia, no acute ischemic changes . Albumin 2.[address] of the head revealed chronic age-related changes ,but no acute intracranial pathology. Chest x-ray demonstrated no acute cardiopulmonary pathology Patient started on fluid boluses for hydration. Patient started on insulin drip due to elevated glucose. Patient pancultured and started on empiric antibiotics. Patient admitted for further management CONSULTANTS: manager radiation Dr. Mcgraw pulmonary Dr. Bryant ID specialist Dr. Morales otter trawler boatswain Dr. Greenfield psychiatrist Dr. Walker disabilities services officer Dr. Gaona [facility]SE: Patient admitted and started on intravenous hydration and empiric antibiotics. Urine culture revealed E. coli , blood culture initially revealed 1 out of 4 gram-positive cocci in clusters. Repeated blood culture were negative. Antibiotic regimen was optimized as per infectious disease specialist recommendations. Initial gram-positive bacteremia was likely contaminant. Leukocytosis resolved. Lactic acidosis resolved. Patient remained afebrile. Patient completed antibiotics for urinary tract infection. Infectious disease doctor recommended to monitor patient off antibiotic and observe clinically . Car Rider seen and evaluated patient due to hypotension. Initial hypotension improved with the IV hydration. According to manager radiation, initial hypotension was probably due to dehydration . Echocardiogram revealed preserved ejection fraction 55-60% with mild left ventricular hypertrophy. No evidence of wall motion abnormality. Right ventricular systolic pressure of 39 consistent with a mild pulmonary hypertension. Arterial duplex revealed calcification throughout the superficial femoral and popliteal arteries, but no evidence of stenosis or occlusion within these segments. School Bus Driver/Custodian followed. Per otter trawler boatswain patient had prerenal failure likely due to hypovolemia/ dehydration along with sepsis. Renal parameters and electrolytes were closely monitored, electrolytes corrected as needed and nephrotoxins were avoided. Patient was hydrated. Urine studies were done. Acute renal failure resolved. Prior to discharge BUN 1 ,creatinine 0.9, sodium down to 141. Supplemental oxygen provided as needed to keep pulse oximetry above 92%. Pulmonary toilet was on standby as needed. Prior to discharge pulse oximetry stable on room air. Traffic Agent closely followed. Insulin drip was discontinued and patient started on long-acting Levemir , sliding scale of short acting insulin and Starlix. Long-acting insulin was later discontinued due to low blood glucose readings. Per disabilities services officer, no need for scheduled insulin order. He recommended to continue sliding scale of insulin as needed . Hypoglycemia protocol was ordered, patient was closely monitored for evidence of hypoglycemia. No further hypoglycemia. Hemoglobin A1c -11.1, clearly not at goal. Patient will need further optimization of anti-glycemic regimen as outpatient. Hemoglobin and hematocrit were closely monitored with goal to keep hemoglobin above 7. Prior to discharge hemoglobin 10.3 , hematocrit 31.2 Anemia workup revealed low folate and low iron , but high ferritin. Patient started on folate replacement. Closely monitor counts at the facility upon discharge. GI prophylaxis provided. Bowel regimen instituted. Video swallow evaluation was negative for aspiration and revealed single episode of penetration of thin liquid body. Diet provided as per speech therapist recommendation with strict aspiration / reflux precautions Oral diet recommended for quality of life only. Nutritional recommendations implemented in plan of care. Psychiatrist closely followed. Psychiatric medication regimen optimized as per psychiatrist. Cognitive therapy provided. Patient clinically stabilized. Mental status back to baseline. Acute renal failure and hypernatremia resolved. Patient was stable for discharge back to senior living facility for continuation of care. FINAL DIAGNOSES: Acute metabolic encephalopathy Hyperosmolar coma Acute renal failure- resolved Hypernatremia -resolved Dehydration Dysphagia Folate deficiency History of CVA Major depressive disorder, mild, recurrent with psychotic features Alzheimer dementia DISCHARGE MEDICATIONS: See Medication Reconciliation list. DISCHARGE INSTRUCTIONS: Patient was discharged to the senior living facility. Follow up with medical doctor at the facility. I have been assigned to dictate discharge summary for this account. I was not involved in the patient's management. Kenia Thorne NP Jul 22, 2018 10:15
== END 2018-07-20 19:10 | DRG 871 ==
LOC: EDBD 09:32 → EMR 10:10 → ICU 10:15 → EDBEDREQ 12:14 → 2E 07-14 18:57 → 4E 07-15 15:07
DX: A41.9 Sepsis, unspecified organism (principal); E11.01 Type 2 diabetes mellitus with hyperosmolarity with coma; G93.41 Metabolic encephalopathy; N17.9 Acute kidney failure, unspecified; F33.0 Major depressive disorder, recurrent, mild; E87.0 Hyperosmolality and hypernatremia; Z68.1 Body mass index [BMI] 19.9 or less, adult; E11.65 Type 2 diabetes mellitus with hyperglycemia; I25.10 Atherosclerotic heart disease of native coronary artery without angina pectoris; F20.9 Schizophrenia, unspecified; G30.9 Alzheimer's disease, unspecified; F02.80 Dementia in other diseases classified elsewhere, unspecified severity, without behavioral disturbance, psychotic disturbance, mood disturbance, and anxiety; I12.9 Hypertensive chronic kidney disease with stage 1 through stage 4 chronic kidney disease, or unspecified chronic kidney disease; E11.22 Type 2 diabetes mellitus with diabetic chronic kidney disease; N18.9 Chronic kidney disease, unspecified; E86.0 Dehydration; R13.10 Dysphagia, unspecified; E53.8 Deficiency of other specified B group vitamins; I27.20 Pulmonary hypertension, unspecified; M19.90 Unspecified osteoarthritis, unspecified site; Z79.84 Long term (current) use of oral hypoglycemic drugs; Z79.82 Long term (current) use of aspirin; F41.9 Anxiety disorder, unspecified; R65.20 Severe sepsis without septic shock
CPT/HCPCS: 36415; 70450; 71045; 74230; 80048; 80053; 80061; 80076; 80202; 81003; 82550; 82607; 82728; 82746; 82962; 82977; 83036; 83540; 83550; 83605; 83690; 83735; 83880; 84100; 84300; 84443; 84484; 84550; 85007; 85025; 85610; 85651; 85730; 86140; 87040; 87081; 87086; 87181; 93005; 93306; 93925; 94664; 94760; 96361; 96365; 99291; J1815; J7620; J8499; S5561